=== PATIENT | male | born 1930 | race Caucasian/White ===

== ENCOUNTER 2019-03-27 08:30 | Inpatient (IN) ==
--- OUTSIDE RECORDS SUMMARY | 2019-03-27 08:34 | External Medical Summary | Continuity of Care Document ---
:1930 Author Name You Grover Address Unavailable Unavailable , Care Team Providers Name Role Phone William Torres PA-C Unavailable [email or web address] Unavailable [email or web address] Joycelyn Tinoco M.D. Unavailable [email or web address] Problems Diabetes mellitus (250.00) (E11.9) Chronic obstructive pulmonary disease (496) (J44.9) Obstructive sleep apnea (327.23) (G47.33) Osteoarthritis of knee (715.36) (M17.10) Dyslipidemia (272.4) (E78.5) Disc degeneration, lumbar (722.52) (M51.36) Diabetic peripheral neuropathy (250.60) (E11.42) Allergies and Adverse Reactions Aspirin TABS (Allergy) Medications OneTouch Ultra Blue In Vitro Strip; Test 3 times daily TRELL Callahan Start: 20-Nov-2009 Quantity: 100 Refills: 0 Ventolin HFA 108 (90 Base) MCG/ACT Inhal ation Aerosol Solution; INHALE 2 PUFFS EVERY 4 HOURS NEEDED FOR COUGH AND WHEEZE. Refills: 0 Coreg 3.125 MG Oral Tablet; Take 1 tablet twice daily Refills: 0 Potassium Chloride TBCR; TAKE 10 MEQ Three Times a Week Refills: 0 Clotrimazole-Betamethasone CREA Refills: 0 Furosemide 20 MG Oral Tablet; TAKE 1 TABLET 3 TIMES A WEEK Refills: 0 Advair Diskus 500-50 MCG/DOSE Inhalation Aerosol Powder Breath Activated; INHALE 1 PUFF TWICE DAILY. TRELL Torres Start: 22-Dec-2010 Quantity: 1 Refills: 5 Nasal CPAP; 11 cm of water, cflex of 2. Nasal pillows, 20 min ramp, heated, humidified.Dx: 327.23 MARYANNE: 99 months Sig: Wear q.h.s. Lenore Tinoco Start: 16-Aug-2013 Quantity: 1 Refills: 0 Mupirocin Calcium 2 % External Cream; Apply to nostril twice daily Lenore Tinoco Start: 27-Jun-2013 Quantity: 1 15 GM Tube Refills: 0 Spiriva HandiHaler 18 MCG Inhalation Capsule; INHALE O NE DOSE ONCE DAILY TRELL Torres Start: 02-Dec-2012 Quantity: 30 Refills: 3 Coumadin TABS; TAKE TABLET as directed Refills: 0 Procedures History of Knee Replacement Status: Comp leted History of Colonoscopy (Fiberoptic) Stat us: Completed Immunizations Pneumococcal polysaccharide vaccine, 23 valent On: 11-Jul-19 10 Prevnar 13 Intramuscular Suspension On: 06-Feb-2015 13:48 Lot #: [id number], [place] Social History - Smoking Status Former smoker Plan of Treatment Planned Observations Planned Goals not documented Results No Known Results Results not documented
[2019-03-27 08:57] LABS: Basophils # (auto) 0.03 K/uL (0-0.2); Basophils % (auto) 0.4 %; Eosinophils # (auto) 0.15 K/uL (0-0.5); Eosinophils % (auto) 1.8 %; Hematocrit (blood only) 39.6 % (42-52); Hemoglobin 12.8 g/dL (14.0-18.0); Immature Granulocytes # (auto) 0.01 K/uL (0.00-0.02); Immature Granulocytes % (auto) 0.1 %; Lymphocytes # (auto) 1.79 K/uL (1.2-3.4); Lymphocytes % (auto) 21.5 %; Mean Corpuscular Hemoglobin 29.4 pg (25-34); Mean Corpuscular Hgb Conc 32.3 g/dL (32-36); Mean Corpuscular Volume 90.8 fL (80-100); Mean Platelet Volume 10.7 fL (7.4-10.4); Monocytes # (auto) 0.66 K/uL (0.11-0.59); Monocytes % (auto) 7.9 %; Neutrophils # (auto) 5.67 K/uL (1.4-6.5); Neutrophils % (auto) 68.3 %; Platelet Count 154 K/uL (130-400); RDW Standard Deviation 49.7 fL (36.4-46.3); Red Blood Count 4.36 M/uL (4.7-6.1); White Blood Count 8.31 K/uL (4.8-10.8)
--- NOTE | 2019-03-27 09:09 | XRay Report ---
XR chest 1V portable CLINICAL HISTORY: Atypical chest pain COMPARISON STUDY: 06/08/2013 FINDINGS: The heart is enlarged. There is radiographic evidence of pulmonary edema. There is no lobar consolidation.[ IMPRESSION: Cardiomegaly and pulmonary edema pattern. Clinical and radiographic follow-up recommended Electronically signed by: Warner Parker M.D. 03/27/2019 9:07 AM
[2019-03-27 09:13] LABS: Albumin Level 3.2 gm/dl (3.4-5.0); BUN Creatinine Ratio 16.9 (10-20); Calcium 9.3 mg/dl (8.5-10.1); Creatinine Clr Calc Pharmacy 40.9 ml/min; Est GFR (African American) 41.1; Est GFR (Non-African American) 35.5; Potassium 4.3 mmol/L (3.5-5.1)
[2019-03-27 09:17] LABS: Albumin Globulin Ratio 0.7 (0.9-2); Bilirubin,Total 1.3 mg/dl (0.2-1); Globulin 4.7 gm/dl (2.5-4.0); Total Protein 7.9 gm/dl (6.4-8.2); Troponin I 0.025 ng/ml (0-0.045)
--- NOTE | 2019-03-27 11:28 | Emergency Department Note ---
Entered by Manolo Vitale acting as a scribe for History of Present Illness General Chief complaint: Chest Pain Stated complaint: CHEST PAIN Time Seen by Provider: 03/27/19 08:36 Source: patient History of Present Illness Provider complaint: Chest pain Onset (ago): day(s) 3 Location: chest Radiation: extremity Severity: similar to prior episodes Pain Consistency: + intermittent Relieved By: + other (Sitting up) Associated symptoms: + cough and + shortness of breath; no fever/chills and no nausea/vomiting The patient is an 88 year old male who presents to the Emergency Room with complaints of intermittent left sided chest pain that has been persistently occurring each night for the past 3 nights. The patient states he has a history of indigestion, especially over night, so he takes Tums to relieve the pain, however for the past 3 nights it has not been effective to help the pain. The patient adds that sometimes the pain radiates to his left shoulder. He also mentioned that the pain is usually better with sitting up and throughout the day it tends to subside. Additionally the patient endorses shortness of breath and cough that has been worse as of late. The patient reports his breathing difficulty is worse with exertion. Per the patient's family, his breathing issues initiated 15 years ago after having a severe case of pneumonia. The patient's family also mentioned that a couple of weeks ago the patient had an appointment with cardiology and everything was normal. The patient denies any fevers, nausea, or vomiting. Home Medications Home Medications Medication Instructions Recorded Confirmed Type atorvastatin 10 mg PO QAM 03/27/19 03/27/19 History fluticasone propion-salmeterol 1 inh INHALATION BID 03/27/19 03/27/19 History [Advair Diskus] furosemide 20 mg PO MOWEFR 03/27/19 03/27/19 History lisinopril 10 mg PO QAM 03/27/19 03/27/19 History tiotropium bromide [Spiriva with 1 cap INHALATION QAM 03/27/19 03/27/19 History HandiHaler] warfarin 2.5 mg PO SUSA 03/27/19 03/27/19 History warfarin 5 mg PO MOTUWETHFR 03/27/19 03/27/19 History Allergies Allergy/AdvReac Type Severity Reaction Status Date / Time aspirin Allergy Intermediate HIVES Verified 03/27/19 09:58 oxycodone AdvReac Mild INTOLERATE Verified 03/27/19 09:58 TO PERCOCET OR OXYCONTIN Past Med/Surg History Medical History Diabetes mellitus type II, controlled (Chronic) Coronary artery disease (Chronic) Sleep apnea (Chronic) Lower respiratory tract infection (Acute) Acute respiratory failure (Acute) Altered mental state (Acute) Dyslipidemia (Chronic) Diabetic neuropathy (Chronic) Abdominal aortic aneurysm (Chronic) CHF (congestive heart failure) (Chronic) "systolic and diastolic LVEF 40% May 2013" CKD (chronic kidney disease), stage III (Chronic) Cerebrovascular disease (Chronic) "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 and A total of 10 systems reviewed and were otherwise negative Physical Exam Vital Signs Vital Signs - 24 hr 03/27/19 08:37 03/27/19 08:40 03/27/19 08:41 Temperature 36.8 C Temperature Source Oral Sepsis Recent Fever Within 48 Hours No Sepsis Action Taken by Nursing No Action Required Pulse Rate 70 79 Pulse Rate from SpO2 Sensor 76 Pulse Rhythm Regular Pulse Strength Normal Respiratory Rate 20 22 Respiratory Effort / Characteristics Non-Labored Spontaneous Respiratory Depth Normal Respiratory Pattern Regular Blood Pressure 136/99 136/99 Blood Pressure Mean 111 111 Pulse Oximetry 94 93 93 Oxygen Delivery Method Room Air Room Air 03/27/19 08:42 03/27/19 08:50 03/27/19 09:00 Temperature Temperature Source Sepsis Recent Fever Within 48 Hours Sepsis Action Taken by Nursing Pulse Rate 76 73 71 Pulse Rate from SpO2 Sensor 80 72 74 Pulse Rhythm Pulse Strength Respiratory Rate 20 19 23 Respiratory Effort / Characteristics Respiratory Depth Respiratory Pattern Blood Pressure 130/69 Blood Pressure Mean 89 Pulse Oximetry 94 93 93 Oxygen Delivery Method 03/27/19 09:01 03/27/19 09:10 03/27/19 09:20 Temperature Temperature Source Sepsis Recent Fever Within 48 Hours Sepsis Action Taken by Nursing Pulse Rate 83 80 77 Pulse Rate from SpO2 Sensor 78 78 75 Pulse Rhythm Pulse Strength Respiratory Rate 22 25 H 21 Respiratory Effort / Characteristics Respiratory Depth Respiratory Pattern Blood Pressure Blood Pressure Mean Pulse Oximetry 93 94 93 Oxygen Delivery Method 03/27/19 09:30 03/27/19 09:31 03/27/19 09:40 Temperature Temperature Source Sepsis Recent Fever Within 48 Hours Sepsis Action Taken by Nursing Pulse Rate 62 75 72 Pulse Rate from SpO2 Sensor 69 72 74 Pulse Rhythm Pulse Strength Respiratory Rate 21 19 27 H Respiratory Effort / Characteristics Respiratory Depth Respiratory Pattern Blood Pressure 152/91 H Blood Pressure Mean 111 Pulse Oximetry 92 92 92 Oxygen Delivery Method 03/27/19 09:50 03/27/19 10:00 03/27/19 10:10 Temperature Temperature Source Sepsis Recent Fever Within 48 Hours Sepsis Action Taken by Nursing Pulse Rate 69 69 68 Pulse Rate from SpO2 Sensor 68 70 69 Pulse Rhythm Pulse Strength Respiratory Rate 21 20 19 Respiratory Effort / Characteristics Respiratory Depth Respiratory Pattern Blood Pressure 159/86 H Blood Pressure Mean 110 Pulse Oximetry 93 93 93 Oxygen Delivery Method 03/27/19 10:20 03/27/19 10:30 03/27/19 10:31 Temperature Temperature Source Sepsis Recent Fever Within 48 Hours Sepsis Action Taken by Nursing Pulse Rate 70 64 59 L Pulse Rate from SpO2 Sensor 66 70 65 Pulse Rhythm Pulse Strength Respiratory Rate 20 20 23 Respiratory Effort / Characteristics Respiratory Depth Respiratory Pattern Blood Pressure 160/88 H Blood Pressure Mean 112 Pulse Oximetry 92 91 93 Oxygen Delivery Method 03/27/19 10:40 03/27/19 10:50 Temperature Temperature Source Sepsis Recent Fever Within 48 Hours Sepsis Action Taken by Nursing Pulse Rate 71 72 Pulse Rate from SpO2 Sensor 71 68 Pulse Rhythm Pulse Strength Respiratory Rate 15 21 Respiratory Effort / Characteristics Respiratory Depth Respiratory Pattern Blood Pressure Blood Pressure Mean Pulse Oximetry 93 92 Oxygen Delivery Method CONSTITUTIONAL/VITAL SIGNS: Reviewed / noted above. GENERAL: Non-toxic in appearance. INTEGUMENTARY: Warm, dry, and [place]. HEAD: Normocephalic. EYES: without scleral icterus or trauma. ENT/OROPHARYNX: clear and moist. LYMPHADENOPATHY/NECK: Is supple without lymphadenopathy or meningismus. RESPIRATORY: Lungs clear and equal. CARDIOVASCULAR: Regular rate and rhythm. GI/ABDOMEN: Soft and nontender. No organomegaly or pulsatile mass. No rebound or guarding. Normal bowel sounds. EXTREMITIES: Warm and well perfused. BACK: No CVA tenderness. NEUROLOGICAL: Intact without focal deficits. PSYCHIATRIC: normal affect. MUSCULOSKELETAL: Normally developed with good muscle tone. Impression & Plan Intermittent left-sided chest pain Discharge Plan Visit Data Chief Complaint: Chest Pain Stated Complaint: CHEST PAIN ED Provider: Sunny Churchill Discharge Problem: Intermittent left-sided chest pain Forms Stand Alone Forms: My [facility] Prescriptions Prescriptions: No Action atorvastatin 10 mg tablet 10 mg PO QAM RF: 0 lisinopril 10 mg tablet 10 mg PO QAM RF: 0 warfarin 5 mg tablet 5 mg PO MOTUWETHFR RF: 0 warfarin 5 mg tablet 2.5 mg PO SUSA RF: 0 fluticasone propion-salmeterol [Advair Diskus] 500-50 mcg/dose blister with device 1 inh inhalation BID RF: 0 furosemide 20 mg tablet 20 mg PO MOWEFR RF: 0 Spiriva with HandiHaler 18 mcg capsule, w/inhalation device 1 cap inhalation QAM RF: 0 The scribe's documentation has been prepared under my direction and personally reviewed by me in its entirety. I confirm that the note above accurately reflects all work, treatment, procedures, and medical decision making performed by me.
[2019-03-27 11:35] LABS: INR 2.1 (0.9-1.1); Prothrombin Time 20.4 Seconds (9.0-12.0)
--- NOTE | 2019-03-27 12:15 | History & Physical Report ---
Date of Service March 27, 2019 Assessment & Plan (1) Intermittent left-sided chest pain: This is a 88yo M with a PMH of DM II, CKD III, diastolic HF, paroxysmal A Fib on coumadin, h/o AAA repair in 2012 and other medical problems listed below who presents with intermittent chest pain. -Intermittent chest pain at night for years, worse for the past 3 nights. Non- exertional. Currently chest pain free -Initial troponin negative. EKG with atrial fibrillation at 81 bpm with PVCs. Chest x-ray with cardiomegaly and evidence of pulmonary edema -Likely multi-factorial in the setting of heart failure, A. fib and COPD -Trend troponin, monitor on telemetry -2D echo, CT chest ordered for further evaluation (2) Chronic diastolic heart failure: Most recent TTE from November 2015 with mildly dilated LV chamber with concentric LVH, EF of 57%, grade II diastolic dysfunction, mild aortic valve sclerosis -CXR with evidence of pulmonary edema. No crackles or BLE edema on exam -Ordering a CT chest without contrast for further evaluation -Will give 20 mg IV Lasix and continue to monitor volume status closely -Low-sodium diet, strict I's and O's, daily weights (3) Paroxysmal atrial fibrillation: (4) Tachy-zaid syndrome: Initial EKG with rate controlled A. fib at 81 bpm -Beta-chuckie recently discontinued due to sinus pauses on Holter monitor -Anticoagulated on Coumadin with therapeutic INR of 2.1 (5) Status post abdominal aortic aneurysm repair: H/o AAA repair in 2012. Follows with provider annually at [facility] (6) CKD (chronic kidney disease), stage III: Kidney function at baseline (Cr ~1.7) -Follows with Dr. Fuentes -Continue to monitor with daily BMP (7) Diabetes mellitus type II, controlled: A1c of 6.3 in Jan 2019 -Does not require home diabetic medications -Carb consistent diet, add accuchecks and SSI if indicated (8) Sleep apnea: Bringing CPAP from home, wears HS DVT Ppx: Coumadin Code status: FULL per discussion with patient, family PCP: Liam Dispo: OBSERVATION med tele. Discharge planning, PT and OT ordered (patient lives alone, 88yo M) Patient seen in collaboration with Dr. Erickson. Please see addendum. History of Present Illness Chief Complaint: chest pain Primary Care Provider: Felix Wheeler MD This is a 88yo M with a PMH of DM II, CKD III, diastolic HF, paroxysmal A Fib on coumadin, h/o AAA repair in 2012 and other medical problems listed below who presents with intermittent chest pain. Patient endorses long-standing history of intermittent chest pain for the past 3 years, mainly awakening him when sleeping at night. Describes pain as left-sided with radiation to left arm. Denies any associated diaphoresis, shortness of breath, nausea or vomiting. Episodes usually last about 10 minutes before subsiding and usually resolves after patient takes Tums. Does not experience chest pain with exertion or during the day generally. For the past 3 nights, patient has been waking up with similar dull aching chest pain on the left side but it is not resolved after taking Tums. Family brought patient in for further evaluation. Of note, patient lives alone. Follows with Dr. Sherman for history of paroxysmal A. fib on Coumadin and mixed systolic and diastolic CHF. At clinic on March 09, patient was euvolemic and feeling well. Beta-chuckie was discontinued due to multiple 2-second pauses on Holter monitor but no other changes to medication were made at this time. Most recent TTE from November 2015 with mildly dilated LV chamber with concentric LVH, EF of 57%, grade II diastolic dysfunction, mild aortic valve sclerosis. Currently, patient is chest pain-free. Endorses longstanding non-productive cough. Denies any fever, chills, lightheadedness, visual changes, palpitations, shortness of breath, nausea, vomiting, abdominal pain, dysuria, diarrhea constipation. Patient manages medications by himself. Allergies Allergy/AdvReac Type Severity Reaction Status Date / Time aspirin Allergy Intermediate HIVES Verified 03/27/19 09:58 levofloxacin [From Levaquin] AdvReac Severe Delirium Verified 03/27/19 17:26 oxycodone AdvReac Mild INTOLERATE Verified 03/27/19 09:58 TO PERCOCET OR OXYCONTIN Home Medications Home Medications Medication Instructions Recorded Confirmed Type albuterol sulfate [Ventolin HFA] 1 puff INHALATION Q6H PRN 03/27/19 03/27/19 History atorvastatin 10 mg PO QAM 03/27/19 03/27/19 History cetirizine 5 mg PO HS 03/27/19 03/27/19 History cholecalciferol (vitamin D3) 5,000 unit PO DAILY 03/27/19 03/27/19 History fluticasone propion-salmeterol 1 inh INHALATION BID 03/27/19 03/27/19 History [Advair Diskus] furosemide 20 mg PO MOWEFR 03/27/19 03/27/19 History hydroxyzine HCl 10 mg PO QID PRN 03/27/19 03/27/19 History lisinopril 10 mg PO QAM 03/27/19 03/27/19 History tiotropium bromide [Spiriva with 1 cap INHALATION QAM 03/27/19 03/27/19 History HandiHaler] warfarin 2.5 mg PO MOFR@1600 03/27/19 03/27/19 History warfarin 5 mg PO SUTUWETHSA@1600 03/27/19 03/27/19 History Past Med/Surg History Medical History (Updated 03/27/19 @ 13:59 by Katarina Paula PA-C) Abdominal aortic aneurysm (Chronic) s/p AAA repair in 2012 at [facility]) Cerebrovascular disease (Chronic) "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" Chronic diastolic heart failure (Chronic) CKD (chronic kidney disease), stage III (Chronic) Coronary artery disease (Chronic) Diabetes mellitus type II, controlled (Chronic) Diabetic neuropathy (Chronic) Dyslipidemia (Chronic) Sleep apnea (Chronic) Surgical History Status post abdominal aortic aneurysm repair (Chronic) " 2012 [facility]" Status post total knee replacement (Chronic) Family History (Updated 03/27/19 @ 13:54 by Katarina Paula PA-C) Other Thyroid disorder Social History (Updated 03/27/19 @ 13:55 by Katarina Paula PA-C) Preferred Language: Gambian Communication Ability: Effective Entry Level Installation Technician Required: No Beliefs That Will Affect Care: None marital status: / marital status details: in October 2017 Current Living Situation: Alone Other Information That Helps Us Care for You: No Feels Safe at Home: Yes Safety Concerns: Feels Safe At This Time Smoking Status: Former smoker Years Smoked: 51 ; Hx Alcohol Use: No Hx Substance Use: No Review of Systems Review of Systems: At least ten systems reviewed and negative except as noted in the HPI. Physical Exam Physical Exam: General Appearance: WD/WN, vitals as above, NAD, sitting up in bed, pleasant, conversing easily Head: normocephalic, atraumatic Eyes: normal inspection, PERRL, conjunctivae normal, anicteric sclerae ENT: hard of hearing, external ear and nose normal, oropharynx normal Neck: trachea midline, no thyromegaly normal visual inspection Respiratory: normal respiratory effort, scattered expiratory wheezes, no rales or rhonchi. Normal insp/exp effort, no accessory muscle use Cardiovascular: irregular rate & rhythm, systolic murmur, normal peripheral pulses, no BLE edema. Vessels: no JVD or carotid bruit Chest: normal inspection of chest Abdomen/GI: normal bowel sounds, soft, nontender, no hepatosplenomegaly Extremities/Musculoskelatal: no cyanosis or clubbing, extremities motor strength 5/5 Neurologic: PERRL, EOMI, accommodation nl, no face palsy, no dysarthria CN's II-XI intact bilaterally and moves all extremities Psychiatric: A+Ox3, euthymic affect Skin: no rashes, normal color, warm/dry Results & Data Vital Signs (Past 12 Hours) Vital Signs Temp Pulse Resp BP Pulse Ox 03/27/19 10:50 72 21 92 03/27/19 10:40 71 15 93 03/27/19 10:31 59 L 23 93 03/27/19 10:30 64 20 160/88 H 91 03/27/19 10:20 70 20 92 03/27/19 10:10 68 19 93 03/27/19 10:00 69 20 159/86 H 93 03/27/19 09:50 69 21 93 03/27/19 09:40 72 27 H 92 03/27/19 09:31 75 19 92 03/27/19 09:30 62 21 152/91 H 92 03/27/19 09:20 77 21 93 03/27/19 09:10 80 25 H 94 03/27/19 09:01 83 22 93 03/27/19 09:00 71 23 130/69 93 03/27/19 08:50 73 19 93 03/27/19 08:42 76 20 94 03/27/19 08:41 93 03/27/19 08:40 79 22 136/99 93 03/27/19 08:37 36.8 C 70 20 136/99 94 Laboratory Results Short CBC 03/27/19 Range/Units 08:39 WBC 8.31 (4.8-10.8) K/uL Hgb 12.8 L (14.0-18.0) g/dL Hct 39.6 L (42-52) % Plt Count 154 (130-400) K/uL BMP 03/27/19 08:39 Sodium 139 Potassium 4.3 Chloride 108 H Carbon Dioxide 25 BUN 29 H Creatinine 1.71 H Glucose 118 H Calcium 9.3 Cardiac Enzymes 03/27/19 Range/Units 08:39 Troponin I 0.025 (0-0.045) ng/ml Liver Function 03/27/19 Range/Units 08:39 Total Bilirubin 1.3 H (0.2-1) mg/dl AST 17 (15-37) U/L ALT 18 (12-78) U/L Alkaline Phosphatase 59 (45-117) U/L Albumin 3.2 L (3.4-5.0) gm/dl Diagnostic Findings CXR: IMPRESSION: Cardiomegaly and pulmonary edema pattern. Clinical and radiographic follow-up recommended CT chest without contrast: pending ECG Rhythm: atrial fibrillation Findings: + PVC Code Status & VTE Plan VTE Prophylaxis Plan VTE Prophylaxis will be ordered: Yes Supervising Physician Co-Signing Physician Notes Attending Addendum: delayed entry date of service as noted above care coordinated with JAMES Paula please refer to her notes for full details, I agree with her notes patient seen and examined, records reviewed by myself as well on exam, patient seen resting in bedside chair, in good spirits, pleasant denies active chest pain does have chronic dyspnea on exertion, somewhat progressed the past few days no other symptoms VS noted and reviewed oriented x 3 , not in distress, speaks in sentences with no effort nor accessory muscle use normal rate, regular rhythm, no murmurs diminished breath sounds, intermittent faint wheeze, bilaterally non distended, soft, nontender mild lower leg and bipedal edema, erythema, warmth no neuro deficits WBC 8.3 Hg 12.8 Crea 1.7 ASSESSMENT AND PLAN LEFT SIDED CHEST PAIN r/o ACS initial 2 trop negative, EKG no signs of ischemia echo ordered Medical Laboratory Scientist consulted EXERTIONAL DYSPNEA LIKELY SECONDARY TO DIASTOLIC CHF, MILD EXACERBATION UNDERLYING COPD CT chest: 1. Pulmonary edema with bilateral pleural effusions 2. Mild adenopathy 3. No evidence of lobar consolidation 4. Indeterminate 12 mm retroperitoneal nodule posterior lateral to the superior aspect of the right kidney -- Lasix 20mg IV one dose given usually on lasix 20mg // -- added Nebs + Hypertonic saline + Chest Physiotherapy continue usual Advair, Spiriva 2 step test before discharge RETROPERITONEAL NODULE CT chest: there is a left renal parapelvic cyst versus hydronephrosis. The proximal aspect of an aortic stent graft is visualized. There is a 12 mm retroperitoneal nodule posterior lateral to the upper pole of the right kidney -- further work up and management as outpatient other diagnoses and plan of care as per JAMES Paula's notes case discussed with patient's daughter and granddaughter at the bedside in detail and at length all questions answered they are understanding, agreeable and comfortable with the plan of care Chicho Erickson MD
[2019-03-27] MEDS ORDERED: FUROSEMIDE 20 MG in SYRINGE 0 ML IV STA (13:20)
[2019-03-27] MEDS ORDERED: LISINOPRIL 10 MG TAB PO STA (13:21)
[2019-03-27] MEDS ORDERED: ACETAMINOPHEN 325 MG TAB PO PRN (13:23)
[2019-03-27] MEDS ORDERED: ALBUTEROL HFA 8 GM INHALER INH PRN (13:23)
[2019-03-27] MEDS ORDERED: POLYETHYLENE (MIRALAX) 17 GM PACK PO PRN (13:23)
[2019-03-27] MEDS: LEVALBUTEROL HCL 0.63 MG/3 ML NEB NEB SCH ×2 (13:42→19:01)
--- NOTE | 2019-03-27 14:01 | CT Scan Report ---
CT chest wo con CLINICAL HISTORY: Atypical chest pain. Abnormal chest x-ray COMPARISON STUDY: Chest x-ray dated 03/27/2019 CT DOSE: 984.95 mGy.cm TECHNIQUE: CT of the thorax was performed from the thoracic inlet to the lung bases. Images are revi ewed in the axial, sagittal, and coronal planes. IV contrast was not administered for this examinatio n. A dose lowering technique was utilized adhering to the principles of ALARA. FINDINGS: Thyroid: Imaged portions of the thyroid gland are normal in appearance. Thoracic aorta: There is mild dilatation of the ascending thoracic aorta which measures 43 mm. Heart: The heart is mildly enlarged. There are coronary artery calcifications. There is no significan t pericardial effusion. Lungs and pleural spaces: There are small bilateral pleural effusions. There is pulmonary emphysema. There is subpleural septal edema. There is lower lobe bronchovascular bundle thickening with areas of mucous plugging. Mediastinum: There are multiple mildly enlarged mediastinal lymph nodes. Iliana: Hilar structures are difficult to evaluate without contrast. Mildly enlarged hilar nodes are castaneda spected Axilla: There is no evidence of pathologic axillary lymphadenopathy Upper abdomen: There is a left renal parapelvic cyst versus hydronephrosis. The proximal aspect of a n aortic stent graft is visualized. 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 IMPRESSION: 1. Pulmonary edema with bilateral pleural effusions 2. Mild adenopathy 3. No evidence of lobar consolidation 4. Indeterminate 12 mm retroperitoneal nodule posterior lateral to the superior aspect of the right k dunianey Electronically signed by: Warner Parker M.D. 03/27/2019 2:00 PM
[2019-03-27] MEDS ORDERED: PERFLUTREN LIPID MICROSPHERE (DEFINITY) IV ONE (15:13)
[2019-03-27] MEDS ORDERED: WARFARIN SOD 5 MG TAB PO SCH (16:00)
[2019-03-27] MEDS ORDERED: WARFARIN SOD 2.5 MG TAB PO SCH (16:00)
[2019-03-27] MEDS: CETIRIZINE HCL 10 MG TABLET PO SCH (18:35)
[2019-03-27] MEDS: SODIUM CHLOR 7% 4 ML NEB NEB SCH (19:01)
[2019-03-27] MEDS: FLUTICASONE/SALMETEROL (ADVAIR) 500/50 INH 14 PUFF INH SCH (21:18)
[2019-03-28] MEDS: LEVALBUTEROL HCL 0.63 MG/3 ML NEB NEB SCH ×4 (00:58→18:57)
[2019-03-28 06:11] LABS: Hematocrit (blood only) 38.3 % (42-52); Hemoglobin 12.4 g/dL (14.0-18.0); Mean Corpuscular Hemoglobin 28.8 pg (25-34); Mean Corpuscular Hgb Conc 32.4 g/dL (32-36); Mean Corpuscular Volume 88.9 fL (80-100); Mean Platelet Volume 10.8 fL (7.4-10.4); Platelet Count 160 K/uL (130-400); RDW Coefficient of Variation 14.8 % (11.5-14.5); RDW Standard Deviation 48.1 fL (36.4-46.3); Red Blood Count 4.31 M/uL (4.7-6.1); White Blood Count 4.06 K/uL (4.8-10.8)
[2019-03-28 06:41] LABS: Prothrombin Time 19.9 Seconds (9.0-12.0)
[2019-03-28 06:51] LABS: BUN Creatinine Ratio 19.1 (10-20); Calcium 9.1 mg/dl (8.5-10.1); Creatinine Clr Calc Pharmacy 36.5 ml/min; Est GFR (African American) 36.7; Est GFR (Non-African American) 31.6; Potassium 4.3 mmol/L (3.5-5.1)
[2019-03-28] MEDS: SODIUM CHLOR 7% 4 ML NEB NEB SCH ×2 (07:26→18:57)
[2019-03-28] MEDS: FLUTICASONE/SALMETEROL (ADVAIR) 500/50 INH 14 PUFF INH SCH ×2 (07:56→20:10)
[2019-03-28] MEDS: TIOTROPIUM BROMIDE 5 PUFF/90 MCG INH INH SCH (07:57)
[2019-03-28] MEDS: ATORVASTATIN 10 MG TAB PO SCH (07:57)
[2019-03-28] MEDS: LISINOPRIL 10 MG TAB PO SCH (07:57)
[2019-03-28] MEDS: CHOLECALCIFEROL 1,000 UNITS TAB PO SCH (07:57)
[2019-03-28] MEDS: hydrOXYzine HCl 10 MG TAB PO PRN (09:20)
--- NOTE | 2019-03-28 09:30 | XRay Report ---
XR chest 1V portable CLINICAL HISTORY: Pulmonary edema COMPARISON STUDY: 03/27/2019 FINDINGS: The heart remains enlarged. There is minimal improvement in the previously described pulmon stephon edema pattern.[There is no lobar consolidation. There are no large pleural effusions. IMPRESSION: Pulmonary edema, slightly improved when compared the prior study Electronically signed by: Warner Parker M.D. 03/28/2019 9:29 AM
[2019-03-28] MEDS: PANTOprazole 40 MG TAB PO SCH (12:49)
--- NOTE | 2019-03-28 12:54 | Hospitalist Progress Note ---
Date of Service March 28, 2019 Assessment & Plan (1) Intermittent left-sided chest pain: 88yo M with a PMH of DM II, CKD III, diastolic HF, paroxysmal A Fib on coumadin, h/o AAA repair in 2012 and other medical problems listed below who presents with intermittent chest pain. Symptoms seem to occur mostly at night and relief with Tums Atypical feature on presentation Need to r/o ACS Troponin x4 negative EKG showed afib with no acute finding Chest x-ray with cardiomegaly and evidence of pulmonary edema ECHO showed no wall motion abnormality with EF 50-55 % Son is very concerned and making pt to get anxious Will consult cardiology for possible stress test to do inpatient or to arrange as an outpatient Not a good candidate for cardiac cath due to CKD Will add PPI daily Continue monitor (2) Chronic diastolic heart failure: ECHO showed no wall motion abnormality, grade II diastolic dysfunction and EF 50 to 55% CXR showed cardiomegaly and pulmonary edema pattern. No sign of CHF exacerbation on exam Received Lasix IV 20mg Clinically stable (3) Paroxysmal atrial fibrillation: (4) Tachy-zaid syndrome: Afib with Heat Rate control Metoprolol recently discontinued due to sinus pauses on Holter monitor Continue Coumadin 2. (5) Status post abdominal aortic aneurysm repair: H/o AAA repair in 2012. Follows with provider annually at [place] (6) CKD (chronic kidney disease), stage III: Kidney function at baseline (Cr ~1.7) Creatinine 1.88 today Continue Monitor BMP (7) Diabetes mellitus type II, controlled: A1c of 6.3 in Jan 2019 Monitor BS (8) Sleep apnea: Bringing CPAP from home, wears HS DVT Ppx: Coumadin Code status: FULL Disposition Will discharge once medically stable Subjective Pt was seen and examined Sitting in bed with no distress with son at bedside Pt said that he feels fine now Son said that he has been having intermittent chest pain for over 1 year Pt said that it seems to occurs mostly at night and relives with Tums Nurse called today after I saw the patient that he just had chest pain radiating to left arm Denies any palpitation, fever and SOB Physical Exam Physical Exam: General- No acute distress Head- atraumatic Eyes- PERRL, EOMI, ENT- oropharynx clear Neck- supple, no JVD Lungs- clear to auscultation Heart- irregular rhythm; +systolic murmur Abdomen- normal bowel sounds, soft, nontender Extremities- no calf tenderness Neuro- alert, oriented x 3; PERRL, EOMI; no facial palsy; no dysarthria Skin- warm & dry Results & Data Vital Signs (Past 12 Hours) Vital Signs Temp Pulse Pulse Resp BP BP Pulse Ox 03/28/19 11:16 36.4 C L 68 20 154/61 H 93 03/28/19 10:06 61 03/28/19 07:28 71 14 96 03/28/19 07:07 36.5 C 60 20 146/66 H 92 03/28/19 04:00 36.6 C 68 18 148/67 H 90 03/28/19 01:01 73 16 93
[2019-03-28] MEDS ORDERED: FUROSEMIDE 40 MG in SYRINGE 0 ML IV ONE (16:30)
[2019-03-28] MEDS: WARFARIN SOD 5 MG TAB PO SCH (16:38)
--- NOTE | 2019-03-28 16:51 | Cardiology Consultation ---
Date of Consultation March 28, 2019 Assessment & Plan (1) Intermittent left-sided chest pain: Chest discomfort and shortness of breath appear atypical in nature that they occur predominantly at night and not not in relationship to exertion. No EKG changes suggestive of ischemia and troponins are nondetectable. Symptoms are suspicious for orthopnea with exam reflecting jugular venous distention. Echocardiogram reflects possible partial flail anterior mitral valve leaflet with at least moderate mitral insufficiency Plan: Persistent hypertension remains present we will add topical nitrates for blood pressure control. Additional dose of furosemide 40 mg IV to be given this evening We will follow renal function closely Patient will be kept n.p.o. after midnight for consideration of possible transesophageal echocardiogram Discussed findings in detail with patient and his daughter as well as ongoing management plans. Both patient and daughter stressed that if he should need tertiary evaluation or surgery he would like to be referred to [facility] where previous interventions have been performed (2) Paroxysmal atrial fibrillation: Now persistent with past documented tachybradycardia syndrome by Holter in 2018 multiple pauses greater than 2.5 seconds but no profound pauses. Patient beta-chuckie intolerant, would avoid AV blocking medications (3) Congestive heart failure: As above (4) Mitral insufficiency: Heavily calcified mitral valve annulus with possible partially flail anterior mitral valve leaflet at least moderate mitral insufficiency (5) CKD (chronic kidney disease), stage III: (6) Abdominal aortic aneurysm: History of Present Illness Reason for Consultation: Nocturnal chest discomfort, shortness of breath Requesting Physician: Dr. Oates Attending Physician: Ronda Oates MD History of Present Illness Patient is an 88-year-old male with complex constellation of past medical issues and ongoing concerns. His history is notable for 1. Past paroxysmal now persistent atrial fibrillation 2. Borderline tachybradycardia syndrome with beta-chuckie intolerance, complex and frequent ventricular ectopy 3. Hypertensive heart disease with past diastolic heart failure and class III chronic renal insufficiency 4. Chronic obstructive lung disease with obstructive sleep apnea 5. Type 2 diabetes mellitus with neuropathy 6. History of lacunar stroke 7. Atherosclerotic peripheral vascular disease status post endovascular repair of abdominal aortic aneurysm and right common internal iliac artery aneurysm [facility] 2012 with embolization closure of endovascular leak Patient presents this admission noting symptoms of atypical chest pressure worse when lying flat at night but radiating to left shoulder and arm. There is some component of dyspnea and orthopnea. Symptoms more pronounced just shortly prior to admission lasting nearly 3 days in total duration. Due to persistent sympt oms patient presented to the emergency room troponins were nondetectable and EKGs without acute changes. He remained in atrial fibrillation. Chest x-ray did reflect mild congestive heart failure and he received a single dose of IV furosemide. He is referred now for further evaluation. He is currently comfortable and oxygenating well on room air. Notes no specific exertional relationship to patient's symptoms. Has been active throughout the summer cuts grass and lives independently. No unexplained fevers or infections. No productive cough. No acute weight loss or gain with patient noting substantial but gradual weight loss over the last 3 years Blood pressures have been elevated since admission although improving. He denies any bleeding difficulties melena hematochezia dysuria hematuria Denies syncope or near syncope Notes no productive cough hoarseness wheeze or hemoptysis. Echocardiogram today demonstrates technically difficult study partially prolapsing anterior mitral valve leaflet suggestive of partially flail leaflet and associated at least moderate mitral insufficiency. LV systolic function is preserved Allergies Allergy/AdvReac Type Severity Reaction Status Date / Time aspirin Allergy Intermediate HIVES Verified 03/27/19 09:58 levofloxacin [From Levaquin] AdvReac Severe Delirium Verified 03/27/19 17:26 oxycodone AdvReac Mild INTOLERATE Verified 03/27/19 09:58 TO PERCOCET OR OXYCONTIN Home Medications Home Medications Medication Instructions Recorded Confirmed Type albuterol sulfate [Ventolin HFA] 1 puff INHALATION Q6H PRN 03/27/19 03/27/19 History atorvastatin 10 mg PO QAM 03/27/19 03/27/19 History cetirizine 5 mg PO HS 03/27/19 03/27/19 History cholecalciferol (vitamin D3) 5,000 unit PO DAILY 03/27/19 03/27/19 History fluticasone propion-salmeterol 1 inh INHALATION BID 03/27/19 03/27/19 History [Advair Diskus] furosemide 20 mg PO MOWEFR 03/27/19 03/27/19 History hydroxyzine HCl 10 mg PO QID PRN 03/27/19 03/27/19 History lisinopril 10 mg PO QAM 03/27/19 03/27/19 History tiotropium bromide [Spiriva with 1 cap INHALATION QAM 03/27/19 03/27/19 History HandiHaler] warfarin 2.5 mg PO MOFR@1600 03/27/19 03/27/19 History warfarin 5 mg PO SUTUWETHSA@1600 03/27/19 03/27/19 History Patient History Medical History Abdominal aortic aneurysm (Chronic) s/p AAA repair in 2012 at [facility]) Cerebrovascular disease (Chronic) "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" Chronic diastolic heart failure (Chronic) CKD (chronic kidney disease), stage III (Chronic) Coronary artery disease (Chronic) Diabetes mellitus type II, controlled (Chronic) Diabetic neuropathy (Chronic) Dyslipidemia (Chronic) Sleep apnea (Chronic) Surgical History Status post abdominal aortic aneurysm repair (Chronic) " 2012 [facility]" Status post total knee replacement (Chronic) Family History Other Thyroid disorder Social History Preferred Language: Hungarian Communication Ability: Effective 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 Beliefs That Will Affect Care: None marital status: / marital status details: in October 2017 Current Living Situation: Alone Other Information That Helps Us Care for You: No Feels Safe at Home: Yes Safety Concerns: Feels Safe At This Time Smoking Status: Former smoker Years Smoked: 51 ; Hx Alcohol Use: No Hx Substance Use: No Review of Systems Review of Systems: All systems reviewed & are unremarkable except as noted in HPI & below Physical Exam Constitutional: well developed and + obese; no acute distress ENMT: external ear and nose normal, oropharynx normal Neck: trachea midline, no thyromegaly + thick neck Respiratory: no respiratory distress Auscultation: + wheezes (Mild diffuse) Cardiovascular: Rate/Rhythm: + irregularly irregular Heart Sounds: normal S1, normal S2 and + murmur (Grade 3/6 holosystolic murmur heard best at the apex and mid axillary line) Palpation: normal PMI Vessels: + JVD, normal carotid upstroke and radial pulses present; no carotid bruit Extremities: + edema (Trace) Gastrointestinal (Abdomen): normal bowel sounds, soft, nontender, no hepatosplenomegaly Musculoskeletal: no cyanosis or clubbing, extremities motor strength 5/5 Skin: no rashes, warm and dry Neurologic: moves all extremities; no focal motor deficits Psychiatric: A+Ox3, euthymic affect Results & Data Vital Signs (Past 12 Hours) Vital Signs Temp Pulse Pulse Resp BP BP Pulse Ox 03/28/19 15:15 36.4 C L 76 22 141/61 H 91 03/28/19 13:31 96 H 14 93 03/28/19 11:16 36.4 C L 68 20 154/61 H 93 03/28/19 10:06 61 03/28/19 07:28 71 14 96 03/28/19 07:07 36.5 C 60 20 146/66 H 92 Laboratory Results Laboratory Results - last 24 hr 03/27/19 03/27/19 03/28/19 20:29 20:50 05:40 WBC 4.06 L RBC 4.31 L Hgb 12.4 L Hct 38.3 L MCV 88.9 MCH 28.8 MCHC 32.4 RDW Std Deviation 48.1 H RDW Coeff of Dwayne 14.8 H Plt Count 160 MPV 10.8 H PT INR Sodium Potassium Chloride Carbon Dioxide Anion Gap BUN Creatinine Est Cr Clr Drug Dosing Est GFR ( Amer) Est GFR (Non-Af Amer) BUN/Creatinine Ratio Glucose POC Glucose 125 H Calcium Troponin I 0.021 TSH 03/28/19 03/28/19 03/28/19 05:40 05:40 05:40 WBC RBC Hgb Hct MCV MCH MCHC RDW Std Deviation RDW Coeff of Dwayne Plt Count MPV PT 19.9 H INR 2.0 H Sodium 138 Potassium 4.3 Chloride 106 Carbon Dioxide 24 Anion Gap 8.0 BUN 36 H Creatinine 1.88 H Est Cr Clr Drug Dosing 36.5 Est GFR ( Amer) 36.7 Est GFR (Non-Af Amer) 31.6 BUN/Creatinine Ratio 19.1 Glucose 115 H POC Glucose Calcium 9.1 Troponin I TSH 1.750 03/28/19 03/28/19 03/28/19 07:30 10:54 11:28 WBC RBC Hgb Hct MCV MCH MCHC RDW Std Deviation RDW Coeff of Dwayne Plt Count MPV PT INR Sodium Potassium Chloride Carbon Dioxide Anion Gap BUN Creatinine Est Cr Clr Drug Dosing Est GFR ( Amer) Est GFR (Non-Af Amer) BUN/Creatinine Ratio Glucose POC Glucose 111 H 124 H Calcium Troponin I < 0.015 TSH 03/28/19 16:45 WBC RBC Hgb Hct MCV MCH MCHC RDW Std Deviation RDW Coeff of Dwayne Plt Count MPV PT INR Sodium Potassium Chloride Carbon Dioxide Anion Gap BUN Creatinine Est Cr Clr Drug Dosing Est GFR ( Amer) Est GFR (Non-Af Amer) BUN/Creatinine Ratio Glucose POC Glucose 103 H Calcium Troponin I TSH
[2019-03-28] MEDS: NITROGLYCERIN 2% OINTMENT 30GM TUBE EXT SCH (18:36)
[2019-03-28] MEDS: CETIRIZINE HCL 10 MG TABLET PO SCH (20:10)
[2019-03-29] MEDS: LEVALBUTEROL HCL 0.63 MG/3 ML NEB NEB SCH ×3 (01:02→13:12)
[2019-03-29] MEDS: NITROGLYCERIN 2% OINTMENT 30GM TUBE EXT SCH ×3 (01:19→12:22)
[2019-03-29 06:39] LABS: INR 1.9 (0.9-1.1); Prothrombin Time 18.5 Seconds (9.0-12.0)
--- NOTE | 2019-03-29 07:00 | XRay Report ---
XR chest 1V portable CLINICAL HISTORY: Abnormal chest x-ray. Atypical chest pain. Follow up examination. COMPARISON STUDY: 03/28/2019 FINDINGS: The heart remains enlarged. There is been slight further improvement in the pulmonary edema pattern. There is no focal pulmonary consolidation. There are no large pleural effusions.[ IMPRESSION: Continued interval improvement in the previously identified pulmonary edema Electronically signed by: Warner Parker M.D. 03/29/2019 6:58 AM
[2019-03-29] MEDS: SODIUM CHLOR 7% 4 ML NEB NEB SCH (07:18)
[2019-03-29] MEDS: FLUTICASONE/SALMETEROL (ADVAIR) 500/50 INH 14 PUFF INH SCH ×2 (08:53→20:14)
[2019-03-29] MEDS: TIOTROPIUM BROMIDE 5 PUFF/90 MCG INH INH SCH (08:55)
[2019-03-29] MEDS: LISINOPRIL 10 MG TAB PO SCH (09:00)
[2019-03-29] MEDS: hydrOXYzine HCl 10 MG TAB PO PRN ×2 (10:10→21:50)
[2019-03-29 11:33] LABS: BUN Creatinine Ratio 20.1 (10-20); Calcium 9.1 mg/dl (8.5-10.1); Creatinine Clr Calc Pharmacy 32.7 ml/min; Est GFR (African American) 32.3; Est GFR (Non-African American) 27.8; Potassium 4.2 mmol/L (3.5-5.1)
--- NOTE | 2019-03-29 11:42 | Cardiology Progress Note ---
Date of Service March 29, 2019 Assessment & Plan (1) Intermittent left-sided chest pain: Chest discomfort and shortness of breath appear atypical in nature that they occur predominantly at night and not not in relationship to exertion. No EKG changes suggestive of ischemia and troponins are nondetectable. Symptoms are suspicious for orthopnea with exam reflecting jugular venous distention. Echocardiogram reflects possible partial flail anterior mitral valve leaflet with at least moderate mitral insufficiency Plan: Persistent hypertension remains present we will add topical nitrates for blood pressure control. Additional dose of furosemide 40 mg IV to be given this evening We will follow renal function closely Patient will be kept n.p.o. after midnight for consideration of possible transesophageal echocardiogram Discussed findings in detail with patient and his daughter as well as ongoing management plans. Both patient and daughter stressed that if he should need tertiary evaluation or surgery he would like to be referred to [facility] where previous interventions have been performed Patient this morning improved after single dose of IV diuretics with good diuresis per description (I's and O's not recorded) significant weight loss. Blood pressures are improved. Plan: Transesophageal echocardiogram today to reassess mitral valve. Formal adjustments of diuretics and medications depending on results. Discussed procedure and risks in detail with patient and son (2) Paroxysmal atrial fibrillation: Now persistent with past documented tachybradycardia syndrome by Holter in 2018 multiple pauses greater than 2.5 seconds but no profound pauses. Patient beta-chuckie intolerant, would avoid AV blocking medications (3) Congestive heart failure: As above (4) Mitral insufficiency: Heavily calcified mitral valve annulus with possible partially flail anterior mitral valve leaflet at least moderate mitral insufficiency (5) CKD (chronic kidney disease), stage III: (6) Abdominal aortic aneurysm: Subjective Patient seen and examined, chart, medications, telemetry reviewed. Patient less dyspneic this morning no problems overnight only complaints are in a chair rash. No chest pains or discomfort no tachypalpitations Physical Exam Constitutional: well developed and + obese; no acute distress ENMT: external ear and nose normal, oropharynx normal Neck: trachea midline, no thyromegaly + thick neck Respiratory: no respiratory distress Auscultation: + wheezes (Mild diffuse) Cardiovascular: Rate/Rhythm: + tachycardic and + irregularly irregular Heart Sounds: normal S1, normal S2 and + murmur (Grade 3/6 holosystolic murmur heard best at the apex and mid axillary line) Palpation: normal PMI Vessels: normal carotid upstroke and radial pulses present; no JVD and no carotid bruit Extremities: no edema (Trace) Gastrointestinal (Abdomen): normal bowel sounds, soft, nontender, no hepatosplenomegaly Musculoskeletal: no cyanosis or clubbing, extremities motor strength 5/5 Skin: no rashes, warm and dry Neurologic: moves all extremities; no focal motor deficits Psychiatric: A+Ox3, euthymic affect Results & Data Vital Signs (Past 12 Hours) Vital Signs Temp Pulse Pulse Resp BP BP Pulse Ox 03/29/19 10:39 36.7 C 76 18 137/75 91 03/29/19 07:21 36.5 C 73 18 145/75 H 91 03/29/19 07:15 73 03/29/19 03:28 36.6 C 69 18 92 03/29/19 01:17 121/49 L 03/29/19 01:02 64 18 94
[2019-03-29] MEDS ORDERED: BENZOCAIN/TETRACA/BUTAM SPRAY 200 APPLN/20 GM SPRY EXT ONE (13:17)
[2019-03-29] MEDS ORDERED: MIDAZOLAM HCL 1 MG/ML 2ML VIAL ONE (13:17)
[2019-03-29] MEDS ORDERED: fentaNYL citrate 100 MCG/2 ML VIAL ONE (13:17)
[2019-03-29] MEDS ORDERED: CANNULA ONE (13:17)
[2019-03-29] MEDS ORDERED: ATROPINE SULFATE 0.1 MG/ML 10ML SYR IV ONE (13:22)
--- NOTE | 2019-03-29 13:53 | Pre Anesthesia Assessment ---
Date of Service March 29, 2019 Pre Sedation Assessment Vital Signs Temp Pulse Pulse Resp BP BP Pulse Ox 03/29/19 13:45 66 16 107/62 93 03/29/19 13:40 65 16 123/66 94 03/29/19 13:35 74 16 111/69 93 03/29/19 13:30 70 16 131/69 93 03/29/19 13:25 73 138/70 95 03/29/19 10:39 36.7 C 76 18 137/75 91 03/29/19 07:21 36.5 C 73 18 145/75 H 91 03/29/19 07:15 73 03/29/19 03:28 36.6 C 69 18 92 03/29/19 01:17 121/49 L 03/29/19 01:02 64 18 94 03/28/19 23:14 36.6 C 64 18 123/57 L 94 03/28/19 22:20 63 03/28/19 19:01 73 18 93 03/28/19 18:49 36.5 C 73 20 156/75 H 93 03/28/19 16:55 68 03/28/19 15:15 36.4 C L 76 22 141/61 H 91 Cardiovascular + irregularly irregular + murmur; no gallop Respiratory no respiratory distress + wheezes (Few) Pre-Sedation Airway Assessment Smoking Status: Former smoker Hx Sleep Apnea: No Short, Thick Neck: No Thyromental Distance: > or= 3.5 Finger Breadths Oral Cavity: + Dentures and + WNL Mallampati Class: II ASA: ASA3 NPO Status Date of Last Intake of Fluids: 03/29/19 Time of Last Intake of Fluids: 09:00 Date of Last Intake of Solid Food: 03/28/19 Time of Last Intake of Solid Foods: 18:00 Procedure Planning Contraindications for Sedation: none Current Medications Reviewed: Yes Notes The planned sedation has been discussed with the patient. Informed Consent was obtained. I have identified the patient, determined the appropriateness of sedation and have assessed the patient immediately prior to the procedure. All medicine(s) and interventions are by my order.
--- NOTE | 2019-03-29 14:52 | Cardiology Progress Note ---
Date of Service March 29, 2019 Subjective Patient underwent transesophageal echocardiogram uneventfully. Study demonstrated preserved LV systolic function. There was prolapse of a partially flail small portion of the anterior mitral valve leaflet with associated moderate to moderately severe mitral insufficiency and the eccentric wall impinging jet. Chronic right ventricular and right atrial enlargement was noted with only mild tricuspid insufficiency and normal tricuspid valve regurgitant velocities (no pulmonary hypertension) Plan: Change topical nitrates to oral continue current therapies. No indications for urgent valve replacement or intervention. Copy of study will be made for patient will likely seek second opinion at [facility] Results & Data Vital Signs (Past 12 Hours) Vital Signs Temp Pulse Pulse Resp BP BP Pulse Ox 03/29/19 14:33 36.3 C L 71 16 133/85 91 03/29/19 14:10 68 16 112/54 L 93 03/29/19 14:00 63 16 121/72 94 03/29/19 13:50 72 18 119/72 93 03/29/19 13:45 66 16 107/62 93 03/29/19 13:40 65 16 123/66 94 03/29/19 13:35 74 16 111/69 93 03/29/19 13:30 70 16 131/69 93 03/29/19 13:25 73 138/70 95 03/29/19 10:39 36.7 C 76 18 137/75 91 03/29/19 07:21 36.5 C 73 18 145/75 H 91 03/29/19 07:15 73 03/29/19 03:28 36.6 C 69 18 92
[2019-03-29] MEDS: ATORVASTATIN 10 MG TAB PO SCH (15:40)
[2019-03-29] MEDS: CHOLECALCIFEROL 1,000 UNITS TAB PO SCH (15:40)
[2019-03-29] MEDS: PANTOprazole 40 MG TAB PO SCH (15:40)
[2019-03-29] MEDS: WARFARIN SOD 5 MG TAB PO SCH (15:42)
--- NOTE | 2019-03-29 15:52 | Hospitalist Progress Note ---
Date of Service March 29, 2019 Assessment & Plan (1) Intermittent left-sided chest pain: has not had any episode for last 48 hrs Possible secondary to valvular heart disease, appreciate input from cardiology transthoracic Echo shows mitral valve regurgitation, with flail anterior leaflet of mitral valve, underwent LUIS FELIPE today for better assessment of Mitral valve : LUIS FELIPE shows : prolapse of a partially flail small portion of the anterior mitral valve leaflet with associated moderate to moderately severe mitral insufficiency and the eccentric wall impinging jet. Chronic right ventricular and right atrial enlargement was noted with only mild tricuspid insufficiency and normal tricuspid valve regurgitant velocities (no pulmonary hypertension) No need for emergent mitral valve replacement Added on p.o. nitrate No evidence of acute coronary event/coronary thrombus or plaque rupture ECHO showed no wall motion abnormality with EF 50-55 % Patient will be followed at [facility] cardiology,(had prior vascular procedure/AAA repair at [facility] in 2012) copy of the procedure and images will be given to Pt prior to discharge for continued follow up (2) Chronic diastolic heart failure: ECHO showed no wall motion abnormality, grade II diastolic dysfunction and EF 50 to 55% Stable volume status, Will hold PATRICE inhibitor, secondary to worsening of creatinine (3) Paroxysmal atrial fibrillation: Afib with Heat Rate control Metoprolol recently discontinued due to sinus pauses on Holter monitor Continue Coumadin goal INR 2-3 (4) Status post abdominal aortic aneurysm repair: H/o AAA repair in [address] [facility] Follows with provider annually at [place] Patient and family wants further cardiac work-up/procedure to be done at [facility] Copy of the LUIS FELIPE, and medical record will be given to patient and family members for further follow-up in [place] (5) CKD (chronic kidney disease), stage III: Acute renal failure with CKD stage III Kidney function at baseline (Cr ~1.7) Creatinine worsened 1.88 ->2 Patient was given IV Lasix for pulmonary congestion noted on chest x-ray Volume status stable, no further diuretics indicated Hold PATRICE inhibitor Repeat BMP in a.m. Avoid NSAIDs, contrast studies (6) Sleep apnea: CPAP at night, pt is using his own machine (7) Diabetes mellitus type II, controlled: A1c of 6.3 in Jan 2019 Monitor BS Insulin sliding scale CODE STATUS: Full code DVT prophylaxis: On Coumadin Disposition: Expected to be discharged home tomorrow Subjective pt reports of feeling fine no complain of chest pain ( says last time he had chest discomfort was 2 days back ) no SOB , no cough no fever or chills underwent LUIS FELIPE today no symptom of discomfort post procedure finished lunch Review of Systems Review of Systems: All systems reviewed & are unremarkable except as noted in HPI & below Physical Exam Constitutional: WD/WN, vitals as above no acute distress Eyes: PERRL, conjunctivae normal, anicteric sclerae ENMT: external ear and nose normal, oropharynx normal Neck: trachea midline, no thyromegaly Respiratory: no respiratory distress and no cough Auscultation: no rales and no wheezes Cardiovascular: Rate/Rhythm: + bradycardic Heart Sounds: + murmur (systolic murmur ) Gastrointestinal (Abdomen): normal bowel sounds, soft, nontender, no hepatosplenomegaly Musculoskeletal: no cyanosis or clubbing, extremities motor strength 5/5 Skin: no rashes, warm and dry Neurologic: PERRL, EOMI, accommodation nl, no face palsy, no dysarthria Psychiatric: A+Ox3, euthymic affect Results & Data Vital Signs (Past 12 Hours) Vital Signs Temp Pulse Pulse Resp BP BP Pulse Ox 03/29/19 15:21 36.4 C L 76 20 151/82 H 95 03/29/19 14:51 36.5 C 75 18 127/84 93 03/29/19 14:33 36.3 C L 71 16 133/85 91 03/29/19 14:10 68 16 112/54 L 93 03/29/19 14:00 63 16 121/72 94 03/29/19 13:50 72 18 119/72 93 03/29/19 13:45 66 16 107/62 93 03/29/19 13:40 65 16 123/66 94 03/29/19 13:35 74 16 111/69 93 03/29/19 13:30 70 16 131/69 93 03/29/19 13:25 73 138/70 95 03/29/19 10:39 36.7 C 76 18 137/75 91 03/29/19 07:21 36.5 C 73 18 145/75 H 91 03/29/19 07:15 73
[2019-03-29] MEDS ORDERED: LEVALBUTEROL HCL 0.63 MG/3 ML NEB NEB PRN (16:48)
[2019-03-29] MEDS: ISOSORBIDE DINITRATE 20 MG TAB PO SCH (17:31)
[2019-03-29] MEDS: CETIRIZINE HCL 10 MG TABLET PO SCH (20:14)
[2019-03-30 06:25] LABS: INR 2.4 (0.9-1.1); Prothrombin Time 23.2 Seconds (9.0-12.0)
[2019-03-30 06:49] LABS: BUN Creatinine Ratio 20.2 (10-20); Creatinine Clr Calc Pharmacy 29.1 ml/min; Est GFR (African American) 28.3; Est GFR (Non-African American) 24.4; Potassium 4.3 mmol/L (3.5-5.1)
[2019-03-30] MEDS: ISOSORBIDE DINITRATE 20 MG TAB PO SCH ×2 (07:10→12:28)
[2019-03-30] MEDS: FLUTICASONE/SALMETEROL (ADVAIR) 500/50 INH 14 PUFF INH SCH ×2 (08:06→20:04)
[2019-03-30] MEDS: TIOTROPIUM BROMIDE 5 PUFF/90 MCG INH INH SCH (08:07)
[2019-03-30] MEDS: ATORVASTATIN 10 MG TAB PO SCH (08:40)
[2019-03-30] MEDS: PANTOprazole 40 MG TAB PO SCH (08:40)
[2019-03-30] MEDS: hydrOXYzine HCl 10 MG TAB PO PRN (09:30)
[2019-03-30] MEDS ORDERED: SODIUM CHLORIDE 0.9% 1000ML 1,000 ML IV SCH (10:30)
--- NOTE | 2019-03-30 10:42 | Hospitalist Progress Note ---
Date of Service March 30, 2019 Assessment & Plan (1) Mitral valve regurgitation: (2) Intermittent left-sided chest pain: -Hospital day 4 -Has not had any recurrent episodes of chest pain -Had TTE that demonstrated mitral valve regurgitation with flail anterior leaflet of mitral valve; follow-up [facility] shows prolapse of a partially flail small portion of the anterior mitral valve leaflet with associated moderate to moderately severe mitral insufficiency and the eccentric wall impinging jet. Chronic right ventricular and right atrial enlargement was noted with only mild tricuspid insufficiency and normal tricuspid valve regurgitant velocities (no pulmonary hypertension) -Started on isosorbide dinitrate -Blood cultures obtained -Cardiology following, input appreciated -Patient prefers to follow-up at [facility] (had previous AAA repair performed there 2012); copy of the procedure and images will be given to Pt prior to discharge for continued follow up (3) GI (acute kidney injury): (4) CKD (chronic kidney disease), stage III: -Acute renal failure with CKD stage III -Baseline creatinine ~ 1.7 -Creatinine trend 1.7-> 1.8-> 2.09-> 2.33 -Likely due to IV diuresis -will give gentle IVF today, monitor volume status closely secondary to valvular disease -Lisinopril on hold; per discussion with cardiology, will discontinue indefinitely (5) Acute on chronic diastolic CHF (congestive heart failure): -Echo showed grade II diastolic dysfunction and EF 50 to 55% -On presentation, patient appeared to be volume overloaded with pulmonary edema on CXR -Received Lasix 20 mg IV on 03/27 and 40 mg ED on 03/28 -Patient (-)7 kg since admission -Now euvolemic -Holding on additional Lasix secondary to elevated creatinine (6) Paroxysmal atrial fibrillation: -Rate currently controlled -Metoprolol recently discontinued as an outpatient secondary to bradycardia noted on Holter monitor -Anticoagulated on Coumadin, INR 2.4 (7) Sleep apnea: -CPAP at night, pt is using his own machine (8) Diabetes mellitus type II, controlled: -Diet controlled -Hgb A1c 6.3 01/2019 -Glucose controlled (9) DVT prophylaxis: -On Coumadin, INR 2.4 Supervising Physician Co-Signing Physician Notes ATTENDING ADDENDUM : pt seen and examined , care co-ordinated with Carissa WILCOX pt reports of uneventful night no complain of SOB , no cough , had episode of chest discomfort last night for few minutes ,resolved spotaneouly PHYSICAL EXAM ; -GENERAL: No sign of distress,very pleasant elderly gentleman HEENT: Sclera nonicteric, Normal oral mucosa, neck: No JVD, no thyromegaly, trachea midline Lungs: Clear to auscultate, no wheeze or rales Cardiovascular: Regular S1 and S2, no murmur or gallop, no JVD, no lower extremity edema Abdomen: Soft, nontender, bowel sounds active, no hepatosplenomegaly Extremities: No rash or deformity, normal joint, Neuro: No focal neurological deficit, no dysarthria, no facial droop Psych: Alert awake oriented x3: Euthymic Skin: No rash ASSESSMENT AND PLAN : Acute on chronic diastolic CHF due to severe valvular heart disease , diastolic heart failure with preserved LV EF Initial CXR with cardiomegaly and pulmonary edema pattern. Repeated CXR have shown continued interval improvement in the previous pulmonary edema. pt was treated with IV Lasix -20 mg IV on admission repeat 40 mg iv on 03/28/19 -Home diuretics : Lasix 20 mg 3x week /Lisinopril 10 mg daily vol status stable diuretics and ACEI kept on hold for GI ordered Gentle IV fluid repeat BMP in AM GI ON CKD STAGE 3 : Baseline creatinine ~ 1.7 -Creatinine continues to worsen 1.7-> 1.8-> 2.09-> 2.33 possible due to diuretics Lasix and ACEI kept on hold gentle IV fluid as outlined above avoid NSAID contrast studies please refer to further documentation by Carissa WILCOX for discussion of other chronic issues Subjective Patient seen and examined. Sitting up in the chair, no acute distress. Reports feeling improved, offers no complaints. Continues to have good urine output. Denies chest pain shortness of breath. No lightheadedness or dizziness. Denies abdominal pain and nausea. Physical Exam Constitutional: no acute distress Sitting up in the chair Respiratory: normal respiratory effort, lungs clear to auscultation Cardiovascular: Rate/Rhythm: regular rate and + irregularly irregular Vessels: normal peripheral pulses Extremities: no edema Gastrointestinal (Abdomen): Inspection/Auscultation: normal bowel sounds Percussion/Palpation: abdomen soft; abdomen nontender Psychiatric: Orientation: alert and oriented x 3 Results & Data Vital Signs (Past 12 Hours) Vital Signs Temp Pulse Pulse Resp BP BP Pulse Ox 03/30/19 07:15 66 03/30/19 07:04 36.3 C L 76 16 116/55 L 91 03/30/19 02:50 36.8 C 78 19 117/71 91 03/29/19 23:39 36.2 C L 77 19 109/53 L 90 Laboratory Results [facility] 03/29/19 03/30/19 06:11 05:40 Sodium 138 138 Potassium 4.2 4.3 Chloride 106 105 Carbon Dioxide 23 25 BUN 42 H 47 H Creatinine 2.09 H 2.33 H Glucose 117 H 101 H Calcium 9.1 9.0
[2019-03-30] MEDS: CHOLECALCIFEROL 1,000 UNITS TAB PO SCH (12:27)
--- NOTE | 2019-03-30 14:51 | Cardiology Progress Note ---
Date of Service March 30, 2019 Assessment & Plan (1) Intermittent left-sided chest pain: Chest discomfort and shortness of breath appear atypical in nature that they occur predominantly at night and not not in relationship to exertion. No EKG changes suggestive of ischemia and troponins are nondetectable. Symptoms are suspicious for orthopnea with exam reflecting jugular venous distention. Echocardiogram reflects possible partial flail anterior mitral valve leaflet with at least moderate mitral insufficiency Plan: No signs of myocardial ischemia. Echocardiogram and transesophageal echocardiogram demonstrate partially flail A2 segment of the anterior mitral valve leaflet. There is moderately severe mitral insufficiency but no evidence of acute pulmonary hypertension or left atrial dilatation. Acuity is uncertain however findings suggest possible recent event given left atrial size normal tricuspid valve regurgitant loss Patient currently without heart failure. Blood pressures trending slightly lower will reduce isosorbide. I agree with gentle hydration today and reassess renal function in a.m. Discussed above findings of valvular issues with patient and family. Would recommend tertiary care cardiovascular/cardiovascular surgery evaluation. Family will arrange follow-up with physicians at [facility] Copy of echo and transesophageal echocardiogram provided to the patient (2) Paroxysmal atrial fibrillation: Now persistent with past documented tachybradycardia syndrome by Holter in 2018 multiple pauses greater than 2.5 seconds but no profound pauses. Patient beta-chuckie intolerant, would avoid AV blocking medications (3) Congestive heart failure: As above (4) Mitral insufficiency: Heavily calcified mitral valve annulus with partially flail anterior mitral valve leaflet at least moderate mitral insufficiency. (5) CKD (chronic kidney disease), stage III: (6) Abdominal aortic aneurysm: (7) GI (acute kidney injury): No heart failure currently on examination and agree with hydration. Will reduce isosorbide to 10 mg twice daily continue without lisinopril Subjective Patient seen and examined, chart, medications, telemetry reviewed. Patient no chest pain or discomfort no orthopnea or worsening peripheral edema. No dizziness or lightheadedness. Slept well last night without breathing issue. No orthopnea Physical Exam Constitutional: well developed and + obese; no acute distress ENMT: Mallampati Class: II Neck: trachea midline, no thyromegaly + thick neck Respiratory: no respiratory distress Auscultation: + wheezes (Few) Cardiovascular: Rate/Rhythm: + irregularly irregular Heart Sounds: normal S1, normal S2 and + murmur (Grade 3/6 holosystolic murmur throughout the precordium greatest at the apex); no gallop Palpation: normal PMI Vessels: normal carotid upstroke and radial pulses present; no JVD and no carotid bruit Extremities: no edema (Trace) Gastrointestinal (Abdomen): normal bowel sounds, soft, nontender, no hepatosplenomegaly Musculoskeletal: no cyanosis or clubbing, extremities motor strength 5/5 Skin: no rashes, warm and dry Neurologic: moves all extremities; no focal motor deficits Psychiatric: A+Ox3, euthymic affect Results & Data Vital Signs (Past 12 Hours) Vital Signs Temp Pulse Pulse Resp BP Pulse Ox 03/30/19 11:18 36.4 C L 67 16 95/48 L 91 03/30/19 07:15 66 03/30/19 07:04 36.3 C L 76 16 116/55 L 91 Laboratory Results Laboratory Results - last 24 hr 03/29/19 03/29/19 03/30/19 16:14 20:02 05:40 PT 23.2 H INR 2.4 H Sodium Potassium Chloride Carbon Dioxide Anion Gap BUN Creatinine Est Cr Clr Drug Dosing Est GFR ( Amer) Est GFR (Non-Af Amer) BUN/Creatinine Ratio Glucose POC Glucose 130 H 118 H Calcium 03/30/19 03/30/19 03/30/19 05:40 07:27 11:48 PT INR Sodium 138 Potassium 4.3 Chloride 105 Carbon Dioxide 25 Anion Gap 8.0 BUN 47 H Creatinine 2.33 H Est Cr Clr Drug Dosing 29.1 Est GFR ( Amer) 28.3 Est GFR (Non-Af Amer) 24.4 BUN/Creatinine Ratio 20.2 H Glucose 101 H POC Glucose 113 H 114 H Calcium 9.0
[2019-03-30] MEDS: WARFARIN SOD 5 MG TAB PO SCH (16:15)
[2019-03-30] MEDS ORDERED: ISOSORBIDE DINITRATE 10 MG TAB PO SCH (19:00)
[2019-03-30] MEDS: CETIRIZINE HCL 10 MG TABLET PO SCH (20:04)
[2019-03-31 07:29] LABS: INR 3.1 (0.9-1.1); Prothrombin Time 29.2 Seconds (9.0-12.0)
[2019-03-31 08:00] LABS: BUN Creatinine Ratio 21.5 (10-20); Calcium 9.1 mg/dl (8.5-10.1); Creatinine Clr Calc Pharmacy 28.9 ml/min; Est GFR (Non-African American) 24.1; Potassium 4.6 mmol/L (3.5-5.1)
[2019-03-31] MEDS: ISOSORBIDE DINITRATE 10 MG TAB PO SCH ×2 (08:52→11:41)
[2019-03-31] MEDS: TIOTROPIUM BROMIDE 5 PUFF/90 MCG INH INH SCH (08:53)
[2019-03-31] MEDS: PANTOprazole 40 MG TAB PO SCH (08:53)
[2019-03-31] MEDS: FLUTICASONE/SALMETEROL (ADVAIR) 500/50 INH 14 PUFF INH SCH (08:53)
[2019-03-31] MEDS: ATORVASTATIN 10 MG TAB PO SCH (08:53)
[2019-03-31] MEDS: hydrOXYzine HCl 10 MG TAB PO PRN (08:54)
[2019-03-31] MEDS: CHOLECALCIFEROL 1,000 UNITS TAB PO SCH (08:54)
--- NOTE | 2019-03-31 09:09 | Hospitalist Progress Note ---
Date of Service March 31, 2019 Assessment & Plan (1) Mitral valve regurgitation: (2) Intermittent left-sided chest pain: -Hospital day 5 -Has not had any recurrent episodes of chest pain -Had TTE that demonstrated mitral valve regurgitation with flail anterior leaflet of mitral valve; follow-up [facility] shows prolapse of a partially flail small portion of the anterior mitral valve leaflet with associated moderate to moderately severe mitral insufficiency and the eccentric wall impinging jet. Chronic right ventricular and right atrial enlargement was noted with only mild tricuspid insufficiency and normal tricuspid valve regurgitant velocities (no pulmonary hypertension) -Started on isosorbide dinitrate -Blood cultures obtained 03/30 -Cardiology following, input appreciated -Patient prefers to follow-up at [facility] (had previous AAA repair performed there 2012); copy of the procedure and images will be given to patient for continued follow-up -Likely discharge today, does have some crackles and wheezing on exam however patient asymptomatic and reports is at baseline. Saturating well on room air. Will check CXR and give nebulizer treatment. -Renal function discussed below (3) GI (acute kidney injury): (4) CKD (chronic kidney disease), stage III: -Acute renal failure with CKD stage III -Baseline creatinine ~ 1.7 -Creatinine trend 1.7-> 1.8-> 2.09-> 2.33-> 2.35 -Likely due to IV diuresis -Received 1 L gentle IVF yesterday however no improvement in renal function; patient appears to be euvolemic on exam, does have some mild wheezing and crackles however has underlying lung disease -Lisinopril on hold; per discussion with cardiology, will discontinue indefinitely -Lasix will be used on a as needed basis -Discussed with nephrology, Dr. Fuentes - will have patient get labs early next week and have close follow-up in the nephro clinic (5) Acute on chronic diastolic CHF (congestive heart failure): -Echo showed grade II diastolic dysfunction and EF 50 to 55% -On presentation, patient appeared to be volume overloaded with pulmonary edema on CXR -Received Lasix 20 mg IV on 03/27 and 40 mg ED on 03/28 -Patient ~ (-)7 kg since admission -Now euvolemic -Holding on scheduled Lasix secondary to elevated creatinine; patient instructed on as needed Lasix use (6) Paroxysmal atrial fibrillation: -Rate currently controlled -Metoprolol recently discontinued as an outpatient secondary to bradycardia noted on Holter monitor -Anticoagulated on Coumadin, INR 3.1 (7) Sleep apnea: -CPAP at night, pt is using his own machine (8) Diabetes mellitus type II, controlled: -Diet controlled -Hgb A1c 6.3 01/2019 -Glucose controlled (9) DVT prophylaxis: -On Coumadin, INR 3.1 Supervising Physician Co-Signing Physician Notes ATTENDING ADDENDUM : pt seen and examined , care co-ordinated with Carissa WILCOX pt reports of uneventful night no complain of SOB , no cough , stable to be discharged home today PHYSICAL EXAM ; -GENERAL: No sign of distress,very pleasant elderly gentleman HEENT: Sclera nonicteric, Normal oral mucosa, neck: No JVD, no thyromegaly, trachea midline Lungs: Clear to auscultate, no wheeze or rales Cardiovascular: Regular S1 and S2, no murmur or gallop, no JVD, no lower extremity edema Abdomen: Soft, nontender, bowel sounds active, no hepatosplenomegaly Extremities: No rash or deformity, normal joint, Neuro: No focal neurological deficit, no dysarthria, no facial droop Psych: Alert awake oriented x3: Euthymic Skin: No rash ASSESSMENT AND PLAN : Acute on chronic diastolic CHF due to severe valvular heart disease , diastolic heart failure with preserved LV EF Initial CXR with cardiomegaly and pulmonary edema pattern. Repeated CXR have shown continued interval improvement in the previous pulmonary edema. pt was treated with IV Lasix -20 mg IV on admission repeat 40 mg iv on 03/28/19 -Home diuretics : Lasix 20 mg 3x week /Lisinopril 10 mg daily vol status stable diuretics and ACEI kept on hold for GI - given gentle IVF repeat BMP shows unchanged renal function pt remains stable from CHF stand point d/w Cardiology Lisinopril on hold; per discussion with cardiology, will discontinue indefinitely pt will discharged on as needed Lasix GI ON CKD STAGE 3 : Baseline creatinine ~ 1.7 -Creatinine remains elevated 1.7-> 1.8-> 2.09-> 2.33-> 2.35 Lasix and ACEI has been kept on hold gentle IV fluid as outlined above avoid NSAID contrast studies -Discussed with nephrology, Dr. Fuentes - will have patient get labs early next week and have close follow-up in the nephro clinic stable to be discharged home today please refer to further documentation by Carissa WILCOX for discussion of other chronic issues Vilma Araujo MD Subjective Patient seen and examined. Resting in bed, no acute distress. Offers no complaints, reports feeling well this morning Denies chest pain. Reports exertional shortness of breath is at baseline. No abdominal pain or nausea. Denies lightheadedness and dizziness. Physical Exam Constitutional: no acute distress Resting in bed Respiratory: normal respiratory effort; no respiratory distress Auscultation: + crackles (Bilateral bases) and + wheezes (Scattered, expiratory) Cardiovascular: Rate/Rhythm: regular rate and + irregularly irregular Vessels: normal peripheral pulses Extremities: no edema Gastrointestinal (Abdomen): Percussion/Palpation: abdomen soft; abdomen nontender Psychiatric: Orientation: alert and oriented x 3 Results & Data Vital Signs (Past 12 Hours) Vital Signs Temp Pulse Pulse Resp BP Pulse Ox 03/31/19 08:00 62 03/31/19 07:15 36.6 C 82 20 123/56 L 93 03/31/19 03:14 36.5 C 75 18 120/64 91 03/30/19 23:47 63 03/30/19 23:09 36.2 C L 71 19 121/63 93 Laboratory Results [facility] 03/31/19 06:38 Sodium 139 Potassium 4.6 Chloride 107 Carbon Dioxide 23 BUN 51 H Creatinine 2.35 H Glucose 94 Calcium 9.1
--- NOTE | 2019-03-31 09:17 | XRay Report ---
XR chest 1V portable CLINICAL HISTORY: wheezing COMPARISON STUDY: Chest CT March 27, 2019. Chest radiograph March 29, 2019. FINDINGS: Cardiomegaly is noted. There is no pneumothorax. No pleural effusion is identified. Mild pu lmonary edema is unchanged. This remains improved since exam of March 27, 2019. Mild left basilar opacity. IMPRESSION: 1. Mild pulmonary edema, improved since exam of March 27, 2019. 2. Mild left basilar opacity. Electronically signed by: Frank Seals M.D. 03/31/2019 9:14 AM
--- NOTE | 2019-03-31 09:45 | Cardiology Progress Note ---
Date of Service March 31, 2019 Assessment & Plan (1) Intermittent left-sided chest pain: Chest discomfort and shortness of breath appear atypical in nature that they occur predominantly at night and not not in relationship to exertion. No EKG changes suggestive of ischemia and troponins are nondetectable. Symptoms are suspicious for orthopnea with exam reflecting jugular venous distention. Echocardiogram reflects possible partial flail anterior mitral valve leaflet with at least moderate mitral insufficiency Plan: No signs of myocardial ischemia. Echocardiogram and transesophageal echocardiogram demonstrate partially flail A2 segment of the anterior mitral valve leaflet. There is moderately severe mitral insufficiency but no evidence of acute pulmonary hypertension or left atrial dilatation. Acuity is uncertain however findings suggest possible recent event given left atrial size normal tricuspid valve regurgitant loss Discussed above findings of valvular issues with patient and family. Would recommend tertiary care cardiovascular/cardiovascular surgery evaluation. Family will arrange follow-up with physicians at [facility] Copy of echo and transesophageal echocardiogram provided to the patient Exam does not suggest worsening heart failure currently though with diffuse wheezing x-ray demonstrates clinical improvement from pulmonary edema status Agree with current plans (2) Paroxysmal atrial fibrillation: Now persistent with past documented tachybradycardia syndrome by Holter in 2018 multiple pauses greater than 2.5 seconds but no profound pauses. Patient beta-chuckie intolerant, would avoid AV blocking medications (3) Congestive heart failure: As above (4) Mitral insufficiency: Heavily calcified mitral valve annulus with partially flail anterior mitral valve leaflet at least moderate mitral insufficiency. (5) CKD (chronic kidney disease), stage III: (6) Abdominal aortic aneurysm: (7) GI (acute kidney injury): No heart failure currently on examination and agree with hydration. Will reduce isosorbide to 10 mg twice daily continue without lisinopril Subjective Patient seen and examined, chart, medications, telemetry reviewed. No chest pains or discomfort no noted worsening dyspnea. No dizziness or lightheadedness He is somewhat more wheezy this morning. Physical Exam Constitutional: well developed and + obese; no acute distress ENMT: Mallampati Class: II Neck: trachea midline, no thyromegaly + thick neck Respiratory: no respiratory distress Auscultation: + wheezes (More pronounced left greater than right) Cardiovascular: Rate/Rhythm: + irregularly irregular Heart Sounds: normal S1, normal S2 and + murmur (Grade 3/6 holosystolic murmur throughout the precordium greatest at the apex); no gallop Palpation: normal PMI Vessels: normal carotid upstroke and radial pulses present; no JVD and no carotid bruit Extremities: no edema (Trace) Gastrointestinal (Abdomen): normal bowel sounds, soft, nontender, no hepatosp lenomegaly Musculoskeletal: no cyanosis or clubbing, extremities motor strength 5/5 Skin: no rashes, warm and dry Neurologic: moves all extremities; no focal motor deficits Psychiatric: A+Ox3, euthymic affect Results & Data Vital Signs (Past 12 Hours) Vital Signs Temp Pulse Pulse Resp BP Pulse Ox 03/31/19 09:25 81 18 93 03/31/19 08:00 62 03/31/19 07:15 36.6 C 82 20 123/56 L 93 03/31/19 03:14 36.5 C 75 18 120/64 91 03/30/19 23:47 63 03/30/19 23:09 36.2 C L 71 19 121/63 93 Laboratory Results Laboratory Results - last 24 hr 03/30/19 03/30/19 03/30/19 07:27 11:48 16:29 PT INR Sodium Potassium Chloride Carbon Dioxide Anion Gap BUN Creatinine Est Cr Clr Drug Dosing Est GFR ( Amer) Est GFR (Non-Af Amer) BUN/Creatinine Ratio Glucose POC Glucose 113 H 114 H 107 H Calcium 03/30/19 03/31/19 03/31/19 20:33 06:38 06:38 PT 29.2 H INR 3.1 H Sodium 139 Potassium 4.6 Chloride 107 Carbon Dioxide 23 Anion Gap 9.0 BUN 51 H Creatinine 2.35 H Est Cr Clr Drug Dosing 28.9 Est GFR ( Amer) 28.0 Est GFR (Non-Af Amer) 24.1 BUN/Creatinine Ratio 21.5 H Glucose 94 POC Glucose 110 H Calcium 9.1 03/31/19 07:25 PT INR Sodium Potassium Chloride Carbon Dioxide Anion Gap BUN Creatinine Est Cr Clr Drug Dosing Est GFR ( Amer) Est GFR (Non-Af Amer) BUN/Creatinine Ratio Glucose POC Glucose 98 Calcium Diagnostic Findings XR chest 1V portable 03/30/2019 CLINICAL HISTORY: wheezing COMPARISON STUDY: Chest CT March 27, 2019. Chest radiograph March 29, 2019. FINDINGS: Cardiomegaly is noted. There is no pneumothorax. No pleural effusion is identified. Mild pulmonary edema is unchanged. This remains improved since exam of March 27, 2019. Mild left basilar opacity. IMPRESSION: 1. Mild pulmonary edema, improved since exam of March 27, 2019. 2. Mild left basilar opacity.
--- NOTE | 2019-03-31 10:54 | Discharge Summary ---
Date of Service March 31, 2019 Admission HPI Per Admitting Provider This is a 88yo M with a PMH of DM II, CKD III, diastolic HF, paroxysmal A Fib on coumadin, h/o AAA repair in 2012 and other medical problems listed below who presents with intermittent chest pain. Patient endorses long-standing history of intermittent chest pain for the past 3 years, mainly awakening him when sleeping at night. Describes pain as left-sided with radiation to left arm. Denies any associated diaphoresis, shortness of breath, nausea or vomiting. Episodes usually last about 10 minutes before subsiding and usually resolves after patient takes Tums. Does not experience chest pain with exertion or during the day generally. For the past 3 nights, patient has been waking up with similar dull aching chest pain on the left side but it is not resolved after taking Tums. Family brought patient in for further evaluation. Of note, patient lives alone. Follows with Dr. Sherman for history of paroxysmal A. fib on Coumadin and mixed systolic and diastolic CHF. At clinic on March 09, patient was euvolemic and feeling well. Beta-chuckie was discontinued due to multiple 2-second pauses on Holter monitor but no other changes to medication were made at this time. Most recent TTE from November 2015 with mildly dilated LV chamber with concentric LVH, EF of 57%, grade II diastolic dysfunction, mild aortic valve sclerosis. Currently, patient is chest pain-free. Endorses longstanding non-productive cough. Denies any fever, chills, lightheadedness, visual changes, palpitations, shortness of breath, nausea, vomiting, abdominal pain, dysuria, diarrhea constipation. Patient manages medications by himself. Admission Exam Per Admitting Provider General Appearance: WD/WN, vitals as above, NAD, sitting up in bed, pleasant, conversing easily Head: normocephalic, atraumatic Eyes: normal inspection, PERRL, conjunctivae normal, anicteric sclerae ENT: hard of hearing, external ear and nose normal, oropharynx normal Neck: trachea midline, no thyromegaly normal visual inspection Respiratory: normal respiratory effort, scattered expiratory wheezes, no rales or rhonchi. Normal insp/exp effort, no accessory muscle use Cardiovascular: irregular rate & rhythm, systolic murmur, normal peripheral pulses, no BLE edema. Vessels: no JVD or carotid bruit Chest: normal inspection of chest Abdomen/GI: normal bowel sounds, soft, nontender, no hepatosplenomegaly Extremities/Musculoskelatal: no cyanosis or clubbing, extremities motor strength 5/5 Neurologic: PERRL, EOMI, accommodation nl, no face palsy, no dysarthria CN's II-XI intact bilaterally and moves all extremities Psychiatric: A+Ox3, euthymic affect Skin: no rashes, normal color, warm/dry Principal Diagnosis Acute on Chronic Diastolic CHF Mitral Valve Regurgitation; Partially Flail Mitral Valve Leaflet Acute on Chronic CKD Discharge Exam Physical Exam Constitutional: no acute distress Resting in bed Respiratory: normal respiratory effort; no respiratory distress Auscultation: + crackles (Bilateral bases) and + wheezes (Scattered, expiratory) Cardiovascular: Rate/Rhythm: regular rate and + irregularly irregular Vessels: normal peripheral pulses Extremities: no edema Gastrointestinal (Abdomen): Percussion/Palpation: abdomen soft; abdomen nontender Psychiatric: Orientation: alert and oriented x 3 Discharge Data Allergies Allergy/AdvReac Type Severity Reaction Status Date / Time aspirin Allergy Intermediate HIVES Verified 03/27/19 09:58 levofloxacin [From Levaquin] AdvReac Severe Delirium Verified 03/27/19 17:26 oxycodone AdvReac Mild INTOLERATE Verified 03/27/19 09:58 TO PERCOCET OR OXYCONTIN Consultations Dr. Preston, cardiology Procedures Performed LUIS FELIPE 03/29 Ordered Studies Echocardiogram CXR Hospital Course (1) Mitral valve regurgitation: (2) Intermittent left-sided chest pain: -Presented with intermittent chest pain -Had TTE that demonstrated mitral valve regurgitation with flail anterior leaflet of mitral valve; follow-up LUIS FELIPE shows prolapse of a partially flail small portion of the anterior mitral valve leaflet with associated moderate to moderately severe mitral insufficiency and the eccentric wall impinging jet. Chronic right ventricular and right atrial enlargement was noted with only mild tricuspid insufficiency and normal tricuspid valve regurgitant velocities (no pulmonary hypertension) -Started on isosorbide dinitrate -Blood cultures obtained 03/30 -Patient prefers to follow-up at [facility] (had previous AAA repair performed there 2012); copy of the procedure and images will be given to patient for continued follow-up (3) GI (acute kidney injury): (4) CKD (chronic kidney disease), stage III: -Acute renal failure with CKD stage III -Baseline creatinine ~ 1.7 -Creatinine trend 1.7-> 1.8-> 2.09-> 2.33-> 2.35 -Likely due to IV diuresis -Received 1 L gentle IVF yesterday however no improvement in renal function; patient appears to be euvolemic on exam, does have some mild wheezing and crackles however has underlying lung disease -Lisinopril on hold; per discussion with cardiology, will discontinue inde finitely -Lasix will be used on a as needed basis -Discussed with nephrology, Dr. Fuentes - will have patient get labs early next week and have close follow-up in the nephro clinic (5) Acute on chronic diastolic CHF (congestive heart failure): -Echo showed grade II diastolic dysfunction and EF 50 to 55% -On presentation, patient appeared to be volume overloaded with pulmonary edema on CXR -Received Lasix 20 mg IV on 03/27 and 40 mg ED on 03/28 -Patient ~ (-)7 kg since admission -Now euvolemic -Holding on scheduled Lasix secondary to elevated creatinine; patient instructed on as needed Lasix use (6) Paroxysmal atrial fibrillation: -Rate currently controlled -Metoprolol recently discontinued as an outpatient secondary to bradycardia noted on Holter monitor -Anticoagulated on Coumadin, INR 3.1 (7) Diabetes mellitus type II, controlled: -Diet controlled -Hgb A1c 6.3 01/2019 -Glucose controlled Total Time Total Time Spent Total Time Spent (In Minutes): 45 Discharge Plan Discharge Items Patient Disposition: Home - Self-Care Reason For Visit: CHEST PAIN Discharge Diagnosis: MITRAL VALVE DISEASE HEART FAILURE CHRONIC KIDNEY DISEASE STAGE 3 Activity: Resume your previous activity Non-emergency contact: Primary Care Provider Call non-emergency contact if: you have any medication questions Follow-up/Referrals: Steve Gold [Physician Dope Mixer] - 04/05/19 10:45 am (covering for Dr. Preston) Sandra Hodge MD [Physician] - 04/03/19 12:45 pm (covering for Dr. Wheeler) Osmel Bahena MD [Physician] - 04/11/19 1:45 am (covering for Dr. Fuentes) Diet: Carb Consistent or DM2, Heart Healthy and Low Potassium (2gm) Ambulatory Orders: Basic Metabolic Panel (Routine) Timeframe: [id number] Location: Determined by Patient Ordered By: Carissa Fountain Attending Provider Instructions: FOLLOW UP WITH [facility] FOR EVALUATION OF YOUR MITRAL VALVE - DISCS WERE GIVEN TO YOU FOR FOLLOW UP, TAKE THESE TO YOUR APPOINTMENT MAKE SURE TO WEIGH YOURSELF EVERYDAY - IF YOU GAIN MORE THAN 3 POUNDS, TAKE LASIX 40MG ONCE AND CALL YOUR DOCTOR FOLLOW LOW SALT DIET LAB WORK : BASIC METABOLIC PANEL ON TUESDAY 04/03 COUMADIN CLINIC WILL BE IN CONTACT WITH YOU REGARDING BLOODWORK AND COUMADIN DOSING DO NOT TAKE ALEVE, ADVIL, IBUPROFEN , MOTRIN , MOBIC , NAPROXEN, HIGH DOSE ASPIRIN -AVOID OVER THE COUNTER PAIN MEDICATIONS BELONGING TO GROUP OF DRUGS CALLED NSAID ( NON STEROIDAL ANTI INFLAMMATORY DRUGS ) - WILL CAUSE WORSENING OF YOU KIDNEY FUNCTION MEDICATION CHANGES: STOP LISINOPRIL START TAKING ISOSORBIDE DINITRATE 10MG TWICE DAILY LASIX IS TO BE USED NEEDED FOR A 3 POUND WEIGHT GAIN ONLY Call your Primary Care doctor if any of the following symptoms or problems start or get worse: * Shortness of breath or difficulty breathing * Wake up at night short of breath * Chest pain * Cough * Swelling of your hands, feet, or legs * More fatigued or tired with your normal activity * Palpitations - sudden fast heart beats WEIGHT * Weigh yourself every morning after using the bathroom. * Use the same scale. * Wear the same amount of clothing. * Write your weight down on a chart. * Call your Primary Care doctor if you gain more than 2-3 pounds in 1-2 days. MEDICATIONS * Use this discharge instruction sheet for medication instructions. * Take your medications at the time your doctor ordered. * Do not skip a dose of your medicines. * If you miss a dose of medicine, take it as soon as possible, but DO NOT DOUBLE A DOSE. * Read your medicine information when you get home. * Know all of the side effects of your medicine. If in doubt, ask your pharmacist * Call your Primary Care doctor's office if you have any side effects. * Be sure all of your doctors know what medicine and herbs you take (including cold, flu, and herbal medicine). Take the following with you to your follow-up doctor appointments: * Weight Chart * Medication List * List of questions Do not drink excessive alcohol, beer or wine. Pending Studies at Discharge: Yes Studies:: BASIC METABOLIC PANEL ON 04/03 Blood culture results Stand-Alone Forms: My [facility], Smoking Cessation Medications and DC Order Prescriptions: New isosorbide dinitrate 10 mg Tablet 10 mg PO BID@0700,1200 Qty: 30 RF: 0 furosemide [Lasix] 40 mg tablet 40 mg PO DAILY PRN (Reason: weight gain) Qty: 10 RF: 0 Continued atorvastatin 10 mg tablet 10 mg PO QAM RF: 0 warfarin 5 mg tablet 5 mg PO SUTUWETHSA@1600 RF: 0 warfarin 5 mg tablet 2.5 mg PO MOFR@1600 RF: 0 fluticasone propion-salmeterol [Advair Diskus] 500-50 mcg/dose blister with device 1 inh inhalation BID RF: 0 Spiriva with HandiHaler 18 mcg capsule, w/inhalation device 1 cap inhalation QAM RF: 0 cetirizine 5 mg Tablet 5 mg PO HS RF: 0 albuterol sulfate [Ventolin HFA] 90 mcg/actuation Hfa Aerosol Inhaler 1 puff INHALATION Q6H PRN (Reason: Shortness Of Breath) RF: 0 hydroxyzine HCl 10 mg Tablet 10 mg PO QID PRN (Reason: Itching) RF: 0 cholecalciferol (vitamin D3) 5,000 unit Tablet 5,000 unit PO DAILY RF: 0 Discontinued lisinopril 10 mg tablet 10 mg PO QAM RF: 0 furosemide 20 mg tablet 20 mg PO MOWEFR RF: 0 Discharge Orders: Discharge Order (Routine); Ordered 03/31/19 Ordered By: Vilma Ivy/Other Patient Handouts: Diet Low Salt Dc Admission Data Admit Date/Time: 03/29/19 15:53 Attending Provider: Vilma Araujo Admit Provider: Chicho Erickson Primary Care Provider: Felix Wheeler Other Providers: Chicho Erickson ; Kingsley Preston Other Interventions: Discharge Summary Assessment (RN) Last Done: 03/31/19 11:09 DC Date/Time DO NOT enter until pt leaves facility: 03/31/19 12:10
== END 2019-03-31 12:10 | disposition home or self-care (01) | DRG 306 ==
LOC: 2W 08:30 → ED 08:30 → SUATTDRO 12:13 → 2W 12:58

== ENCOUNTER 2019-11-29 00:04 | Observation (INO) ==
[2019-11-29] MEDS ORDERED: FUROSEMIDE 40 MG/4 ML VIAL IV STA (00:59)
[2019-11-29 01:24] LABS: Basophils # (auto) 0.02 K/uL (0-0.2); Basophils % (auto) 0.3 %; Eosinophils # (auto) 0.12 K/uL (0-0.5); Eosinophils % (auto) 1.6 %; Hematocrit (blood only) 39.4 % (42-52); Hemoglobin 12.8 g/dL (14.0-18.0); Immature Granulocytes # (auto) 0.02 K/uL (0.00-0.02); Immature Granulocytes % (auto) 0.3 %; Lymphocytes # (auto) 1.06 K/uL (1.2-3.4); Lymphocytes % (auto) 14.3 %; Mean Corpuscular Hgb Conc 32.5 g/dL (32-36); Mean Corpuscular Volume 89.1 fL (80-100); Mean Platelet Volume 11.6 fL (7.4-10.4); Monocytes # (auto) 0.52 K/uL (0.11-0.59); Neutrophils # (auto) 5.68 K/uL (1.4-6.5); Neutrophils % (auto) 76.5 %; Platelet Count 145 K/uL (130-400); RDW Coefficient of Variation 18.2 % (11.5-14.5); RDW Standard Deviation 59.4 fL (36.4-46.3); Red Blood Count 4.42 M/uL (4.7-6.1); White Blood Count 7.42 K/uL (4.8-10.8)
[2019-11-29 01:30] LABS: INR 2.1 (0.9-1.1); Partial Thromboplastin Ratio 1.4; Partial Thromboplastin Time 37.7 Seconds (21.0-31.0); Prothrombin Time 21.4 Seconds (9.0-12.0)
[2019-11-29 01:33] LABS: Appearance Urine Cloudy (Clear); Bacteria Urine Automated Negative (Negative); Blood Urine 1+ (Negative); Color Urine Dark Yellow; Glucose Urine UA Negative (Negative); Ketones Urine Trace (Negative); Leukocyte Esterase Urine Negative (Negative); Nitrite Urine Negative (Negative); Protein Urine 2+ (Negative); RBC Urine Automated 0-4 /hpf (0-4); Specific Gravity Urine 1.025 (1.000-1.030); Urobilinogen Urine Negative (Negative)
[2019-11-29 01:34] LABS: Albumin Level 2.7 gm/dl (3.4-5.0); BUN Creatinine Ratio 19.1 (10-20); Calcium 8.7 mg/dl (8.5-10.1); Creatinine Clr Calc Pharmacy 37.4 ml/min; Est GFR (African American) 38.6; Est GFR (Non-African American) 33.3; Potassium 4.2 mmol/L (3.5-5.1)
[2019-11-29 01:36] LABS: Bilirubin Urine 1+ (Negative)
[2019-11-29 01:38] LABS: Ictotest Urine Positive (Negative)
[2019-11-29 01:39] LABS: Albumin Globulin Ratio 0.5 (0.9-2); Bilirubin,Total 1.7 mg/dl (0.2-1); Globulin 5.2 gm/dl (2.5-4.0); Total Protein 7.9 gm/dl (6.4-8.2); Troponin I 0.038 ng/ml (0-0.045)
[2019-11-29] MEDS ORDERED: LEVALBUTEROL HCL 0.63 MG/3 ML NEB NEB STA (03:14)
[2019-11-29] MEDS ORDERED: XOPENEX/ATROVENT 0.63mg/0.5MG NEB COMBO NEB PRN (04:15)
[2019-11-29] MEDS ORDERED: ACETAMINOPHEN 325 MG TAB PO PRN (04:15)
[2019-11-29] MEDS ORDERED: ALBUTEROL HFA 8 GM INHALER INH PRN (04:15)
[2019-11-29] MEDS ORDERED: POLYETHYLENE (MIRALAX) 17 GM PACK PO PRN (04:15)
[2019-11-29] MEDS ORDERED: ONDANSETRON INJ 2 MG/ML 2 ML VIAL IV PRN (04:15)
[2019-11-29] MEDS ORDERED: NITROGLYCERIN SL 0.4 MG/TAB TAB SL PRN (04:15)
[2019-11-29] MEDS ORDERED: LEVALBUTEROL HCL 0.63 MG/3 ML NEB NEB PRN (04:15)
[2019-11-29] MEDS ORDERED: hydrOXYzine HCl 10 MG TAB PO PRN (04:15)
[2019-11-29] MEDS ORDERED: IPRATROPIUM BROMIDE NEB SOLN 0.02% 2.5 ML VIAL INH PRN (04:15)
--- NOTE | 2019-11-29 04:19 | Emergency Department Note ---
History of Present Illness General Chief complaint: Respiratory Problems Stated complaint: HAVING TROUBLE BREATHING Time Seen by Provider: 11/29/19 00:22 Source: patient and RN notes reviewed Mode of arrival: ambulatory Limitations: no limitations History of Present Illness Provider complaint: Shortness of breath This patient is an 89-year-old male who presents to the emergency department with complaints of shortness of breath. Patient states he developed some chest pressure and difficulty breathing when attempting to lie down to sleep tonight. He states he has a history of a "mitral valve clip" and does have a history of atrial fibrillation. The patient is anticoagulated with Coumadin. His son states in July he fell off of a lawn chair and has had significant difficulty since that time. Patient was seen by his primary care physician who instructed him to begin Lasix. He states he has been urinating more often however he does not think it has been sufficient. He denies any fevers, cough, abdominal pain, vomiting or diarrhea. Home Medications Home Medications Medication Instructions Recorded Confirmed Type Spiriva with HandiHaler 1 cap INHALATION QAM 03/27/19 11/29/19 History albuterol sulfate [Ventolin HFA] 1 puff INHALATION Q6H PRN 03/27/19 11/29/19 History atorvastatin 10 mg PO QAM 03/27/19 11/29/19 History cetirizine 5 mg PO HS 03/27/19 11/29/19 History cholecalciferol (vitamin D3) 5,000 unit PO DAILY 03/27/19 11/29/19 History fluticasone propion-salmeterol 1 inh INHALATION BID 03/27/19 11/29/19 History [Advair Diskus] hydroxyzine HCl 10 mg PO QID PRN 03/27/19 11/29/19 History warfarin 2.5 mg PO 4XWK 03/27/19 11/29/19 History warfarin 5 mg PO 3XWK 03/27/19 11/29/19 History furosemide [Lasix] 40 mg PO DAILY PRN #10 tab 03/31/19 11/29/19 Rx isosorbide dinitrate 10 mg PO BID@0700,1200 #30 tab 03/31/19 11/29/19 Rx ferrous sulfate [iron] 325 mg PO DAILY 11/29/19 11/29/19 History Allergies Allergy/AdvReac Type Severity Reaction Status Date / Time aspirin Allergy Intermediate HIVES Verified 11/29/19 01:43 levofloxacin [From Levaquin] AdvReac Severe Delirium Verified 11/29/19 01:43 oxycodone AdvReac Mild INTOLERATE Verified 11/29/19 01:43 TO PERCOCET OR OXYCONTIN Past Med/Surg History Medical History Abdominal aortic aneurysm (Chronic) s/p AAA repair in 2012 at [facility]) Cerebrovascular disease (Chronic) "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" Chronic diastolic heart failure (Chronic) CKD (chronic kidney disease), stage III (Chronic) Coronary artery disease (Chronic) Diabetes mellitus type II, controlled (Chronic) Diabetic neuropathy (Chronic) Dyslipidemia (Chronic) Sleep apnea (Chronic) Surgical History Status post abdominal aortic aneurysm repair (Chronic) " 2012 [facility]" Status post total knee replacement (Chronic) Family History Other Thyroid disorder Social History Preferred Language: Egyptian Communication Ability: Effective Cop Breaker Required: No Beliefs That Will Affect Care: None marital status: / marital status details: in October 2017 Current Living Situation: Alone Other Information That Helps Us Care for You: No Feels Safe at Home: Yes Safety Concerns: Feels Safe At This Time Smoking Status: Former smoker Hx Alcohol Use: No Hx Substance Use: No Review of Systems See HPI for pertinent positives & negatives. and A total of 10 systems reviewed and were otherwise negative Physical Exam Vital Signs Vital Signs - 24 hr 11/29/19 00:17 11/29/19 00:30 11/29/19 00:57 Temperature 36.4 C L Temperature Source Oral Pulse Rate 78 70 Pulse Rate from SpO2 Sensor Respiratory Rate 24 26 H Respiratory Effort / Characteristics Non-Labored Spontaneous Respiratory Depth Normal Normal Blood Pressure 146/81 H Blood Pressure Mean 102 Pulse Oximetry 94 98 Oxygen Delivery Method Room Air Room Air Sepsis Recent Fever Within 48 Hours No Sepsis New/Unexplained Change in Mental Status No Sepsis Action Taken by Nursing No Action Required 11/29/19 01:00 11/29/19 01:06 11/29/19 01:30 Temperature Temperature Source Pulse Rate 81 80 70 Pulse Rate from SpO2 Sensor 86 80 Respiratory Rate 28 H 27 H 22 Respiratory Effort / Characteristics Respiratory Depth Blood Pressure 149/81 H 148/81 H Blood Pressure Mean 105 96 Pulse Oximetry 93 95 Oxygen Delivery Method Sepsis Recent Fever Within 48 Hours Sepsis New/Unexplained Change in Mental Status Sepsis Action Taken by Nursing 11/29/19 02:15 11/29/19 02:17 11/29/19 02:30 Temperature Temperature Source Pulse Rate 86 85 83 Pulse Rate from SpO2 Sensor 85 85 81 Respiratory Rate 15 20 14 Respiratory Effort / Characteristics Respiratory Depth Blood Pressure 153/90 H 137/63 Blood Pressure Mean 117 66 Pulse Oximetry 88 L 92 90 Oxygen Delivery Method Sepsis Recent Fever Within 48 Hours Sepsis New/Unexplained Change in Mental Status Sepsis Action Taken by Nursing 11/29/19 02:31 Temperature Temperature Source Pulse Rate 86 Pulse Rate from SpO2 Sensor 85 Respiratory Rate 16 Respiratory Effort / Characteristics Respiratory Depth Blood Pressure Blood Pressure Mean Pulse Oximetry 91 Oxygen Delivery Method Sepsis Recent Fever Within 48 Hours Sepsis New/Unexplained Change in Mental Status Sepsis Action Taken by Nursing Vital signs reviewed. General: Elderly, chronically ill appearing 89 yo male, in no significant distress. HEENT: No scleral icterus, PERRLA, neck supple. Poor dentition. Cardiovascular: Irregular and rate controlled Pulmonary: Clear to auscultation bilaterally, normal work of breathing. Abdomen: Soft, nontender, nondistended, positive bowel sounds. Musculoskeletal: Atraumatic, no peripheral edema. Neurologic: Patient awake alert and oriented x 3 Skin: Warm, dry, no rash Course Administered Medications Discontinued Medications Furosemide (Lasix) 60 mg IV NOW STA Stop: 11/29/19 01:00 Last Admin: 11/29/19 01:05 Dose: 60 mg Documented by: [id number] Levalbuterol HCl (Xopenex 0.63 Mg/3 Ml Neb) 0.63 mg NEB NOW STA Stop: 11/29/19 03:15 Last Admin: 11/29/19 03:33 Dose: 0.63 mg Documented by: [id number] Medical Decision Making Differential Diagnosis Differential diagnosis: Etiologies such as infections, reactive airway disease, COPD, pneumonia, pleural effusion, pulmonary edema, ARDS, pneumothorax, CHF, cardiac ischemia, cardiac tamponade, dysrhythmia, anemia, pulmonary embolism, musculoskeletal, gastrointestinal process, as well as others were entertained. Medical Records Attestation: I reviewed the patient's medical records. Home Medications Current Medication List: was personally reviewed by me Laboratory Data Attestation: I reviewed the patient's lab results. Result diagrams: 11/29/19 06:33 11/29/19 01:05 Lab Results 11/29/19 11/29/19 11/29/19 Range/Units 00:45 01:05 01:05 WBC 7.42 (4.8-10.8) K/uL RBC 4.42 L (4.7-6.1) M/uL Hgb 12.8 L (14.0-18.0) g/dL Hct 39.4 L (42-52) % MCV 89.1 (80-100) fL MCH 29.0 (25-34) pg MCHC 32.5 (32-36) g/dL RDW Std Deviation 59.4 H (36.4-46.3) fL RDW Coeff of Dwayne 18.2 H (11.5-14.5) % Plt Count 145 (130-400) K/uL MPV 11.6 H (7.4-10.4) fL Immature Gran % (Auto) 0.3 % Neut % (Auto) 76.5 % Lymph % (Auto) 14.3 % Wake % (Auto) 7.0 % Eos % (Auto) 1.6 % Baso % (Auto) 0.3 % Neut # (Auto) 5.68 (1.4-6.5) K/uL Lymph # (Auto) 1.06 L (1.2-3.4) K/uL Wake # (Auto) 0.52 (0.11-0.59) K/uL Eos # (Auto) 0.12 (0-0.5) K/uL Baso # (Auto) 0.02 (0-0.2) K/uL Immature Gran # (Auto) 0.02 (0.00-0.02) K/uL PT 21.4 H (9.0-12.0) Seconds INR 2.1 H (0.9-1.1) APTT 37.7 H (21.0-31.0) Seconds PTT Ratio 1.4 Sodium 142 (136-145) mmol/L Potassium 4.2 (3.5-5.1) mmol/L Chloride 111 H (98-107) mmol/L Carbon Dioxide 22 (21-32) mmol/L Anion Gap 9.0 (3-11) BUN 34 H (7-18) mg/dl Creatinine 1.79 H (0.6-1.4) mg/dl Est Cr Clr Drug Dosing 37.4 ml/min Est GFR ( Amer) 38.6 Est GFR (Non-Af Amer) 33.3 BUN/Creatinine Ratio 19.1 (10-20) Glucose 132 H (70-99) mg/dl Calcium 8.7 (8.5-10.1) mg/dl Magnesium 2.0 (1.8-2.4) mg/dl Total Bilirubin 1.7 H (0.2-1) mg/dl AST 27 (15-37) U/L ALT 24 (12-78) U/L Alkaline Phosphatase 97 (45-117) U/L Troponin I 0.038 (0-0.045) ng/ml NT-Pro-B Natriuret Pep 85685 H (0-1800) pg/ml Total Protein 7.9 (6.4-8.2) gm/dl Albumin 2.7 L (3.4-5.0) gm/dl Globulin 5.2 H (2.5-4.0) gm/dl Albumin/Globulin Ratio 0.5 L (0.9-2) Urine Color Urine Appearance (Clear) Urine pH (4.5-7.5) Ur Specific Calhoun (1.000-1.030) Urine Protein (Negative) Urine Glucose (UA) (Negative) Urine Ketones (Negative) Urine Blood (Negative) Urine Nitrite (Negative) Urine Bilirubin (Negative) Urine Urobilinogen (Negative) Ur Leukocyte Esterase (Negative) Urine WBC (Auto) (0-5) /hpf Urine RBC (Auto) (0-4) /hpf U Hyaline Cast (Auto) (0-5) /lpf U Epithel Cells (Auto) (0-5) /lpf Urine Bacteria (Auto) (Negative) 11/29/19 Range/Units 01:15 WBC (4.8-10.8) K/uL RBC (4.7-6.1) M/uL Hgb (14.0-18.0) g/dL Hct (42-52) % MCV (80-100) fL MCH (25-34) pg MCHC (32-36) g/dL RDW Std Deviation (36.4-46.3) fL RDW Coeff of Dwayne (11.5-14.5) % Plt Count (130-400) K/uL MPV (7.4-10.4) fL Immature Gran % (Auto) % Neut % (Auto) % Lymph % (Auto) % Wake % (Auto) % Eos % (Auto) % Baso % (Auto) % Neut # (Auto) (1.4-6.5) K/uL Lymph # (Auto) (1.2-3.4) K/uL Wake # (Auto) (0.11-0.59) K/uL Eos # (Auto) (0-0.5) K/uL Baso # (Auto) (0-0.2) K/uL Immature Gran # (Auto) (0.00-0.02) K/uL PT (9.0-12.0) Seconds INR (0.9-1.1) APTT (21.0-31.0) Seconds PTT Ratio Sodium (136-145) mmol/L Potassium (3.5-5.1) mmol/L Chloride (98-107) mmol/L Carbon Dioxide (21-32) mmol/L Anion Gap (3-11) BUN (7-18) mg/dl Creatinine (0.6-1.4) mg/dl Est Cr Clr Drug Dosing ml/min Est GFR ( Amer) Est GFR (Non-Af Amer) BUN/Creatinine Ratio (10-20) Glucose (70-99) mg/dl Calcium (8.5-10.1) mg/dl Magnesium (1.8-2.4) mg/dl Total Bilirubin (0.2-1) mg/dl AST (15-37) U/L ALT (12-78) U/L Alkaline Phosphatase (45-117) U/L Troponin I (0-0.045) ng/ml NT-Pro-B Natriuret Pep (0-1800) pg/ml Total Protein (6.4-8.2) gm/dl Albumin (3.4-5.0) gm/dl Globulin (2.5-4.0) gm/dl Albumin/Globulin Ratio (0.9-2) Urine Color Dark Yellow Urine Appearance Cloudy A (Clear) Urine pH 5.0 (4.5-7.5) Ur Specific Calhoun 1.025 (1.000-1.030) Urine Protein 2+ H (Negative) Urine Glucose (UA) Negative (Negative) Urine Ketones Trace H (Negative) Urine Blood 1+ H (Negative) Urine Nitrite Negative (Negative) Urine Bilirubin 1+ H (Negative) Urine Urobilinogen Negative (Negative) Ur Leukocyte Esterase Negative (Negative) Urine WBC (Auto) 1-5 (0-5) /hpf Urine RBC (Auto) 0-4 (0-4) /hpf U Hyaline Cast (Auto) 1-5 (0-5) /lpf U Epithel Cells (Auto) 5-10 H (0-5) /lpf Urine Bacteria (Auto) Negative (Negative) Imaging Data Attestation: I personally reviewed and interpreted this imaging study as follows: My Impression: Chest x-ray to my interpretation reveals cardiomegaly and congestive heart failure. ECG Data Attestation: I personally reviewed and interpreted this ECG as follows: Indication: + SOB/dyspnea Rate (beats per minute): 77 Rhythm: + atrial fibrillation ECG Keavy: + Left axis deviation ECG Findings: + Q waves (Inferior, anterior) and + PVCs Blood Pressure Blood Pressure Findings: Elevated blood pressure Blood Pressure Disposition: further management by hospitalist YOVANY Narrative This pt was evaluated and appeared to be in no distress. IV access was obtained and laboratory work was drawn. An order for cardiac monitoring was placed and the patient is found to be in a rate controlled atrial fibrillation at 77 bpm. Chest x-ray was performed and reveals evidence of congestive heart failure. Patient was given 60 mg of IV Lasix. Patient's EKG reveals the rate controlled atrial fibrillation with PVCs and Q waves anteriorly and inferiorly. Patient's laboratory work reveals a normal WBC, INR of 2.1 and normal electrolytes. Troponin is 0.038 with a BNP of 10,849. Case was discussed with the hospitalist service who will evaluate the patient for further management. Patient is aware of the plan and agrees. Impression & Plan Congestive heart failure Discharge Plan Visit Data *Final* Discharge Date/Time: 11/29/19 03:48 Chief Complaint: Respiratory Problems Stated Complaint: HAVING TROUBLE BREATHING ED Provider: Linda Patel Discharge Problem: Congestive heart failure Patient Disposition: Admitted As Inpatient Discharge Instructions Interventions: ED Discharge Assessment Last Done: 11/29/19 03:48 Discharge Problem: Congestive heart failure Qualifiers: Heart failure type: unspecified Heart failure chronicity: acute on chronic Qualified Code(s): I50.9 - Heart failure, unspecified
[2019-11-29] MEDS ORDERED: CARBOHYDRATES FOR HYPOGLYCEMIA PO PRN (05:00)
[2019-11-29] MEDS ORDERED: DEXTROSE 50% 50 ML SYRINGE IV PRN (05:00)
[2019-11-29] MEDS ORDERED: GLUCOSE 40% GEL 15 GM TUBE PO PRN (05:00)
[2019-11-29] MEDS ORDERED: GLUCAGON FOR INJ 1 MG VIAL IM PRN (05:00)
[2019-11-29] MEDS ORDERED: GLUCOSE 10 TABS/TUBE PO PRN (05:00)
--- NOTE | 2019-11-29 05:51 | History and Physical Report ---
DATE OF ADMISSION: 11/29/2019 CHIEF COMPLAINT: Shortness of breath. HISTORY OF PRESENT ILLNESS: This is an 89-year-old male with past medical history significant for type 2 diabetes, not on any medication currently, hyperlipidemia, COPD, sleep apnea, on CPAP, abdominal aortic aneurysm status post repair, chronic diastolic CHF, history of paroxysmal atrial fibrillation, history of tachybrady syndrome, chronic kidney disease stage III, history of chronic urticaria, history of CVA, history of severe mitral regurgitation, status post mitral valve clip procedure done at [facility] on 07/13/2019, who presents with shortness of breath. As per daughter who works in healthcare, the patient lives alone, son lives next door and daughter lives close by. The patient is usually active. He takes care of himself. In August, he fell from a chair and he had some bruises, no broken bones, but since then he is developing shortness of breath and he saw his family doctor. A chest x-ray was done on 11/09/19which showed some pulmonary congestions and currently he is taking Lasix every day 40 mg. The patient today mowed grass, but when he went to sleep, he was feeling short of breath, not feeling well, so he was brought in here. His chest x-ray showed pulmonary congestion and lower extremity edema. He was given a dose of IV, 60 mg of Lasix, He is still feeling short of breath, but he is able to talk in full sentences. Very hard of hearing. Daughter helped with most of the history. He has a chronic cough. Once in a while he gets phlegm. Denies any fever, chills. No chest pain, no abdominal pain, no nausea, no headache. No blurred visions. No earache. He has runny nose from his allergies. No sore throat, no difficulty swallowing. He is on regular diet. Appetite is okay. Normal bowel and bladder movements. No rash anywhere. Afebrile. ALLERGIES: ASPIRIN, LEVAQUIN, OXYCODONE. PAST MEDICAL HISTORY: As mentioned above. PAST SURGICAL HISTORY: Abdominal aortic aneurysm repair, knee arthroplasty, end aortoiliac combined at [facility] in 2012, transapical mitral valve repair in June 2019, mitral valve clipped at [facility]. MEDICATIONS: The patient is on cetirizine 5 mg p.o. at bedtime, iron tablets 1 tablet p.o. daily, Lasix currently 40 mg daily, albuterol 2 puffs every 4 hours p.r.n., isosorbide dinitrate 10 mg p.o. daily, Advair Diskus 500/50 one inhalation b.i.d., Spiriva inhaler 18 mcg inhalation daily, Coumadin 5 mg on Sundays, Tuesdays, and 2.5 mg all other days, hydroxyzine 10 mg p.o. q. 6 hours p.r.n., atorvastatin 10 mg p.o. daily, vitamin D 5000 units p.o. daily. FAMILY HISTORY: Significant for father had colon cancer; mother had thyroid disorder. SOCIAL HISTORY: Currently is living alone. Former smoker, quit in 2003, prior to that smoked 1.5 packs a day for 51 years. No alcohol use, no drug use. REVIEW OF SYSTEMS: As per HPI. Rest of the review of systems negative. PHYSICAL EXAMINATION: GENERAL: The patient is old, but not in acute distress. VITAL SIGNS: Temperature 36.4, pulse 86, respiratory rate 16, blood pressure 137/63, oxygen 95% on room air. HEENT: No pallor, no icterus. Pupils equal, round, and reactive to light. NECK: No JVD, no neck masses, no carotid bruits. CARDIOVASCULAR: S1, S2 heard, regular rate and rhythm, no murmur, no gallop. RESPIRATORY SYSTEM: Normal AP diameter. No accessory muscle use. No wheezing. Diminished breath sounds. Mild bibasilar crackles. ABDOMEN: Soft, bowel sounds present, nontender. No distention. CENTRAL NERVOUS SYSTEM: Cranial nerves II-XII grossly intact. Nonfocal. EXTREMITIES: Bilateral lower extremity, +2 edema present, no erythema seen. LABORATORY DATA: WBC 7.4, hemoglobin 12.8, hematocrit 39.4, platelets 145. PT 21.4, INR 2.1, APTT 37.7. Sodium 142, potassium 4.2, chloride 111, CO2 of 22, BUN 34, creatinine 1.79, serum glucose 132, calcium 8.7, magnesium 2, total bilirubin 1.7, AST 27, ALT 34, alkaline phosphatase 97. Troponin I of 0.038. BNP 10,849. Urinalysis, +2 protein. Negative for bacteria. IMAGING DATA: Chest x-ray, bilateral pulmonary congestion. EKG: Atrial fibrillation with PVCs at the rate of 77, left axis deviation, T-wave inversions in lateral leads. ASSESSMENT AND PLAN: This is an 89-year-old male who presents with shortness of breath. 1. Shortness of breath, most likely [id number] diastolic congestive heart failure from his valvular heart disease. He received IV Lasix 60 mg in the ER. We will place on IV Lasix 40 b.i.d. Daily weights, I's and O's, echocardiogram, and consult cardiology for further recommendations. 2. History of sleep apnea, on CPAP at bedtime. 3. History of chronic obstructive pulmonary disease. Continue home inhalers and placed on nebs p.r.n. 4. Chronic kidney disease stage III, baseline creatinine around 1.7, currently creatinine of 1.7. We will follow the labs while on IV Lasix. 5. Diabetes, not on any medications. We will follow HbA1c level. We will place on insulin sliding scale while in the hospital. 6. History of hypertension. Continue his home medication of isosorbide dinitrate. We will follow the blood pressure. 7. History of atrial fibrillation, not on any rate control medications, Coumadin is therapeutic. Follow the PT/INR. 8. History of mitral regurgitation status post mitral valve clip procedure at [facility] in June 2019. Follow the echocardiogram. 9. History of abdominal aortic aneurysm repair. 10. History of nonobstructive coronary artery disease, stable 11. Deep venous thrombosis prophylaxis, on Coumadin. INR therapeutic. 12. Disposition: Closely monitor in tele floor. Level 1 full code. Daughter wants to notify Cardiology at [facility], Dr. Tamar Crews, phone number [phone]. PT and OT prior to discharge. Social service to help with discharge planning. LAURAD
[2019-11-29 06:48] LABS: Basophils # (auto) 0.02 K/uL (0-0.2); Basophils % (auto) 0.3 %; Eosinophils % (auto) 1.3 %; Hematocrit (blood only) 39.9 % (42-52); Hemoglobin 12.9 g/dL (14.0-18.0); Immature Granulocytes # (auto) 0.01 K/uL (0.00-0.02); Immature Granulocytes % (auto) 0.1 %; Lymphocytes # (auto) 1.37 K/uL (1.2-3.4); Lymphocytes % (auto) 18.5 %; Mean Corpuscular Hemoglobin 28.6 pg (25-34); Mean Corpuscular Hgb Conc 32.3 g/dL (32-36); Mean Corpuscular Volume 88.5 fL (80-100); Mean Platelet Volume 10.6 fL (7.4-10.4); Monocytes # (auto) 0.64 K/uL (0.11-0.59); Monocytes % (auto) 8.6 %; Neutrophils # (auto) 5.28 K/uL (1.4-6.5); Neutrophils % (auto) 71.2 %; Platelet Count 129 K/uL (130-400); Red Blood Count 4.51 M/uL (4.7-6.1); White Blood Count 7.42 K/uL (4.8-10.8)
[2019-11-29 06:59] LABS: Prothrombin Time 20.5 Seconds (9.0-12.0)
--- NOTE | 2019-11-29 07:04 | XRay Report ---
XR chest 1V portable CLINICAL HISTORY: Dyspnea COMPARISON STUDY: 03/31/2019 FINDINGS: The heart is enlarged. There is diffuse elevation of interstitium likely secondary to pulmo nary edema. There is blunting of the lateral costophrenic angles suggesting small effusions.[ IMPRESSION: Pulmonary edema pattern. Clinical and radiographic follow-up is recommended. ACT 112: Negative or not required by law. Electronically signed by: Warner Parker M.D. 11/29/2019 7:03 AM
[2019-11-29 07:14] LABS: BUN Creatinine Ratio 21.1 (10-20); Creatinine Clr Calc Pharmacy 37.1 ml/min; Est GFR (African American) 38.6; Est GFR (Non-African American) 33.3; Potassium 3.9 mmol/L (3.5-5.1)
[2019-11-29 07:23] LABS: Troponin I 0.048 ng/ml (0-0.045)
[2019-11-29] MEDS: UMECLIDINIUM BROMIDE 62.5MCG/BLISTER 7 PUFFS/INHALER INH SCH (07:55)
[2019-11-29] MEDS: FLUTICASONE/VILANTEROL 200/25MCG 14 PUFFS/INHALER INH SCH (07:55)
[2019-11-29] MEDS: ATORVASTATIN 10 MG TAB PO SCH (07:56)
[2019-11-29] MEDS: FERROUS SULFATE 325 MG TAB PO SCH (07:56)
[2019-11-29] MEDS: ISOSORBIDE DINITRATE 10 MG TAB PO SCH ×2 (07:56→13:12)
[2019-11-29] MEDS: CHOLECALCIFEROL 1,000 UNITS 25 MCG TAB PO SCH (07:57)
[2019-11-29] MEDS: INSULIN ASPART 100 UNITS/ML 3 ML PEN SC SCH ×4 (07:58→22:14)
[2019-11-29] MEDS: FUROSEMIDE 40 MG in SYRINGE 0 ML IV SCH ×2 (08:08→16:50)
[2019-11-29 08:12] LABS: Estimated Average Glucose 126 mg/dl
[2019-11-29] MEDS ORDERED: FUROSEMIDE 40 MG/4 ML VIAL IV SCH (09:00)
--- NOTE | 2019-11-29 16:24 | Hospitalist Progress Note ---
Date of Service November 29, 2019 Assessment & Plan (1) Acute on chronic diastolic CHF (congestive heart failure): Present on admission with worsening SOB CXR showed pulmonary edema pattern. Received Lasix IV 60mg in the ER Currently on Lasix 40mg IV BID Cardiology on board Monitor I/O Will repeat CXR in am Monitor BMP while on IV lasix ECHO pending . History of sleep apnea Continue CPAP at bedtime History of chronic obstructive pulmonary disease. Continue home inhaler and duonep prn Chronic kidney disease stage III Creatinine at baseline 1.7 Monitor BMP closely Diabetes Recent Hba1c 6 on 11/29/19 On Insulin sliding scale Continue monitor BS History of hypertension. BP stable Continue his home medication with isosorbide dinitrate. History of atrial fibrillation, Rate control Continue coumadin, INR 2 today Continue monitor PT/INR History of mitral regurgitation S/P mitral valve clip procedure at [facility] in June 2019. Echocardiogram pending 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 with INR 2 Disposition Continue monitor in tele Admission and Anticipated Discharge Date Admission Date: November 29, 2019 Subjective Pt was seen and examined Lying in bed with no distress Pt said that his breathing is a little better He said that he has a chronic cough and has been bringing some phlegm up Denies any chest pain, palpitation and fever Physical Exam Physical Exam: General- No acute distress Head- atraumatic Eyes- PERRL, EOMI, ENT- oropharynx clear Neck- supple, no JVD Lungs- clear to auscultation Heart- regular rhythm; no murmur Abdomen- normal bowel sounds, soft, nontender Extremities- no calf tenderness, +edema Neuro- alert, oriented x 3; PERRL, EOMI; no facial palsy; no dysarthria Skin- warm & dry Results & Data Results & Data ([facility]) Vital Signs (Past 12 Hours) Vital Signs Temp Pulse Pulse Resp BP BP Pulse Ox 11/29/19 15:57 36.7 C 73 19 118/48 L 94 11/29/19 14:00 54 L 15 11/29/19 12:02 67 22 11/29/19 12:00 71 23 11/29/19 10:00 55 L 17 11/29/19 07:48 76 18 137/77 95 11/29/19 07:00 72 16 114/53 L 94 11/29/19 06:00 68 79 22 118/65 118/65 91 11/29/19 05:00 65 19 142/74 H 94 11/29/19 04:38 73 16 92
[2019-11-29] MEDS: WARFARIN SOD 2.5 MG TAB PO SCH (16:49)
[2019-11-29] MEDS ORDERED: POTASSIUM CHLORIDE 20 MEQ TABCR PO STA (16:52)
--- NOTE | 2019-11-29 17:24 | Cardiology Consultation ---
Date of Consultation November 29, 2019 Assessment & Plan (1) Combined systolic and diastolic congestive heart failure: (2) Persistent atrial fibrillation: (3) CKD (chronic kidney disease), stage III: Patient presented with acute on chronic decompensated systolic and diastolic heart failure now improving with IV diuretics. Underlying rhythm is atrial fibrillation with intrinsic conduction system disease ( no AV node blocking drugs) Plan continue diuresis watching heart rates and rhythm as well as renal function. Patient already responding to therapies (4) Elevated troponin: No significant obstructive disease by cardiac catheterization June 2019, EKGs unchanged suspect secondary to acute heart failure and strain Patient presented with acute on chronic decompensated systolic and diastolic congestive heart failure signs and symptoms. He has responded and is improving with IV diuretics. Continue IV Lasix, 40 mg twice per day. Strict I's/O's. Daily weights on the same standing scale. Daily basic metabolic panels. Suspect patient require daily diuretic dosing post discharge. Atrial fibrillation. Appears persistent. Rate controlled, without need for AV anaid blockers. Intrinsic conduction system disease. Prior ambulatory EKGs notable for borderline Tachy-Woody Syndrome. Maintain telemetry. No overt indication for permanent pacemaker implantation at this point. No signs or symptoms to suggest active/acute bleeding. Continue anticoagulation. 14 beat run of wide complex tachycardia consistent with ventricular tachycardia. Asymptomatic. Follow electrolytes closely, supplementing potassium and magnesium as necessary. Minimally elevated troponin. Asymptomatic. No evidence to suggest an acute coronary syndrome. Nonobstructive coronary artery disease observed via June 2019 cardiac catheterization. Continue medical management. Severe mitral regurgitation. Status post mitral valve clip in June 2019. See echo results. Hypertension. Blood pressure is acceptable. Follow. Dyslipidemia. History of statin intolerance. Tolerating atorvastatin. Continue low-dose atorvastatin. COPD. Suspect mild exacerbation. As per hospitalist service. History of Present Illness Reason for Consultation: Congestive heart failure Requesting Physician: Elena Attending Physician: Иван History of Present Illness Patient notably evaluated in the ICU, Room 111, at approximately 8:30 AM on 11/29/2019. Complex 89-year-old male who presented to the hospital on November 29, 2019 with complaints of acute on chronic dyspnea, orthopnea, and increased lower extremity peripheral edema after failing outpatient attempts at titration of oral diuretcs. Chest x-ray on presentation revealed pulmonary congestion. Patient was given 60 mg of IV Lasix then prescribed 40 mg IV BID. He feels substantially better. 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 Left Main: Large caliber vessel that gives rise to the left anterior descending (LAD) and left circumflex (LCX) branches and is free of stenosis. LAD: Large caliber vessel that gives rise to two large diagonal branches (LADD1 and LADD2) before continuing to wrap the cardiac apex distally. The LAD contains mild diffuse luminal disease (20 to 30% stenosis). There is 40 to 50% ostial stenosis of the LADD2 branch. LCX: Large caliber codominant vessel that gives rise to a large arborizing obtuse marginal branch before continuing in the AV groove to supply several left posterior lateral branches (LPLB) and a small left posterior descending artery (LPDA) distally. The LCX and its branches contain mild diffuse luminal disease (20 to 30% stenosis). RCA: Large caliber codominant vessel that gives rise to the right posterior descending (RPDA) distally. The RCA and its branches contain mild diffuse luminal disease (20 to 30% stenosis). Stage 3 chronic kidney disease Hypertension Dyslipidemia COPD History of CVA Sleep apnea, CPAP therapy Abdominal aortic aneurysm status post repair Type 2 diabetes mellitus Allergies Allergy/AdvReac Type Severity Reaction Status Date / Time aspirin Allergy Intermediate HIVES Verified 11/29/19 01:43 levofloxacin [From Levaquin] AdvReac Severe Delirium Verified 11/29/19 01:43 oxycodone AdvReac Mild INTOLERATE Verified 11/29/19 01:43 TO PERCOCET OR OXYCONTIN Home Medications Home Medications Medication Instructions Recorded Confirmed Type Spiriva with HandiHaler 1 cap INHALATION QAM 03/27/19 11/29/19 History albuterol sulfate [Ventolin HFA] 1 puff INHALATION Q6H PRN 03/27/19 11/29/19 History atorvastatin 10 mg PO QAM 03/27/19 11/29/19 History cetirizine 5 mg PO HS 03/27/19 11/29/19 History cholecalciferol (vitamin D3) 5,000 unit PO DAILY 03/27/19 11/29/19 History fluticasone propion-salmeterol 1 inh INHALATION BID 03/27/19 11/29/19 History [Advair Diskus] hydroxyzine HCl 10 mg PO QID PRN 03/27/19 11/29/19 History warfarin 2.5 mg PO 4XWK 03/27/19 11/29/19 History warfarin 5 mg PO 3XWK 03/27/19 11/29/19 History furosemide [Lasix] 40 mg PO DAILY PRN #10 tab 03/31/19 11/29/19 Rx isosorbide dinitrate 10 mg PO BID@0700,1200 #30 tab 03/31/19 11/29/19 Rx ferrous sulfate [iron] 325 mg PO DAILY 11/29/19 11/29/19 History Patient History Medical History Abdominal aortic aneurysm (Chronic) s/p AAA repair in 2012 at [facility]) Cerebrovascular disease (Chronic) "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" Chronic diastolic heart failure (Chronic) CKD (chronic kidney disease), stage III (Chronic) Coronary artery disease (Chronic) Diabetes mellitus type II, controlled (Chronic) Diabetic neuropathy (Chronic) Dyslipidemia (Chronic) Sleep apnea (Chronic) Surgical History Status post abdominal aortic aneurysm repair (Chronic) " 2012 [facility]" Status post total knee replacement (Chronic) Family History Other Thyroid disorder Social History Preferred Language: Kiswahili Communication Ability: Effective Open Die Inspector Required: No Beliefs That Will Affect Care: None marital status: / marital status details: in October 2017 Current Living Situation: Alone Other Information That Helps Us Care for You: No Feels Safe at Home: Yes Safety Concerns: Feels Safe At This Time Smoking Status: Former smoker Hx Alcohol Use: No Hx Substance Use: No Review of Systems Review of Systems: All systems reviewed & are unremarkable except as noted in HPI & below Constitutional: no fever and no chills Ear, Nose, Mouth, Throat: + hearing loss Respiratory: + cough, + chest congestion, + dyspnea and + dyspnea on exertion; no hemoptysis and no pain on inspiration Cardiovascular: + chest pain at rest, + dyspnea, + dyspnea on exertion, + orthopnea, + paroxysmal nocturnal dyspnea and + edema; no chest pain with activity, no palpitations, no syncope and no claudication Gastrointestinal: + bloating; no nausea and no vomiting Musculoskeletal: + swelling; no neck pain Integumentary: no rash Physical Exam Physical Exam: General: A&Ox3. Considerably hard of hearing. NAD. Elevated BMI. HEENT: Normocephalic. Atraumatic. Conjunctiva pink, no scleral icterus. Mouth: Poor dentition. Neck: + carotid bruits. No JVD. Heart: Irregularly irregular in the 70's. Somewhat distant heart sounds, normal S-1 and S-2 no S-3 or S-4 gallop. I would not appreciate a systolic or diastolic murmur. No rubs appreciated. No RV heave. Lungs: Diffuse expiratory wheeze. Bibasilar rales, worse on the right. Abdomen: Normal bowel sounds. Soft. Nontender. No masses or organomegaly. No abdominal bruits. Extremities: Mild bilateral pretibial edema. No clubbing, or cyanosis. Pulses: radial=2/4, posterior tibial=2/4. Neuro: No focal deficits. Results & Data ([facility]) Vital Signs (Past 12 Hours) Vital Signs Temp Pulse Pulse Resp BP BP Pulse Ox 11/29/19 15:57 36.7 C 73 19 118/48 L 94 11/29/19 14:00 54 L 15 11/29/19 12:02 67 22 11/29/19 12:00 71 23 11/29/19 10:00 55 L 17 11/29/19 07:48 76 18 137/77 95 11/29/19 07:00 72 16 114/53 L 94 11/29/19 06:00 68 79 22 118/65 118/65 91 Laboratory Results Laboratory Results - last 24 hr 11/29/19 11/29/19 11/29/19 00:45 01:05 01:05 WBC 7.42 RBC 4.42 L Hgb 12.8 L Hct 39.4 L MCV 89.1 MCH 29.0 MCHC 32.5 RDW Std Deviation 59.4 H RDW Coeff of Dwayne 18.2 H Plt Count 145 MPV 11.6 H Immature Gran % (Auto) 0.3 Neut % (Auto) 76.5 Lymph % (Auto) 14.3 [place] % (Auto) 7.0 Eos % (Auto) 1.6 Baso % (Auto) 0.3 Neut # (Auto) 5.68 Lymph # (Auto) 1.06 L [place] # (Auto) 0.52 Eos # (Auto) 0.12 Baso # (Auto) 0.02 Immature Gran # (Auto) 0.02 PT 21.4 H INR 2.1 H APTT 37.7 H PTT Ratio 1.4 Sodium 142 Potassium 4.2 Chloride 111 H Carbon Dioxide 22 Anion Gap 9.0 BUN 34 H Creatinine 1.79 H Est Cr Clr Drug Dosing 37.4 Est GFR ( Amer) 38.6 Est GFR (Non-Af Amer) 33.3 BUN/Creatinine Ratio 19.1 Glucose 132 H POC Glucose Estimat Average Glucose Hemoglobin A1c Calcium 8.7 Magnesium 2.0 Total Bilirubin 1.7 H AST 27 ALT 24 Alkaline Phosphatase 97 Troponin I 0.038 NT-Pro-B Natriuret Pep 05366 H Total Protein 7.9 Albumin 2.7 L Globulin 5.2 H Albumin/Globulin Ratio 0.5 L Urine Color Urine Appearance Urine pH Ur Specific [place] Urine Protein Urine Glucose (UA) Urine Ketones Urine Blood Urine Nitrite Urine Bilirubin Urine Urobilinogen Ur Leukocyte Esterase Urine WBC (Auto) Urine RBC (Auto) U Hyaline Cast (Auto) U Epithel Cells (Auto) Urine Bacteria (Auto) Nasal Screen MRSA (PCR) 11/29/19 11/29/19 11/29/19 01:15 04:10 06:33 WBC 7.42 RBC 4.51 L Hgb 12.9 L Hct 39.9 L MCV 88.5 MCH 28.6 MCHC 32.3 RDW Std Deviation 58.0 H RDW Coeff of Dwayne 18.0 H Plt Count 129 L MPV 10.6 H Immature Gran % (Auto) 0.1 Neut % (Auto) 71.2 Lymph % (Auto) 18.5 [place] % (Auto) 8.6 Eos % (Auto) 1.3 Baso % (Auto) 0.3 Neut # (Auto) 5.28 Lymph # (Auto) 1.37 [place] # (Auto) 0.64 H Eos # (Auto) 0.10 Baso # (Auto) 0.02 Immature Gran # (Auto) 0.01 PT INR APTT PTT Ratio Sodium Potassium Chloride Carbon Dioxide Anion Gap BUN Creatinine Est Cr Clr Drug Dosing Est GFR ( Amer) Est GFR (Non-Af Amer) BUN/Creatinine Ratio Glucose POC Glucose Estimat Average Glucose Hemoglobin A1c Calcium Magnesium Total Bilirubin AST ALT Alkaline Phosphatase Troponin I NT-Pro-B Natriuret Pep Total Protein Albumin Globulin Albumin/Globulin Ratio Urine Color Dark Yellow Urine Appearance Cloudy A Urine pH 5.0 Ur Specific [place] 1.025 Urine Protein 2+ H Urine Glucose (UA) Negative Urine Ketones Trace H Urine Blood 1+ H Urine Nitrite Negative Urine Bilirubin 1+ H Urine Urobilinogen Negative Ur Leukocyte Esterase Negative Urine WBC (Auto) 1-5 Urine RBC (Auto) 0-4 U Hyaline Cast (Auto) 1-5 U Epithel Cells (Auto) 5-10 H Urine Bacteria (Auto) Negative Nasal Screen MRSA (PCR) Negative 11/29/19 11/29/19 11/29/19 06:33 06:33 06:33 WBC RBC Hgb Hct MCV MCH MCHC RDW Std Deviation RDW Coeff of Dwayne Plt Count MPV Immature Gran % (Auto) Neut % (Auto) Lymph % (Auto) [place] % (Auto) Eos % (Auto) Baso % (Auto) Neut # (Auto) Lymph # (Auto) [place] # (Auto) Eos # (Auto) Baso # (Auto) Immature Gran # (Auto) PT 20.5 H INR 2.0 H APTT PTT Ratio Sodium 139 Potassium 3.9 Chloride 108 H Carbon Dioxide 27 Anion Gap 4.0 BUN 38 H Creatinine 1.79 H Est Cr Clr Drug Dosing 37.1 Est GFR ( Amer) 38.6 Est GFR (Non-Af Amer) 33.3 BUN/Creatinine Ratio 21.1 H Glucose 112 H POC Glucose Estimat Average Glucose 126 Hemoglobin A1c 6.0 H Calcium 9.0 Magnesium 2.0 Total Bilirubin AST ALT Alkaline Phosphatase Troponin I 0.048 H* NT-Pro-B Natriuret Pep Total Protein Albumin Globulin Albumin/Globulin Ratio Urine Color Urine Appearance Urine pH Ur Specific [place] Urine Protein Urine Glucose (UA) Urine Ketones Urine Blood Urine Nitrite Urine Bilirubin Urine Urobilinogen Ur Leukocyte Esterase Urine WBC (Auto) Urine RBC (Auto) U Hyaline Cast (Auto) U Epithel Cells (Auto) Urine Bacteria (Auto) Nasal Screen MRSA (PCR) 11/29/19 11/29/19 11/29/19 12:54 13:15 16:11 WBC RBC Hgb Hct MCV MCH MCHC RDW Std Deviation RDW Coeff of Dwayne Plt Count MPV Immature Gran % (Auto) Neut % (Auto) Lymph % (Auto) [place] % (Auto) Eos % (Auto) Baso % (Auto) Neut # (Auto) Lymph # (Auto) [place] # (Auto) Eos # (Auto) Baso # (Auto) Immature Gran # (Auto) PT INR APTT PTT Ratio Sodium Potassium Chloride Carbon Dioxide Anion Gap BUN Creatinine Est Cr Clr Drug Dosing Est GFR ( Amer) Est GFR (Non-Af Amer) BUN/Creatinine Ratio Glucose POC Glucose 114 H 100 H Estimat Average Glucose Hemoglobin A1c Calcium Magnesium Total Bilirubin AST ALT Alkaline Phosphatase Troponin I 0.045 NT-Pro-B Natriuret Pep Total Protein Albumin Globulin Albumin/Globulin Ratio Urine Color Urine Appearance Urine pH Ur Specific [place] Urine Protein Urine Glucose (UA) Urine Ketones Urine Blood Urine Nitrite Urine Bilirubin Urine Urobilinogen Ur Leukocyte Esterase Urine WBC (Auto) Urine RBC (Auto) U Hyaline Cast (Auto) U Epithel Cells (Auto) Urine Bacteria (Auto) Nasal Screen MRSA (PCR) Diagnostic Findings Continuous telemetry monitoring reveals atrial fibrillation with a ventricular rate primarily in the 70s and 80s. There was one 14 beat run of wide complex tachycardia, asymptomatic, earlier this morning. No significant pauses. EKG revealed atrial fibrillation with a ventricular rate of 77 bpm. There are p remature ventricular or aberrantly conducted complexes. Left axis deviation. Possible old anterior infarct. QTc 466 ms. Resting echocardiography was not available at the time of my evaluation however the report was available at the time of my documentation. November 29, 2019 TTE Interpretation Summary ([facility], Dr. Preston): Normal size left ventricle. Moderate concentric LVH. Mild diffuse hypokinesis of the LV with focal hypokinesis of the inferior posterior wall at the base and mid level. Ejection fraction 45 to 50%. Moderate aortic valve sclerosis, without significant aortic valve stenosis. Status post mitral valve clip implantation. Leaflets are notably thickened with restricted leaflet mobility, moderate intrinsic mitral valve stenosis. Mild mitral regurgitation. Mild tricuspid r egurgitation. Elevated RV systolic pressure, 30 to 40 mmHg.
--- NOTE | 2019-11-29 17:27 | Cardiology Progress Note ---
Date of Service November 29, 2019 Assessment & Plan (1) Combined systolic and diastolic congestive heart failure: (2) Persistent atrial fibrillation: (3) CKD (chronic kidney disease), stage III: Patient presented with acute on chronic decompensated systolic and diastolic heart failure now improving with IV diuretics. Underlying rhythm is atrial fibrillation with intrinsic conduction system disease ( no AV node blocking drugs) Plan continue diuresis watching heart rates and rhythm as well as renal function. Patient already responding to therapies (4) Elevated troponin: No significant obstructive disease by cardiac catheterization July 06, EKGs unchanged suspect secondary to acute heart failure and strain Subjective Patient seen and examined chart, telemetry, medications reviewed please refer to full consultation from earlier. Patient improving with IV diuretics. Less dyspneic less edema. Denies any chest pains tachypalpitations dizziness or lightheadedness. Physical Exam Constitutional: Elderly white male in no acute distress ENMT: external ear and nose normal, oropharynx normal Neck: trachea midline, no thyromegaly Respiratory: Bibasilar rales Cardiovascular: Rate/Rhythm: + irregularly irregular Heart Sounds: normal S1, normal S2 and + murmur (Grade 1/6 to 2/6 systolic, low-grade diastolic rumble) Vessels: + JVD Extremities: + edema Gastrointestinal (Abdomen): normal bowel sounds, soft, nontender, no hepatosplenomegaly Results & Data Vital Signs (Past 12 Hours) Vital Signs Temp Pulse Pulse Resp BP BP Pulse Ox 11/29/19 15:57 36.7 C 73 19 118/48 L 94 11/29/19 14:00 54 L 15 11/29/19 12:02 67 22 11/29/19 12:00 71 23 11/29/19 10:00 55 L 17 11/29/19 07:48 76 18 137/77 95 11/29/19 07:00 72 16 114/53 L 94 11/29/19 06:00 68 79 22 118/65 118/65 91 Laboratory Results Laboratory Results - last 24 hr 11/29/19 11/29/19 11/29/19 00:45 01:05 01:05 WBC 7.42 RBC 4.42 L Hgb 12.8 L Hct 39.4 L MCV 89.1 MCH 29.0 MCHC 32.5 RDW Std Deviation 59.4 H RDW Coeff of Dwayne 18.2 H Plt Count 145 MPV 11.6 H Immature Gran % (Auto) 0.3 Neut % (Auto) 76.5 Lymph % (Auto) 14.3 Callahan % (Auto) 7.0 Eos % (Auto) 1.6 Baso % (Auto) 0.3 Neut # (Auto) 5.68 Lymph # (Auto) 1.06 L Callahan # (Auto) 0.52 Eos # (Auto) 0.12 Baso # (Auto) 0.02 Immature Gran # (Auto) 0.02 PT 21.4 H INR 2.1 H APTT 37.7 H PTT Ratio 1.4 Sodium 142 Potassium 4.2 Chloride 111 H Carbon Dioxide 22 Anion Gap 9.0 BUN 34 H Creatinine 1.79 H Est Cr Clr Drug Dosing 37.4 Est GFR ( Amer) 38.6 Est GFR (Non-Af Amer) 33.3 BUN/Creatinine Ratio 19.1 Glucose 132 H POC Glucose Estimat Average Glucose Hemoglobin A1c Calcium 8.7 Magnesium 2.0 Total Bilirubin 1.7 H AST 27 ALT 24 Alkaline Phosphatase 97 Troponin I 0.038 NT-Pro-B Natriuret Pep 28857 H Total Protein 7.9 Albumin 2.7 L Globulin 5.2 H Albumin/Globulin Ratio 0.5 L Urine Color Urine Appearance Urine pH Ur Specific Zoar Urine Protein Urine Glucose (UA) Urine Ketones Urine Blood Urine Nitrite Urine Bilirubin Urine Urobilinogen Ur Leukocyte Esterase Urine WBC (Auto) Urine RBC (Auto) U Hyaline Cast (Auto) U Epithel Cells (Auto) Urine Bacteria (Auto) Nasal Screen MRSA (PCR) 11/29/19 11/29/19 11/29/19 01:15 04:10 06:33 WBC 7.42 RBC 4.51 L Hgb 12.9 L Hct 39.9 L MCV 88.5 MCH 28.6 MCHC 32.3 RDW Std Deviation 58.0 H RDW Coeff of Dwayne 18.0 H Plt Count 129 L MPV 10.6 H Immature Gran % (Auto) 0.1 Neut % (Auto) 71.2 Lymph % (Auto) 18.5 Callahan % (Auto) 8.6 Eos % (Auto) 1.3 Baso % (Auto) 0.3 Neut # (Auto) 5.28 Lymph # (Auto) 1.37 Callahan # (Auto) 0.64 H Eos # (Auto) 0.10 Baso # (Auto) 0.02 Immature Gran # (Auto) 0.01 PT INR APTT PTT Ratio Sodium Potassium Chloride Carbon Dioxide Anion Gap BUN Creatinine Est Cr Clr Drug Dosing Est GFR ( Amer) Est GFR (Non-Af Amer) BUN/Creatinine Ratio Glucose POC Glucose Estimat Average Glucose Hemoglobin A1c Calcium Magnesium Total Bilirubin AST ALT Alkaline Phosphatase Troponin I NT-Pro-B Natriuret Pep Total Protein Albumin Globulin Albumin/Globulin Ratio Urine Color Dark Yellow Urine Appearance Cloudy A Urine pH 5.0 Ur Specific Zoar 1.025 Urine Protein 2+ H Urine Glucose (UA) Negative Urine Ketones Trace H Urine Blood 1+ H Urine Nitrite Negative Urine Bilirubin 1+ H Urine Urobilinogen Negative Ur Leukocyte Esterase Negative Urine WBC (Auto) 1-5 Urine RBC (Auto) 0-4 U Hyaline Cast (Auto) 1-5 U Epithel Cells (Auto) 5-10 H Urine Bacteria (Auto) Negative Nasal Screen MRSA (PCR) Negative 11/29/19 11/29/19 11/29/19 06:33 06:33 06:33 WBC RBC Hgb Hct MCV MCH MCHC RDW Std Deviation RDW Coeff of Dwayne Plt Count MPV Immature Gran % (Auto) Neut % (Auto) Lymph % (Auto) Callahan % (Auto) Eos % (Auto) Baso % (Auto) Neut # (Auto) Lymph # (Auto) Callahan # (Auto) Eos # (Auto) Baso # (Auto) Immature Gran # (Auto) PT 20.5 H INR 2.0 H APTT PTT Ratio Sodium 139 Potassium 3.9 Chloride 108 H Carbon Dioxide 27 Anion Gap 4.0 BUN 38 H Creatinine 1.79 H Est Cr Clr Drug Dosing 37.1 Est GFR ( Amer) 38.6 Est GFR (Non-Af Amer) 33.3 BUN/Creatinine Ratio 21.1 H Glucose 112 H POC Glucose Estimat Average Glucose 126 Hemoglobin A1c 6.0 H Calcium 9.0 Magnesium 2.0 Total Bilirubin AST ALT Alkaline Phosphatase Troponin I 0.048 H* NT-Pro-B Natriuret Pep Total Protein Albumin Globulin Albumin/Globulin Ratio Urine Color Urine Appearance Urine pH Ur Specific Zoar Urine Protein Urine Glucose (UA) Urine Ketones Urine Blood Urine Nitrite Urine Bilirubin Urine Urobilinogen Ur Leukocyte Esterase Urine WBC (Auto) Urine RBC (Auto) U Hyaline Cast (Auto) U Epithel Cells (Auto) Urine Bacteria (Auto) Nasal Screen MRSA (PCR) 11/29/19 11/29/19 11/29/19 12:54 13:15 16:11 WBC RBC Hgb Hct MCV MCH MCHC RDW Std Deviation RDW Coeff of Dwayne Plt Count MPV Immature Gran % (Auto) Neut % (Auto) Lymph % (Auto) Callahan % (Auto) Eos % (Auto) Baso % (Auto) Neut # (Auto) Lymph # (Auto) Callahan # (Auto) Eos # (Auto) Baso # (Auto) Immature Gran # (Auto) PT INR APTT PTT Ratio Sodium Potassium Chloride Carbon Dioxide Anion Gap BUN Creatinine Est Cr Clr Drug Dosing Est GFR ( Amer) Est GFR (Non-Af Amer) BUN/Creatinine Ratio Glucose POC Glucose 114 H 100 H Estimat Average Glucose Hemoglobin A1c Calcium Magnesium Total Bilirubin AST ALT Alkaline Phosphatase Troponin I 0.045 NT-Pro-B Natriuret Pep Total Protein Albumin Globulin Albumin/Globulin Ratio Urine Color Urine Appearance Urine pH Ur Specific Zoar Urine Protein Urine Glucose (UA) Urine Ketones Urine Blood Urine Nitrite Urine Bilirubin Urine Urobilinogen Ur Leukocyte Esterase Urine WBC (Auto) Urine RBC (Auto) U Hyaline Cast (Auto) U Epithel Cells (Auto) Urine Bacteria (Auto) Nasal Screen MRSA (PCR) Diagnostic Findings Preliminary echocardiogram demonstrates mild diffuse LV dysfunction EF 45%, aortic sclerosis without stenosis. Mitral valve status post mitral valve clip with moderate intrinsic mitral stenosis mild mitral insufficiency
--- NOTE | 2019-11-29 19:16 | Electrocardiogram Report ---
Test Reason : Blood Pressure : / mmHG Vent. 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
[2019-11-29] MEDS: guaiFENesin 200 MG TAB PO SCH (21:20)
[2019-11-29] MEDS: CETIRIZINE HCL 10 MG TABLET PO SCH (21:20)
[2019-11-30] MEDS: guaiFENesin 200 MG TAB PO SCH ×5 (01:15→23:23)
[2019-11-30 06:03] LABS: INR 1.8 (0.9-1.1); Prothrombin Time 18.8 Seconds (9.0-12.0)
[2019-11-30] MEDS: ISOSORBIDE DINITRATE 10 MG TAB PO SCH ×2 (06:23→12:00)
--- NOTE | 2019-11-30 07:52 | XRay Report ---
XR chest 1V portable HISTORY: Shortness of breath. COMPARISON: Chest 11/29/2019. FINDINGS: No pneumothorax. The heart remains enlarged. There is diffuse interstitial thickening which is similar to the prior study. Suspect trace bilateral pleural effusions. IMPRESSION: No significant change in the cardiomegaly and diffuse interstitial thickening suggestive of pulmonary edema. ACT 112: Negative or not required by law. Electronically signed by: Eusebio Salcedo M.D. 11/30/2019 7:50 AM
[2019-11-30] MEDS: FERROUS SULFATE 325 MG TAB PO SCH (08:17)
[2019-11-30] MEDS: ATORVASTATIN 10 MG TAB PO SCH (08:17)
[2019-11-30] MEDS: INSULIN ASPART 100 UNITS/ML 3 ML PEN SC SCH ×4 (08:17→21:03)
[2019-11-30] MEDS: CHOLECALCIFEROL 1,000 UNITS 25 MCG TAB PO SCH (08:18)
[2019-11-30] MEDS: UMECLIDINIUM BROMIDE 62.5MCG/BLISTER 7 PUFFS/INHALER INH SCH (08:19)
[2019-11-30] MEDS: FUROSEMIDE 40 MG in SYRINGE 0 ML IV SCH ×2 (08:19→16:52)
[2019-11-30] MEDS: FLUTICASONE/VILANTEROL 200/25MCG 14 PUFFS/INHALER INH SCH (08:19)
[2019-11-30 09:28] LABS: BUN Creatinine Ratio 19.9 (10-20); Calcium 9.1 mg/dl (8.5-10.1); Creatinine Clr Calc Pharmacy 32.7 ml/min; Est GFR (African American) 33.6; Potassium 3.6 mmol/L (3.5-5.1)
--- NOTE | 2019-11-30 10:45 | Cardiology Progress Note ---
Date of Service November 30, 2019 Assessment & Plan (1) Combined systolic and diastolic congestive heart failure: (2) Persistent atrial fibrillation: (3) CKD (chronic kidney disease), stage III: (4) Elevated troponin: Improved but ongoing evidence of acute decompensated systolic and diastolic congestive heart failure. Continue IV diuretics another day. Supplemental potassium orally. Continue to monitor I's/O's, daily weights on the same standing scale. Daily basic metabolic panels. Atrial fibrillation. Appears persistent on chart review. Rate controlled, without need for AV anaid blockers. Intrinsic conduction system disease. Maintain telemetry. No overt indication for permanent pacemaker implantation at this point. No signs or symptoms to suggest active/acute bleeding. Continue anticoagulation (subtherapeutic INR noted this AM) 14 beat run of wide complex tachycardia in the AM of 11/29/2019. Asymptomatic. Without reocurrance. Asymptomatic. Follow electrolytes closely, supplement potassium Minimally elevated troponin. Asymptomatic. No evidence to suggest an acute coronary syndrome. Nonobstructive coronary artery disease observed via June 2019 cardiac catheterization. Continue medical management. Severe mitral regurgitation. Status post mitral valve clip in June 2019. See echo results. Mild reduction in LV systolic function. Consider addition of Hydralazine down the road. Hypertension. Blood pressure is acceptable. Follow. Dyslipidemia. History of statin intolerance. Tolerating atorvastatin. Continue low-dose atorvastatin. COPD. Suspect exacerbation is a contributing factor. Add nebulizers. As per hospitalist service. Supervising Physician Co-Signing Physician Notes Patient was seen and examined. Wheezy and somewhat short of breath today O2 sats slightly lower. Has manifested good diuresis overnight however chest x-ray continues to demonstrate interstitial edema Plan as above. In addition we will give additional dose of IV furosemide now 40 mg Supplement oxygen until clinical course improved Subjective Patient seen and examined. Chart, medications, and telemetry reviewed. Patient notes still feeling more short of breath than his norm. + Expiratory wheezing noted. + Orthopnea without PND. Peripheral edema has improved since admission but not resolved. No chest pain. No palpitations. No PND. No penile/ scrotal edema. No dizziness or near syncope. No fevers or chills. I/O's are negative 2,775 mL's overall Weight is reportedly down 4.4 kg (110.9 -> 106.5 kg) Telemetry: Atrial fibrillation in senthil 60's to 1'teens. Rare to occasional PVC. November 29, 2019 TTE Interpretation Summary ([facility], Dr. Preston): Normal size LV. Moderate concentric LVH. Mild diffuse hypokinesis of the LV with focal hypokinesis of the inferior posterior wall at the base and mid levels. EF 45- 50%. Moderate aortic valve sclerosis, without significant aortic valve stenosis. Status post mitral valve clip implantation. Leaflets are thickened with restricted leaflet mobility. Moderate intrinsic mitral valve stenosis. Mild MR. Mild TR. RVSP elevated at 30-40 mmHg. Review of Systems Review of Systems: All systems reviewed & are unremarkable except as noted in HPI & below Physical Exam Physical Exam: General: A&Ox3. Hard of hearing. NAD. Elevated BMI. HEENT: Normocephalic. Atraumatic. Conjunctiva pink, no scleral icterus. Mouth: Poor dentition. Neck: + carotid bruits. + JVD. Heart: Irregularly irregular in the 60's. Somewhat distant heart sounds, normal S-1 and S-2 no S-3 or S-4 gallop. I would not appreciate a systolic or diastolic murmur. No rubs appreciated. No RV heave. Lungs: Diffuse expiratory wheezing. Right basilar rales Abdomen: Normal bowel sounds. Soft. Nontender. No masses or organomegaly. No abdominal bruits. Extremities: Trace to 1+ pretibial edema. No clubbing, or cyanosis. Pulses: radial=2/4, posterior tibial=2/4. Neuro: No focal deficits. Results & Data Vital Signs (Past 12 Hours) Vital Signs Temp Pulse Pulse Resp BP BP Pulse Ox 11/30/19 08:00 85 11/30/19 07:51 36.5 C 71 18 125/72 93 11/30/19 04:00 36.7 C 76 19 111/59 L 11/30/19 03:14 78 14 93 11/30/19 00:00 36.7 C 69 20 128/61 Laboratory Results Laboratory Results - last 24 hr 11/29/19 11/29/19 11/29/19 04:10 12:54 13:15 PT INR Sodium Potassium Chloride Carbon Dioxide Anion Gap BUN Creatinine Est Cr Clr Drug Dosing Est GFR ( Amer) Est GFR (Non-Af Amer) BUN/Creatinine Ratio Glucose POC Glucose 114 H Calcium Troponin I 0.045 Nasal Screen MRSA (PCR) Negative 11/29/19 11/29/19 11/30/19 16:11 20:44 04:51 PT 18.8 H INR 1.8 H Sodium Potassium Chloride Carbon Dioxide Anion Gap BUN Creatinine Est Cr Clr Drug Dosing Est GFR ( Amer) Est GFR (Non-Af Amer) BUN/Creatinine Ratio Glucose POC Glucose 100 H 97 Calcium Troponin I Nasal Screen MRSA (PCR) 11/30/19 11/30/19 07:38 08:37 PT INR Sodium 139 Potassium 3.6 Chloride 105 Carbon Dioxide 27 Anion Gap 7.0 BUN 40 H Creatinine 2.01 H Est Cr Clr Drug Dosing 32.7 Est GFR ( Amer) 33.6 Est GFR (Non-Af Amer) 29.0 BUN/Creatinine Ratio 19.9 Glucose 136 H POC Glucose 93 Calcium 9.1 Troponin I Nasal Screen MRSA (PCR)
[2019-11-30] MEDS ORDERED: POTASSIUM CHLORIDE 10 MEQ TABCR PO ONE (10:57)
[2019-11-30] MEDS: IPRATROPIUM BROMIDE NEB SOLN 0.02% 2.5 ML VIAL INH SCH ×4 (11:14→23:31)
[2019-11-30] MEDS: LEVALBUTEROL HCL 0.63 MG/3 ML NEB NEB SCH ×4 (11:14→23:31)
[2019-11-30] MEDS ORDERED: FUROSEMIDE 40 MG in SYRINGE 0 ML IV ONE (14:00)
[2019-11-30] MEDS: WARFARIN SOD 2.5 MG TAB PO SCH (16:51)
[2019-11-30] MEDS ORDERED: HEPARIN 25000 UNIT/500 ML D5W IV ONE (19:29)
--- NOTE | 2019-11-30 19:50 | Hospitalist Progress Note ---
Date of Service November 30, 2019 Assessment & Plan (1) Acute on chronic diastolic CHF (congestive heart failure): Present on admission with worsening SOB CXR showed pulmonary edema pattern. Received Lasix IV 60mg in the ER Currently on Lasix 40mg IV BID, will hold tonight dose since creatinine bumped Cardiology on board Monitor I/O Repeat CXR showed no significant change in the cardiomegaly and diffuse interstitial thickening suggestive of pulmonary edema. Echo showed moderate concentric left ventricular hypertrophy. Mild diffuse hypokinesis of the left ventricle with focal hypokinesis of the inferior posterior wall at the base and mid. Ejection fraction 45 to 50% . History of sleep apnea Continue CPAP at bedtime History of chronic obstructive pulmonary disease. Continue home inhaler and duonep prn Chronic kidney disease stage III Creatinine at baseline 1.7 Creatinine increased to 2 today Will hold IV lasix for now Monitor BMP closely Diabetes Recent Hba1c 6 on 11/29/19 On Insulin sliding scale Continue monitor BS History of hypertension. BP stable Continue his home medication with isosorbide dinitrate. History of atrial fibrillation, Rate control Continue coumadin, INR 1.8 today Continue monitor PT/INR History of mitral regurgitation S/P mitral valve clip procedure at [facility] in June 2019. Echocardiogram showed moderate concentric left ventricular hypertrophy. Mild diffuse hypokinesis of the left ventricle with focal hypokinesis of the inferior posterior wall at the base and mid. Ejection fraction 45 to 50% . 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 with INR 1.8 Disposition Continue monitor in tele Admission and Anticipated Discharge Date Admission Date: November 29, 2019 Subjective Pt was seen and examined Sitting in chair with no distress Pt said that his breathing was much better yesterday Pt said that last Wednesday when he was trimming his nails, he had a small laceration on his big toe He said that this morning his big toe was bleeding Denies any chest pain, palpitation and fever Physical Exam Physical Exam: General- No acute distress Head- atraumatic Eyes- PERRL, EOMI, ENT- oropharynx clear Neck- supple, no JVD Lungs- clear to auscultation Heart- regular rhythm; no murmur Abdomen- normal bowel sounds, soft, nontender Extremities- no calf tenderness, +edema, +laceration at the tip of the big toe bellow his nail Neuro- alert, oriented x 3; PERRL, EOMI; no facial palsy; no dysarthria Skin- warm & dry Results & Data Results & Data ([facility]) Vital Signs (Past 12 Hours) Vital Signs Temp Pulse Pulse Pulse Resp BP BP 11/30/19 19:46 71 18 11/30/19 19:24 36.4 C L 84 19 133/57 L 11/30/19 15:58 87 11/30/19 15:11 74 18 11/30/19 15:04 36.5 C 72 18 135/67 11/30/19 13:09 36.4 C L 79 20 129/64 11/30/19 11:15 75 18 11/30/19 08:00 85 11/30/19 07:51 36.5 C 71 18 125/72 Pulse Ox 11/30/19 19:46 95 11/30/19 19:24 97 11/30/19 15:58 11/30/19 15:11 97 11/30/19 15:04 93 11/30/19 13:09 90 11/30/19 11:15 96 11/30/19 08:00 11/30/19 07:51 93
[2019-11-30] MEDS: CETIRIZINE HCL 10 MG TABLET PO SCH (21:02)
[2019-12-01] MEDS: IPRATROPIUM BROMIDE NEB SOLN 0.02% 2.5 ML VIAL INH SCH ×6 (02:51→22:46)
[2019-12-01] MEDS: LEVALBUTEROL HCL 0.63 MG/3 ML NEB NEB SCH ×6 (02:51→22:46)
[2019-12-01] MEDS: guaiFENesin 200 MG TAB PO SCH ×4 (06:05→23:27)
[2019-12-01] MEDS: ISOSORBIDE DINITRATE 10 MG TAB PO SCH ×2 (06:05→12:01)
[2019-12-01 06:47] LABS: Hematocrit (blood only) 39.7 % (42-52); Hemoglobin 12.9 g/dL (14.0-18.0); Mean Corpuscular Hemoglobin 28.7 pg (25-34); Mean Corpuscular Hgb Conc 32.5 g/dL (32-36); Mean Corpuscular Volume 88.2 fL (80-100); Mean Platelet Volume 10.6 fL (7.4-10.4); Platelet Count 153 K/uL (130-400); RDW Standard Deviation 57.7 fL (36.4-46.3); White Blood Count 7.03 K/uL (4.8-10.8)
[2019-12-01 06:56] LABS: INR 1.9 (0.9-1.1)
[2019-12-01 07:20] LABS: BUN Creatinine Ratio 18.8 (10-20); Calcium 8.8 mg/dl (8.5-10.1); Creatinine Clr Calc Pharmacy 28.4 ml/min; Est GFR (African American) 29.3; Est GFR (Non-African American) 25.3; Potassium 3.8 mmol/L (3.5-5.1)
[2019-12-01] MEDS: INSULIN ASPART 100 UNITS/ML 3 ML PEN SC SCH ×4 (08:38→21:02)
[2019-12-01] MEDS: CHOLECALCIFEROL 1,000 UNITS 25 MCG TAB PO SCH (08:40)
[2019-12-01] MEDS: ATORVASTATIN 10 MG TAB PO SCH (08:40)
[2019-12-01] MEDS: FERROUS SULFATE 325 MG TAB PO SCH (08:40)
[2019-12-01] MEDS: UMECLIDINIUM BROMIDE 62.5MCG/BLISTER 7 PUFFS/INHALER INH SCH (08:40)
[2019-12-01] MEDS: FLUTICASONE/VILANTEROL 200/25MCG 14 PUFFS/INHALER INH SCH (08:41)
--- NOTE | 2019-12-01 10:39 | Cardiology Progress Note ---
Date of Service December 01, 2019 Assessment & Plan (1) Combined systolic and diastolic congestive heart failure: (2) Persistent atrial fibrillation: (3) CKD (chronic kidney disease), stage III: (4) Elevated troponin: Improved signs and symptoms of decompensated systolic and diastolic congestive heart failure, nearing if not euvolemic. Discontinue IV diuretics. Resume oral furosemide at 40 mg/day. Atrial fibrillation. Appears persistent on chart review. Rate controlled, without need for AV anaid blockers. Intrinsic conduction system disease. Maintain telemetry. No overt indication for permanent pacemaker implantation at this point. No signs or symptoms to suggest active/acute bleeding. Continue anticoagulation (mildly subtherapeutic INR noted this AM) 14 beat run of wide complex tachycardia in the AM of 11/29/2019. Asymptomatic. Without reoccurrence. Minimally elevated troponin. Asymptomatic. No evidence to suggest an acute coronary syndrome. Nonobstructive coronary artery disease observed via June 2019 cardiac catheterization. Continue medical management. Severe mitral regurgitation. Status post mitral valve clip in June 2019. See echo results. Mild reduction in LV systolic function. Consider addition of Hydralazine as an outpatient.. Hypertension. Blood pressure is acceptable. Follow. Dyslipidemia. History of statin intolerance. Tolerating atorvastatin. Continue low-dose atorvastatin. COPD. Suspect exacerbation is a contributing factor. Continue nebs. As per hospitalist service. Supervising Physician Co-Signing Physician Notes Patient is a complex 89-year-old male with underlying valvular heart disease minimal coronary atherosclerosis and prior mitral valve clip presents with acute on chronic decompensated mixed systolic and diastolic heart failure. Symptoms subacute onset now responded nicely to IV diuretics. Appears much more comfortable today renal function relatively stable Plan as above resume oral diuretics Continue chronic anticoagulation Close follow-up of renal function post hospital discharge with outpatient cardiology follow-up 1 to 2 weeks time Subjective Patient seen and examined. Chart, medications, and telemetry reviewed. Patient notes feeling substantially better today as compared to yesterday significantly improved dyspnea. Cough has improved as well. No chest pain. No palpitations. No dizziness or near syncope. Continuous telemetry monitoring reveals atrial fibrillation ranging from 70 to 90 bpm. There are occasional PVCs in singles, couplets, and 1 3 beat run. I's/O's are -2 L overall. Weight is down 10.4 kg since admission, 110.9 kg to 100.5 kg. Review of Systems Review of Systems: All systems reviewed & are unremarkable except as noted in HPI & below Physical Exam Physical Exam: General: A&Ox3. Hard of hearing. NAD. Elevated BMI. HEENT: Normocephalic. Atraumatic. Conjunctiva pink, no scleral icterus. Mouth: Poor dentition. Neck: + carotid bruits. No JVD. Heart: Irregularly irregular in the 70's. Somewhat distant heart sounds, normal S-1 and S-2 no S-3 or S-4 gallop. I would not appreciate a systolic or diastolic murmur. No rubs appreciated. No RV heave. Lungs: Diminished. Decreased. No expiratory wheezing or rales appreciated this morning. Abdomen: Normal bowel sounds. Soft. Nontender. No masses or organomegaly. No abdominal bruits. Extremities: Trace to 1+ pretibial edema much more towards the lower end of the estimate. No clubbing, or cyanosis. Pulses: radial=2/4, posterior tibial=2/4. Neuro: No focal deficits. Results & Data Vital Signs (Past 12 Hours) Vital Signs Temp Pulse Pulse Pulse Resp BP BP 12/01/19 08:44 36.6 C 85 18 111/62 12/01/19 07:33 86 12/01/19 04:00 12/01/19 03:31 36.4 C L 83 18 124/52 L 12/01/19 02:52 49 L 16 12/01/19 02:51 49 L 16 11/30/19 23:31 77 16 Pulse Ox Pulse Ox 12/01/19 08:44 92 12/01/19 07:33 12/01/19 04:00 93 12/01/19 03:31 95 12/01/19 02:52 97 12/01/19 02:51 97 11/30/19 23:31 94 Laboratory Results Laboratory Results - last 24 hr 11/30/19 11/30/19 11/30/19 11:24 16:14 20:35 WBC RBC Hgb Hct MCV MCH MCHC RDW Std Deviation RDW Coeff of Dwayne Plt Count MPV PT INR Sodium Potassium Chloride Carbon Dioxide Anion Gap BUN Creatinine Est Cr Clr Drug Dosing Est GFR ( Amer) Est GFR (Non-Af Amer) BUN/Creatinine Ratio Glucose POC Glucose 102 H 109 H 115 H Calcium 12/01/19 12/01/1920 06:18 06:18 06:18 WBC 7.03 RBC 4.50 L Hgb 12.9 L Hct 39.7 L MCV 88.2 MCH 28.7 MCHC 32.5 RDW Std Deviation 57.7 H RDW Coeff of Dwayne 18.0 H Plt Count 153 MPV 10.6 H PT 19.0 H INR 1.9 H Sodium 141 Potassium 3.8 Chloride 105 Carbon Dioxide 26 Anion Gap 10.0 BUN 42 H Creatinine 2.25 H Est Cr Clr Drug Dosing 28.4 Est GFR ( Amer) 29.3 Est GFR (Non-Af Amer) 25.3 BUN/Creatinine Ratio 18.8 Glucose 86 POC Glucose Calcium 8.8 12/01/19 07:20 WBC RBC Hgb Hct MCV MCH MCHC RDW Std Deviation RDW Coeff of Dwayne Plt Count MPV PT INR Sodium Potassium Chloride Carbon Dioxide Anion Gap BUN Creatinine Est Cr Clr Drug Dosing Est GFR ( Amer) Est GFR (Non-Af Amer) BUN/Creatinine Ratio Glucose POC Glucose 100 H Calcium
[2019-12-01] MEDS: FUROSEMIDE 40 MG TAB PO SCH (12:00)
[2019-12-01] MEDS ORDERED: WARFARIN SOD 5 MG TAB PO SCH (16:00)
--- NOTE | 2019-12-01 17:59 | Hospitalist Progress Note ---
Date of Service December 01, 2019 Assessment & Plan (1) Acute on chronic diastolic CHF (congestive heart failure): Present on admission with worsening SOB CXR showed pulmonary edema pattern. Received Lasix IV 60mg in the ER Currently on Lasix 40mg IV BID, will hold tonight dose since creatinine bumped Cardiology on board Transition to oral lasix 40mg daily Monitor I/O Repeat CXR showed no significant change in the cardiomegaly and diffuse interstitial thickening suggestive of pulmonary edema. Echo showed moderate concentric left ventricular hypertrophy. Mild diffuse hypokinesis of the left ventricle with focal hypokinesis of the inferior posterior wall at the base and mid. Ejection fraction 45 to 50% Clinically improves Monitor BMP . History of sleep apnea Continue CPAP at bedtime History of chronic obstructive pulmonary disease. Continue home inhaler and duonep prn Chronic kidney disease stage III Creatinine at baseline around 2 Creatinine increased to 2.2 today Will hold IV lasix for now Monitor BMP closely Diabetes Recent Hba1c 6 on 11/29/19 On Insulin sliding scale Continue monitor BS History of hypertension. BP stable Continue his home medication with isosorbide dinitrate. History of atrial fibrillation, Rate control Continue coumadin, INR 1.9 today Continue monitor PT/INR History of mitral regurgitation S/P mitral valve clip procedure at [facility] in June 2019. Echocardiogram showed moderate concentric left ventricular hypertrophy. Mild diffuse hypokinesis of the left ventricle with focal hypokinesis of the inferior posterior wall at the base and mid. Ejection fraction 45 to 50% Status post mitral valve click implantation seen on echo. Leaflets are thickened with restriction in leaflet mobility. There is moderate intrinsic mitral valve stenosis. Mild mitral valve regurgitation Case discussed with his supervisor dental laboratory at [facility] Dr. Tamar Crews about the echo. Recommended to continue medical management for the CHF base on the echo finding 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 with INR 1.9 Disposition Continue monitor in tele Admission and Anticipated Discharge Date Admission Date: November 29, 2019 Subjective Pt was seen and examined Sitting in chair with no distress Pt said that he feels much better today Daughter at bedside and provided updates on the patient Denies any chest pain, palpitation, dizziness and SOB Physical Exam Physical Exam: General- No acute distress Head- atraumatic Eyes- PERRL, EOMI, ENT- oropharynx clear Neck- supple, no JVD Lungs- clear to auscultation Heart- regular rhythm; no murmur Abdomen- normal bowel sounds, soft, nontender Extremities- no calf tenderness, +edema, +laceration at the tip of the big toe bellow his nail Neuro- alert, oriented x 3; PERRL, EOMI; no facial palsy; no dysarthria Skin- warm & dry Results & Data Results & Data ([facility]) Vital Signs (Past 12 Hours) Vital Signs Temp Pulse Pulse Pulse Resp BP BP 12/01/19 15:50 36.4 C L 85 18 130/72 12/01/19 15:44 73 18 12/01/19 11:58 36.4 C L 80 18 126/72 12/01/19 08:44 36.6 C 85 18 111/62 12/01/19 07:33 86 Pulse Ox 12/01/19 15:50 97 12/01/19 15:44 92 12/01/19 11:58 96 12/01/19 08:44 92 12/01/19 07:33
[2019-12-01] MEDS: CETIRIZINE HCL 10 MG TABLET PO SCH (20:29)
[2019-12-02] MEDS: LEVALBUTEROL HCL 0.63 MG/3 ML NEB NEB SCH ×3 (03:38→11:15)
[2019-12-02] MEDS: IPRATROPIUM BROMIDE NEB SOLN 0.02% 2.5 ML VIAL INH SCH ×3 (03:38→11:15)
[2019-12-02] MEDS: guaiFENesin 200 MG TAB PO SCH ×2 (05:40→11:56)
[2019-12-02 07:51] LABS: INR 1.9 (0.9-1.1); Prothrombin Time 19.4 Seconds (9.0-12.0)
[2019-12-02] MEDS: FUROSEMIDE 40 MG TAB PO SCH (08:14)
[2019-12-02] MEDS: FERROUS SULFATE 325 MG TAB PO SCH (08:15)
[2019-12-02] MEDS: ISOSORBIDE DINITRATE 10 MG TAB PO SCH ×2 (08:15→11:56)
[2019-12-02] MEDS: CHOLECALCIFEROL 1,000 UNITS 25 MCG TAB PO SCH (08:15)
[2019-12-02] MEDS: ATORVASTATIN 10 MG TAB PO SCH (08:16)
[2019-12-02] MEDS: FLUTICASONE/VILANTEROL 200/25MCG 14 PUFFS/INHALER INH SCH (08:16)
[2019-12-02] MEDS: UMECLIDINIUM BROMIDE 62.5MCG/BLISTER 7 PUFFS/INHALER INH SCH (08:16)
[2019-12-02] MEDS: INSULIN ASPART 100 UNITS/ML 3 ML PEN SC SCH ×2 (08:17→11:49)
[2019-12-02 09:26] LABS: BUN Creatinine Ratio 21.8 (10-20); Creatinine Clr Calc Pharmacy 28.8 ml/min; Est GFR (African American) 29.8; Est GFR (Non-African American) 25.7; Potassium 3.9 mmol/L (3.5-5.1)
--- NOTE | 2019-12-02 12:23 | Hospitalist Progress Note ---
Date of Service December 02, 2019 Assessment & Plan (1) Combined systolic and diastolic congestive heart failure: Present on admission with worsening SOB CXR showed pulmonary edema pattern. Received Lasix IV 60mg in the ER Currently on Lasix 40mg IV BID, will hold tonight dose since creatinine bumped Cardiology on board Transition to oral lasix 40mg daily Monitor I/O Repeat CXR showed no significant change in the cardiomegaly and diffuse interstitial thickening suggestive of pulmonary edema. Echo showed moderate concentric left ventricular hypertrophy. Mild diffuse hypokinesis of the left ventricle with focal hypokinesis of the inferior posterior wall at the base and mid. Ejection fraction 45 to 50% Case discussed with cardiology and ok from cardiology standpoint to discharge Clinically improves significantly Follow up with cardiology in 1-2 weeks Check BMP within 1 week . History of sleep apnea Continue CPAP at bedtime History of chronic obstructive pulmonary disease. Continue home inhaler and duonep prn Chronic kidney disease stage III Creatinine at baseline around 1.7 to 2 Creatinine increased to 2.2 today Will monitor renal function while on lasix Check BMP within 1 week Diabetes Recent Hba1c 6 on 11/29/19 On Insulin sliding scale Continue monitor BS History of hypertension. BP stable Continue his home medication with isosorbide dinitrate. History of atrial fibrillation, Rate control Continue coumadin, INR 1.9 today Continue monitor PT/INR Follow up with the coumadin clinic History of mitral regurgitation S/P mitral valve clip procedure at [facility] in June 2019. Echocardiogram showed moderate concentric left ventricular hypertrophy. Mild diffuse hypokinesis of the left ventricle with focal hypokinesis of the inferior posterior wall at the base and mid. Ejection fraction 45 to 50% Status post mitral valve click implantation seen on echo. Leaflets are thickened with restriction in leaflet mobility. There is moderate intrinsic mitral valve stenosis. Mild mitral valve regurgitation Case discussed with his cd storage and materials make up helper at [facility] Dr. Tamar Crews about the echo. Recommended to continue medical management for the CHF base on the echo finding 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 with INR 1.9 Disposition Discharge home today Admission and Anticipated Discharge Date Admission Date: November 29, 2019 Subjective Pt was seen and examined. Sitting in bed with no distress Pt said that he feels much better compare to when he came to the ER He said that he would like to go home today since he is doing better Spoke to daughter today and provided with update Denies any chest pain, palpitation, dizziness and SOB Physical Exam Physical Exam: General- No acute distress Head- atraumatic Eyes- PERRL, EOMI, ENT- oropharynx clear Neck- supple, no JVD Lungs- clear to auscultation Heart- regular rhythm; no murmur Abdomen- normal bowel sounds, soft, nontender Extremities- no calf tenderness, +edema, +laceration at the tip of the big toe bellow his nail Neuro- alert, oriented x 3; PERRL, EOMI; no facial palsy; no dysarthria Skin- warm & dry Results & Data Results & Data ([facility]) Vital Signs (Past 12 Hours) Vital Signs Temp Pulse Pulse Pulse Resp BP BP 12/02/19 11:40 36.4 C L 71 18 116/71 12/02/19 11:17 71 16 12/02/19 08:00 78 12/02/19 07:55 36.6 C 82 18 145/75 H 12/02/19 07:36 68 20 12/02/19 03:40 71 23 12/02/19 03:22 36.6 C 78 16 136/73 Pulse Ox 12/02/19 11:40 95 12/02/19 11:17 96 12/02/19 08:00 12/02/19 07:55 93 12/02/19 07:36 95 12/02/19 03:40 93 12/02/19 03:22 93
--- NOTE | 2019-12-04 08:40 | Discharge Summary ---
Date of Service December 02, 2019 Admission HPI Per Admitting Provider CHIEF COMPLAINT: Shortness of breath. HISTORY OF PRESENT ILLNESS: This is an 89-year-old male with past medical history significant for type 2 diabetes, not on any medication currently, hyperlipidemia, COPD, sleep apnea, on CPAP, abdominal aortic aneurysm status post repair, chronic diastolic CHF, history of paroxysmal atrial fibrillation, history of tachybrady syndrome, chronic kidney disease stage III, history of chronic urticaria, history of CVA, history of severe mitral regurgitation, status post mitral valve clip procedure done at [facility] on 07/13/2019, who presents with shortness of breath. As per daughter who works in healthcare, the patient lives alone, son lives next door and daughter lives close by. The patient is usually active. He takes care of himself. In August, he fell from a chair and he had some bruises, no broken bones, but since then he is developing shortness of breath and he saw his family doctor. A chest x-ray was done on 11/09/19which showed some pulmonary congestions and currently he is taking Lasix every day 40 mg. The patient today mowed grass, but when he went to sleep, he was feeling short of breath, not feeling well, so he was brought in here. His chest x-ray showed pulmonary congestion and lower extremity edema. He was given a dose of IV, 60 mg of Lasix, He is still feeling short of breath, but he is able to talk in full sentences. Very hard of hearing. Daughter helped with most of the history. He has a chronic cough. Once in a while he gets phlegm. Denies any fever, chills. No chest pain, no abdominal pain, no nausea, no headache. No blurred visions. No earache. He has runny nose from his allergies. No sore throat, no difficulty swallowing. He is on regular diet. Appetite is okay. Normal bowel and bladder movements. No rash anywhere. Afebrile. Admission Exam Per Admitting Provider GENERAL: The patient is old, but not in acute distress. VITAL SIGNS: Temperature 36.4, pulse 86, respiratory rate 16, blood pressure 137/63, oxygen 95% on room air. HEENT: No pallor, no icterus. Pupils equal, round, and reactive to light. NECK: No JVD, no neck masses, no carotid bruits. CARDIOVASCULAR: S1, S2 heard, regular rate and rhythm, no murmur, no gallop. RESPIRATORY SYSTEM: Normal AP diameter. No accessory muscle use. No wheezing. Diminished breath sounds. Mild bibasilar crackles. ABDOMEN: Soft, bowel sounds present, nontender. No distention. CENTRAL NERVOUS SYSTEM: Cranial nerves II-XII grossly intact. Nonfocal. EXTREMITIES: Bilateral lower extremity, +2 edema present, no erythema seen. Principal Diagnosis Combined systolic and diastolic congestive heart failure: History of sleep apnea History of chronic obstructive pulmonary disease. Chronic kidney disease stage III Diabetes History of hypertension. History of atrial fibrillation, History of mitral regurgitation CAD Discharge Exam General- No acute distress Head- atraumatic Eyes- PERRL, EOMI, ENT- oropharynx clear Neck- supple, no JVD Lungs- clear to auscultation Heart- regular rhythm; no murmur Abdomen- normal bowel sounds, soft, nontender Extremities- no calf tenderness, +edema, +laceration at the tip of the big toe bellow his nail Neuro- alert, oriented x 3; PERRL, EOMI; no facial palsy; no dysarthria Skin- warm & dry Discharge Data Allergies Allergy/AdvReac Type Severity Reaction Status Date / Time aspirin Allergy Intermediate HIVES Verified 11/29/19 01:43 levofloxacin [From Levaquin] AdvReac Severe Delirium Verified 11/29/19 01:43 oxycodone AdvReac Mild INTOLERATE Verified 11/29/19 01:43 TO PERCOCET OR OXYCONTIN Consultations 11/29/19 01:50 ED Decision to Admit Stat 11/29/19 04:15 Consult Case Management - Discharge Planning Routine 11/29/19 08:00 Consult Cardiology Routine Ordered Studies XR chest 1V portable CLINICAL HISTORY: Dyspnea COMPARISON STUDY: 03/31/2019 FINDINGS: The heart is enlarged. There is diffuse elevation of interstitium likely secondary to pulmonary edema. There is blunting of the lateral cost ophrenic angles suggesting small effusions.[ IMPRESSION: Pulmonary edema pattern. Clinical and radiographic follow-up is recommended. ACT 112: Negative or not required by law. Electronically signed by: Warner Parker M.D. 11/29/2019 7:03 AM Dictated: 11/29/19701 Transcribed: 11/29/19701 XR chest 1V portable HISTORY: Shortness of breath. COMPARISON: Chest 11/29/2019. FINDINGS: No pneumothorax. The heart remains enlarged. There is diffuse interstitial thickening which is similar to the prior study. Suspect trace bilateral pleural effusions. IMPRESSION: No significant change in the cardiomegaly and diffuse interstitial thickening suggestive of pulmonary edema. ACT 112: Negative or not required by law. Electronically signed by: Eusebio Salcedo M.D. 11/30/2019 7:50 AM Dictated: 11/30/19 0750 Transcribed: 11/30/19 0750 Hospital Course (1) Combined systolic and diastolic congestive heart failure: Present on admission with worsening SOB CXR showed pulmonary edema pattern. Received Lasix IV 60mg in the ER Currently on Lasix 40mg IV BID, will hold tonight dose since creatinine bumped Cardiology on board Transition to oral lasix 40mg daily Monitor I/O Repeat CXR showed no significant change in the cardiomegaly and diffuse interstitial thickening suggestive of pulmonary edema. Echo showed moderate concentric left ventricular hypertrophy. Mild diffuse hypokinesis of the left ventricle with focal hypokinesis of the inferior posterior wall at the base and mid. Ejection fraction 45 to 50% Case discussed with cardiology and ok from cardiology standpoint to discharge Clinically improves significantly Follow up with cardiology in 1-2 weeks Check BMP within 1 week . History of sleep apnea Continue CPAP at bedtime History of chronic obstructive pulmonary disease. Continue home inhaler and duonep prn Chronic kidney disease stage III Creatinine at baseline around 1.7 to 2 Creatinine increased to 2.2 today Will monitor renal function while on lasix Check BMP within 1 week Diabetes Recent Hba1c 6 on 11/29/19 On Insulin sliding scale Continue monitor BS History of hypertension. BP stable Continue his home medication with isosorbide dinitrate. History of atrial fibrillation, Rate control Continue coumadin, INR 1.9 today Continue monitor PT/INR Follow up with the coumadin clinic History of mitral regurgitation S/P mitral valve clip procedure at [facility] in June 2019. Echocardiogram showed moderate concentric left ventricular hypertrophy. Mild diffuse hypokinesis of the left ventricle with focal hypokinesis of the inferior posterior wall at the base and mid. Ejection fraction 45 to 50% Status post mitral valve click implantation seen on echo. Leaflets are thickened with restriction in leaflet mobility. There is moderate intrinsic mitral valve stenosis. Mild mitral valve regurgitation Case discussed with his hand inspector at [facility] [facility] about the echo. Recommended to continue medical management for the CHF base on the echo finding 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 with INR 1.9 Disposition Discharge home today Total Time Total Time Spent Total Time Spent (In Minutes): 35 minutes Total Time Includes: Examination of the Patient, Discharge Planning, Medication Reconciliation, Communication With Other Providers and Other Discharge Plan Discharge Items Patient Disposition: Home - Self-Care Reason For Visit: SOB Discharge Diagnosis: Combined systolic and diastolic congestive heart failure History of atrial fibrillation History of Mitral valve regurgitation Chronic kidney disease Activity: Resume your previous activity Non-emergency contact: Primary Care Provider and Quality Control Tester Call non-emergency contact if: you have any medication questions Follow-up/Referrals: Felix Wheeler MD [Primary Care Provider] - Diet: Heart Healthy Addtl Attending Provider Instructions: Follow up with primary care provider Dr. Villarreal (Dr. Banegas colleague) on 12/05 @ 10 AM Follow up with cardiology in 1 to 2 weeks (Office will call you with the appointment) Follow up with the coumadin clinic to monitor PT/INR Check BMP within 1 week to monitor kidney function and electrolytes You will need to follow up with podiatry to get your nail trim Continue wound care and keep area clean Follow up with the wound care clinic if the wound get worst Fall precaution Pending Studies at Discharge: No Stand-Alone Forms: My [employer], Smoking Cessation Medications and DC Order Prescriptions: New guaifenesin 200 mg Tablet 200 mg PO Q8H PRN (Reason: cough) Qty: 15 RF: 0 Continued atorvastatin 10 mg tablet 10 mg PO QAM RF: 0 warfarin 5 mg tablet 5 mg PO 3XWK RF: 0 warfarin 5 mg tablet 2.5 mg PO 4XWK RF: 0 fluticasone propion-salmeterol [Advair Diskus] 500-50 mcg/dose blister with device 1 inh inhalation BID RF: 0 Spiriva with HandiHaler 18 mcg capsule, w/inhalation device 1 cap inhalation QAM RF: 0 cetirizine 5 mg Tablet 5 mg PO HS RF: 0 albuterol sulfate [Ventolin HFA] 90 mcg/actuation Hfa Aerosol Inhaler 1 puff INHALATION Q6H PRN (Reason: Shortness Of Breath) RF: 0 hydroxyzine HCl 10 mg Tablet 10 mg PO QID PRN (Reason: Itching) RF: 0 cholecalciferol (vitamin D3) 5,000 unit Tablet 5,000 unit PO DAILY RF: 0 isosorbide dinitrate 10 mg Tablet 10 mg PO BID@0700,1200 Qty: 30 RF: 0 ferrous sulfate [iron] 325 mg (65 mg iron) Tablet 325 mg PO DAILY RF: 0 Changed furosemide [Lasix] 40 mg tablet 40 mg PO DAILY Qty: 10 RF: 0 Discharge Orders: Discharge Order (Routine); Ordered 12/02/19 Ordered By: Ronda Ivy/Other Patient Handouts: Diabetes and Heart Disease, Coping with Heart Failure, Eating Heart-Healthy Foods, Heart Failure Admission Data Admit Date/Time: 11/29/19 03:20 Attending Provider: Ronda Oates Admit Provider: Kenny Parker Primary Care Provider: Felix Wheeler Other Providers: Kenny Parker ; Shemar Nesbitt ; Dustin Baig ; Kingsley Preston ; Diego Sherman ; Fabrice Breen ; Steve Gold ; Corina Erazo ; Hanna See ; Fidel Jean Other Interventions: Discharge Summary Assessment (RN) Last Done: 12/02/19 13:08 DC Date/Time DO NOT enter until pt leaves facility: 12/02/19 13:53
== END 2019-12-02 13:53 | disposition home or self-care (01) ==
LOC: ED 00:04 → 1E 03:20 → INTOOBSV 03:20 → 1E 03:48 → 2S 11-30 06:43

== ENCOUNTER 2020-04-13 15:45 | Inpatient (IN) ==
[2020-04-13] MEDS ORDERED: DEXAMETHASONE SOD INJ 10 MG/ML VIAL IV ONE (16:06)
[2020-04-13] MEDS ORDERED: ALBUT/IPRATROP 3MG/0.5MG NEB 3 ML VIAL NEB STA (16:06)
--- NOTE | 2020-04-13 16:10 | Emergency Department Note ---
Impression & Plan Acute congestive heart failure, Pulmonary edema, Acute hypokalemia ED Provider Note Name: RIVER GUTIERREZ Age: 89 Sex: M Arrives Via: Ambulance Informant: Patient, Son, Chart ED Provider: Reid Null MD Chief Complaint: Shortness of breath Impression: Acute congestive heart failure Pulmonary Edema Acute Hypokalemia Medical Decision Makin yr old male with long history COPD, CAD, CHF, Afib, DMII, amongst others arrives with acutely worsening shortness of breath. Vitals OK though he is dyspneic with bilateral lower wheezing and crackles.2+ edema in legs. Given wheezing neb ordered along with steroids and work-up including CXR, labs, EKG. EKG with mild prolongation of intraventricular block and more irregular than previous Afib EKG. No chest pain and currently trop similar to baseline thus seems unlikely ACS and already on coumadin thus no need to start anticoagulation at present. CXR with pulmonary edema and BNP severely elevated from his baseline. Seems he is getting to uncompensated heart failure though not yet hypoxic. Renal failure chronic and thus will go ahead with IV lasix and add in K for hypokalemia. Covid testing negative and patient comfortable. I reviewed case with [facility] Hospitalist who agrees with bringing in for further management. Patient and son comfortable with plan. Of note, after consulting hospitalist patient's son noted strong urine when pt cathed thus UA added on to orders and hospitalist made aware. Prior Medical Record and Triage/Nursing Notes reviewed by Me Additional history obtained from son and chart Differentials:Reactive airway disease, pneumonia, pneumothorax, COPD, CHF, infections, cardiac ischemia, pulmonary embolism, musculoskeletal, gastrointestinal, as well as other pathologies. Vital Signs: reviewed and remarkable for no significant abnormalities Interventions: Duoneb, Decadron IV, Lasix 40mg IV, K rider 10meq IV Labs:Reviewed and remarkable for elevated BNP, baseline Cr elevation, trop elevation baseline Imaging:X ray results are stated below per my interpretation: Chest: 1 view: Pulmonary Edema EKG:Per My Interpretation: Indication SHOB: Afib 88 bpm with frequent PVCs, RBBB and no clear evidence ischemia. Compared to EKG 11/29/19 RBBB is new. Cardiac/Tele Monitoring: Cardiac Monitoring: An Order was placed for continuous cardiac monitoring. The monitor shows a rate of 80 with an afib rhythm. Consults:Dr Monik French Hospitalist Plan: Disposition:Hospitalization. Condition: Fair Prescriptions:none PDMP: n/a History of Present Illness:89 yr old male arrives for evaluation of shortness of breath. He notes many years of shortness of breath due to lung and heart issues. Admits the last few days increasing shortness of breath along with cough. Mildly productive cough. No fevers, chest pain, syncope, leg swelling, calf pain, abdominal pain, back pain, nausea, vomiting, urinary/bowel symptoms nor other symptoms. Takes his daily medications but no new meds. Denies recent steroid nor abx use. Denies trauma/falls. Exertion makes worse, rest makes better. Chronically on NC O2 at home. Denies any sick contacts and states he doesn't know what COVID is. ROS: See above HPI for pertinent positives & negatives. A total of 10 systems reviewed and were otherwise negative. Past Medical History:COPD, DLP, Allergies, Anemia, Heart failure, Afib, CAD, CVA, DMII, CKD Past Surgical History:AAA repair, knee surgery Family History:Thyroid disorder Social History:Former, , lives alone, no etoh Home Medications:See Below Allergies:asa, levoquin, oxy ir Vitals:Blood Pressure: 124/75, Pulse 90, RR 16, T 36.6C, O2 97% on 2L NC Physical Exam: GENERAL: Patient is elderly and chronically unwell appearing and in no acute distress. EYES: No scleral icterus, unremarkable pupils. ENT: Mucous membranes moist, no nasal congestion. NECK: No masses appreciated, nomeningismus, trachea is midline. RESPIRATORY: Mild Dyspnea with bilateral lower lobe wheezing, equal bilaterally and crackles CARDIOVASCULAR: Irregular.No murmurs, rubs, gallops appreciated. GASTROINTESTINAL: Abdomen soft, non-tender, no peritonitis.Bowel sounds positive.No masses appreciated. BACK: No midline tenderness, no CVA tenderness EXTREMITIES: Normal motion all extremities, no cyanosis, 2+ bilateral lower leg edema without TTP calves NEUROLOGIC: Alert and oriented, no acute motor or sensory deficits, no focal weakness, cranial nerves grossly intact. SKIN: No rash, no jaundice, no diaphoresis. 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 Coronary artery disease nonobstructive per cath [facility] Jun 2019 Diabetes mellitus type 2 with complications Diabetic neuropathy Do not resuscitate status POLST 2016 Dyslipidemia Mitral valve regurgitation Nonsustained ventricular tachycardia Sleep apnea Tachy-zaid syndrome Surgical History (Updated 04/13/20 @ 20:56 by oRlando Ruggiero MD) Status post abdominal aortic aneurysm repair " 2012 [facility]" Status post cardiac catheterization [facility] Jun 2019- nonobstructive disease [30% LAD, 50% 2nd diag, 30% circ, 30% RCA] Status post mitral valve repair Status post total knee replacement Family History (Updated 04/13/20 @ 20:57 by Rolando Ruggiero MD) Mother Thyroid disorder Father Colorectal cancer Social History Smoking Status: Former smoker Years Smoked: 51; Hx Alcohol Use: No Hx Substance Use: No Preferred Language: Turkmen Communication Ability: Effective Medical Clinic Manager Required: No Beliefs That Will Affect Care: None marital status: / marital status details: in October 2017 Current Living Situation: Alone Other Information That Helps Us Care for You: No Feels Safe at Home: Yes Safety Concerns: Feels Safe At This Time Assistive Devices: Glasses and Oxygen - Continuous Allergies Allergies Allergy/AdvReac Type Severity Reaction Status Date / Time aspirin Allergy Intermediate HIVES Verified 04/13/20 18:09 levofloxacin [From Levaquin] AdvReac Severe Delirium Verified 04/13/20 18:09 oxycodone AdvReac Mild INTOLERATE Verified 04/13/20 18:09 TO PERCOCET OR OXYCONTIN Home Meds Home Medications Medication Instructions Recorded Confirmed Spiriva with HandiHaler 1 cap INHALATION QAM 03/27/19 04/13/20 albuterol sulfate [Ventolin HFA] 1 puff INHALATION Q6H PRN 03/27/19 04/13/20 atorvastatin 10 mg PO QAM 03/27/19 04/13/20 cetirizine 5 mg PO HS 03/27/19 04/13/20 fluticasone propion-salmeterol 1 inh INHALATION BID 03/27/19 04/13/20 [Advair Diskus] hydroxyzine HCl 10 mg PO QID PRN 03/27/19 04/13/20 warfarin See Rx Instructions .ROUTE .COMPLEX 03/27/19 04/13/20 ferrous sulfate [iron] 325 mg PO DAILY 11/29/19 04/13/20 furosemide [Lasix] See Rx Instructions .ROUTE .COMPLEX 04/13/20 04/13/20 Previous Rx's Medication Instructions Recorded isosorbide dinitrate 10 mg PO BID@0700,1200 #30 tab 03/31/19 Results & Data (ED) Vital Signs Vital Signs - 24 hr 04/13/20 15:22 04/13/20 15:28 04/13/20 16:01 Temperature 36.6 C Temperature Source Oral Pulse Rate 90 79 Pulse Rate [Apical] Pulse Rate from SpO2 Sensor 83 Pulse Rhythm Irregular Pulse Strength Normal Respiratory Rate 16 21 Respiratory Effort / Characteristics Labored Blood Pressure 124/75 139/87 Blood Pressure Mean 91 115 Blood Pressure Position Lying Pulse Oximetry 97 97 95 Oxygen Delivery Method Nasal Cannula Nasal Cannula Oxygen Flow Rate 2 2 Sepsis Recent Fever Within 48 Hours No Sepsis New/Unexplained Change in Mental Status N/A Sepsis Action Taken by Nursing No Action Required 04/13/20 16:05 04/13/20 16:30 04/13/20 16:31 Temperature Temperature Source Pulse Rate 79 81 74 Pulse Rate [Apical] Pulse Rate from SpO2 Sensor 88 84 86 Pulse Rhythm Pulse Strength Respiratory Rate 22 17 Respiratory Effort / Characteristics Blood Pressure 131/73 Blood Pressure Mean 80 Blood Pressure Position Pulse Oximetry 98 97 98 Oxygen Delivery Method Oxygen Flow Rate Sepsis Recent Fever Within 48 Hours Sepsis New/Unexplained Change in Mental Status Sepsis Action Taken by Nursing 04/13/20 17:00 04/13/20 17:01 04/13/20 17:05 Temperature Temperature Source Pulse Rate 75 87 Pulse Rate [Apical] 83 Pulse Rate from SpO2 Sensor 81 88 Pulse Rhythm Pulse Strength Respiratory Rate 18 12 16 Respiratory Effort / Characteristics Non-Labored Spontaneous Blood Pressure 136/84 Blood Pressure Mean 102 Blood Pressure Position Pulse Oximetry 98 98 97 Oxygen Delivery Method Nasal Cannula Oxygen Flow Rate 2 Sepsis Recent Fever Within 48 Hours Sepsis New/Unexplained Change in Mental Status Sepsis Action Taken by Nursing 04/13/20 17:30 04/13/20 17:31 04/13/20 18:00 Temperature Temperature Source Pulse Rate 88 75 102 H Pulse Rate [Apical] Pulse Rate from SpO2 Sensor 99 H 88 116 H Pulse Rhythm Pulse Strength Respiratory Rate 17 22 23 Respiratory Effort / Characteristics Blood Pressure 129/77 Blood Pressure Mean 86 Blood Pressure Position Pulse Oximetry 95 97 85 L Oxygen Delivery Method Oxygen Flow Rate Sepsis Recent Fever Within 48 Hours Sepsis New/Unexplained Change in Mental Status Sepsis Action Taken by Nursing Laboratory Data Result diagrams: 04/13/20 16:33 04/13/20 16:33 Lab Results 04/13/20 04/13/20 04/13/20 Range/Units 16:33 16:33 16:33 WBC 7.11 (4.8-10.8) K/uL RBC 4.70 (4.7-6.1) M/uL Hgb 14.3 (14.0-18.0) g/dL Hct 43.7 (42-52) % MCV 93.0 (80-100) fL MCH 30.4 (25-34) pg MCHC 32.7 (32-36) g/dL RDW Std Deviation 60.9 H (36.4-46.3) fL RDW Coeff of Dwayne 18.6 H (11.5-14.5) % Plt Count 89 L (130-400) K/uL MPV 12.6 H (7.4-10.4) fL Immature Gran % (Auto) 0.1 % Neut % (Auto) 68.3 % Lymph % (Auto) 21.1 % [place] % (Auto) 8.6 % Eos % (Auto) 1.8 % Baso % (Auto) 0.1 % Neut # (Auto) 4.85 (1.4-6.5) K/uL Lymph # (Auto) 1.50 (1.2-3.4) K/uL [place] # (Auto) 0.61 H (0.11-0.59) K/uL Eos # (Auto) 0.13 (0-0.5) K/uL Baso # (Auto) 0.01 (0-0.2) K/uL Immature Gran # (Auto) 0.01 (0.00-0.02) K/uL Platelet Estimate Decreased L (Normal) Ovalocytes 1+ Echinocytes 1+ PT 31.6 H (9.0-12.0) Seconds INR 3.2 H (0.9-1.1) Sodium 140 (136-145) mmol/L Potassium 2.8 L (3.5-5.1) mmol/L Chloride 102 (98-107) mmol/L Carbon Dioxide 28 (21-32) mmol/L Anion Gap 10.0 (3-11) BUN 42 H (7-18) mg/dl Creatinine 2.16 H (0.6-1.4) mg/dl Est Cr Clr Drug Dosing 29.6 ml/min Est GFR ( Amer) 30.8 Est GFR (Non-Af Amer) 26.6 BUN/Creatinine Ratio 19.3 (10-20) Glucose 117 H (70-99) mg/dl Calcium 9.3 (8.5-10.1) mg/dl Magnesium 1.9 (1.8-2.4) mg/dl Troponin I 0.070 H* (0-0.045) ng/ml NT-Pro-B Natriuret Pep 11914 H (0-1800) pg/ml Administered Medications Cetirizine HCl (Cetirizine Hcl 10 Mg Tablet) 5 mg PO HS SETH Stop: 05/13/20 20:59 Last Admin: 04/13/20 20:38 Dose: 5 mg Documented by: [id number] Discontinued Medications Albuterol (Albut/Ipratrop 3mg/0.5mg Neb 3 Ml Vial) 6 ml NEB NOW STA Stop: 04/13/20 16:07 Last Admin: 04/13/20 17:03 Dose: 6 ml Documented by: [id number] Dexamethasone (Dexamethasone Sod Inj 10 Mg/Ml Vial) 10 mg IV NOW ONE Stop: 04/13/20 16:07 Last Admin: 04/13/20 16:42 Dose: 10 mg Documented by: [id number] Furosemide (Furosemide 40 Mg/4 Ml Vial) 40 mg IV NOW STA Stop: 04/13/20 17:38 Last Admin: 04/13/20 18:12 Dose: 40 mg Documented by: [id number] Potassium Chloride (K Davy / Wtr) 10 meq in 100 mls @ 100 mls/hr IV ONE ONE Stop: 04/13/20 18:36 Last Infusion: 04/13/20 20:32 Dose: 0 mls/hr Documented by: [id number] Admin: 04/13/20 18:12 Dose: 100 mls/hr Documented by: [id number] Potassium Chloride (Potassium Chloride Crtab 20 Meq Tabcr) 20 meq PO NOW ONE Stop: 04/13/20 19:52 Last Admin: 04/13/20 20:39 Dose: 20 meq Documented by: [id number] Discharge Plan Visit Data Chief Complaint: Shortness of Breath/Dyspnea Stated Complaint: SOB ED Provider: Reid Null Discharge Problem: Acute congestive heart failure, Pulmonary edema, Acute hypokalemia Patient Disposition: Admitted As Inpatient Discharge Instructions Interventions: ED Discharge Assessment Last Done: 04/13/20 20:01 Discharge Problem: Acute congestive heart failure Qualifiers: Heart failure type: systolic Qualified Code(s): I50.21 - Acute systolic (congestive) heart failure Pulmonary edema Qualifiers: Chronicity: acute Qualified Code(s): J81.0 - Acute pulmonary edema
[2020-04-13 16:48] LABS: Mean Corpuscular Hgb Conc 32.7 g/dL (32-36)
[2020-04-13 16:57] LABS: INR 3.2 (0.9-1.1); Prothrombin Time 31.6 Seconds (9.0-12.0)
[2020-04-13 17:01] LABS: Hematocrit (blood only) 43.7 % (42-52); Hemoglobin 14.3 g/dL (14.0-18.0); Mean Corpuscular Hemoglobin 30.4 pg (25-34); RDW Coefficient of Variation 18.6 % (11.5-14.5); RDW Standard Deviation 60.9 fL (36.4-46.3); White Blood Count 7.11 K/uL (4.8-10.8)
--- NOTE | 2020-04-13 17:06 | XRay Report ---
XR chest 1V portable HISTORY: 89 years-old Male shob acute shortness of breath COMPARISON: Chest radiograph 11/30/2019 TECHNIQUE: Portable AP view of the chest FINDINGS: Cardiac silhouette is enlarged, unchanged. Calcified plaque of the thoracic aorta. Pulmonary vascular congestion with bilateral reticular opacities redemonstrated. Bibasilar airspace opacities with smal l right and trace left pleural effusions. Degenerative changes of the shoulders and spine. IMPRESSION: 1. Cardiomegaly with pulmonary edema. 2. Right greater than left bibasilar opacities suggest atelectasis versus pneumonitis. 3. Trace left and small right pleural effusions. ACT 112: Negative or not required by law. The above report was generated using voice recognition software. It may contain grammatical, syntax o r spelling errors. Electronically signed by: Elan Colon M.D. 04/13/2020 5:05 PM
[2020-04-13 17:12] LABS: BUN Creatinine Ratio 19.3 (10-20); Calcium 9.3 mg/dl (8.5-10.1); Creatinine Clr Calc Pharmacy 29.6 ml/min; Est GFR (African American) 30.8; Est GFR (Non-African American) 26.6; Magnesium 1.9 mg/dl (1.8-2.4); Mean Platelet Volume 12.6 fL (7.4-10.4); Platelet Count 89 K/uL (130-400); Potassium 2.8 mmol/L (3.5-5.1)
[2020-04-13 17:13] LABS: Basophils # (auto) 0.01 K/uL (0-0.2); Basophils % (auto) 0.1 %; Echinocytes 1+; Eosinophils # (auto) 0.13 K/uL (0-0.5); Eosinophils % (auto) 1.8 %; Immature Granulocytes # (auto) 0.01 K/uL (0.00-0.02); Immature Granulocytes % (auto) 0.1 %; Lymphocytes % (auto) 21.1 %; Monocytes # (auto) 0.61 K/uL (0.11-0.59); Monocytes % (auto) 8.6 %; Neutrophils # (auto) 4.85 K/uL (1.4-6.5); Neutrophils % (auto) 68.3 %; Ovalocytes 1+; Platelet Estimate Decreased (Normal)
[2020-04-13 17:33] LABS: Troponin I 0.07 ng/ml (0-0.045)
[2020-04-13] MEDS ORDERED: FUROSEMIDE 40 MG/4 ML VIAL IV STA (17:37)
[2020-04-13] MEDS ORDERED: POTASSIUM CHLORIDE / WTR 10 MEQ/100 ML PLCT IV ONE (17:37)
--- NOTE | 2020-04-13 18:02 | History & Physical Report ---
Date of Service April 13, 2020 Assessment & Plan (1) Combined systolic and diastolic congestive heart failure: History of multifactorial CHF- systolic, diastolic +/- valvular. Last echo 04/04/20: mild concentric LVH diffuse hypokinesis LV with LVEF 40-44% mitral valve clip mild-moderate MR mild aortic regurgitation mild TR mild enlargement aortic root mod enlargement ascending aorta est PA sys pressure 40-45 mm Currently prescribed furosemide 80 mg in the morning + 40 mg in the afternoon, but not taking afternoon dose due to urinary frequency. Exam, CXR, elevated pro-BNP consistent with exacerbation CHF (i.e., acute on chronic left ventricular systolic and diastolic heart failure). Furosemide 80 mg IV BID. No need to repeat echo at this time. No PATRICE or ARB due to CKD IV. No beta chuckie due to bradycardia. Consult Cardiology. (2) Elevated troponin: Serum troponin 0.070. No chest pain. Nonobstructive coronary artery disease as noted below. Doubt acute coronary syndrome. Elevated troponin probably secondary to decompensated CHF +/- CKD. Follow. (3) Coronary artery disease: Cardiac cath Jun 2019 at [facility] demonstrated nonobstructive coronary artery disease. No ASA- allergic. Not on beta chuckie due to bradycardia. Continue statin. (4) Atrial fibrillation, chronic: Chronic AF with tachy-zaid syndrome as discussed below. Rate controlled in ED. Continue warfarin. 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 Referred to [facility] Cardiology for possible pacemaker. 2 recent falls- possibly secondary to zaid or tachy arrhythmias. (6) Nonsustained ventricular tachycardia: Noted on recent ZIO monitor. Monitor electrolytes and replace as necessary. (7) Mitral valve regurgitation: Status post mitral valve clip at [facility] Jun 2019. (8) Sleep apnea: Continue CPAP 11 cm. (9) CKD (chronic kidney disease), stage IV: Baseline creatinine runs around 2. Creatinine at time of admission = 2.16. Follow. (10) Hypokalemia: K = 2.8. Hypokalemia secondary to diuretic therapy. Replace. Follow. 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 Random blood sugar 117. Tight control not indicated given advanced age and comorbidities. (12) Dyslipidemia: Continue atorvastatin. (13) COVID-19 ruled out: COVID-19 screening done due to cough & SOB. SARS-CoV-2 antigen and PCR both negative. (14) Do not resuscitate status: Per patient's wishes. (15) DVT prophylaxis: On warfarin for AF. (16) Discharge planning issues: Anticipated discharge to home. Internal Medicine follow-up with Dr. Wheeler. Cardiology follow-up with Dr. Sherman. Family would appreciate updates on status and plans. Son Jude: [phone] Daughter Dyan: [phone] History of Present Illness Chief Complaint: shortness of breath Primary Care Provider: Felix garcia MD 89 YO male followed by Dr. Wheeler for Internal Medicine and Dr. Sherman for Cardiology. 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 Brought to ED by family because of increasing dyspnea and worsening edema over past week. (Son Jude at bedside and assisted with history). Dyspnea occurs with exertion. Chronic orthopnea- keeps head of bed elevated. No chest pain. No fever. Chronic cough, unchanged. No known exposure to COVID-19. Current prescribed furosemide dose is 80 mg in the morning and 40 mg in the afternoon. He has not been taking the afternoon dose recently because he needs to get up to urinate frequently during the night. Unable to weigh himself easily at home, so not sure how weights are trending. 2 falls last week without injury. Outpatient cardiac monitoring (ZIO patch) 02/23/20: AF with rates 40 - 138. Frequent ventricular ectopy with PVC's, occasional couplets, rare triplets, and nonsustained VT with runs as long as 18 beats. Referred to [facility] Cardiology regarding tachy-zaid syndrome (appointment with Dr. See 04/26). Allergies Allergy/AdvReac Type Severity Reaction Status Date / Time aspirin Allergy Intermediate HIVES Verified 04/13/20 18:09 levofloxacin [From Levaquin] AdvReac Severe Delirium Verified 04/13/20 18:09 oxycodone AdvReac Mild INTOLERATE Verified 04/13/20 18:09 TO PERCOCET OR OXYCONTIN Home Medications Medication Instructions Recorded Confirmed Type Spiriva with HandiHaler 1 cap INHALATION QAM 03/27/19 04/13/20 History albuterol sulfate [Ventolin HFA] 1 puff INHALATION Q6H PRN 03/27/19 04/13/20 History atorvastatin 10 mg PO QAM 03/27/19 04/13/20 History cetirizine 5 mg PO HS 03/27/19 04/13/20 History fluticasone propion-salmeterol 1 inh INHALATION BID 03/27/19 04/13/20 History [Advair Diskus] hydroxyzine HCl 10 mg PO QID PRN 03/27/19 04/13/20 History warfarin See Rx Instructions .ROUTE .COMPLEX 03/27/19 04/13/20 History isosorbide dinitrate 10 mg PO BID@0700,1200 #30 tab 03/31/19 04/13/20 Rx ferrous sulfate [iron] 325 mg PO DAILY 11/29/19 04/13/20 History furosemide [Lasix] See Rx Instructions .ROUTE .COMPLEX 04/13/20 04/13/20 History Past Med/Surg History Medical History (Updated 04/13/20 @ 21:15 by Rolando Ruggiero MD) Abdominal aortic aneurysm s/p AAA repair in 2012 at [facility]) Atrial fibrillation, chronic Cerebrovascular disease "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" CKD (chronic kidney disease), 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 Coronary artery disease nonobstructive per cath [facility] Jun 2019 Diabetes mellitus type 2 with complications Diabetic neuropathy Do not resuscitate status POLST 2016 Dyslipidemia Mitral valve regurgitation Nonsustained ventricular tachycardia Sleep apnea Tachy-zaid syndrome Surgical History (Updated 04/13/20 @ 20:56 by Rolando Ruggiero MD) Status post abdominal aortic aneurysm repair " 2012 [facility]" Status post cardiac catheterization [facility] Jun 2019- nonobstructive disease [30% LAD, 50% 2nd diag, 30% circ, 30% RCA] Status post mitral valve repair Status post total knee replacement Family History (Updated 04/13/20 @ 20:57 by Rolando Ruggiero MD) Mother Thyroid disorder Father Colorectal cancer Social History Smoking Status: Former smoker Years Smoked: 51; Hx Alcohol Use: No Hx Substance Use: No Preferred Language: Tamaz[place] Communication Ability: Effective 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 Beliefs That Will Affect Care: None marital status: / marital status details: in October 2017 Current Living Situation: Alone Other Information That Helps Us Care for You: No Feels Safe at Home: Yes Safety Concerns: Feels Safe At This Time Assistive Devices: Glasses and Oxygen - Continuous Review of Systems Constitutional: + weight loss (gradual); no fever Eyes: no diplopia and no worsening vision Ear, Nose, Mouth, Throat: + hearing loss and + nasal congestion (chronic); no sore throat Respiratory: as per Subjective / HPI Cardiovascular: as per Subjective / HPI Gastrointestinal: + constipation; no nausea, no vomiting, no diarrhea/loose stools, no blood in stools and no melena Genitourinary: + urinary frequency; no dysuria and no hematuria Musculoskeletal: + joint pain Neurologic: + memory loss (per son); no headache(s) Endocrine: no polyuria (attributed to diuretic) Hematologic / Lymphatic: + easy bruising; no easy bleeding and no lymphadenopathy Physical Exam Physical Exam: VS- as noted Constitutional- elderly male; no acute distress Eyes- PERRL, anicteric sclerae, conjunctivae normal ENMT- external ear and nose normal; oropharynx clear; dentition poor (few remaining teeth) Neck- trachea midline; no thyromegaly Respiratory- no respiratory distress; bibasilar rales Cardiovascular- irregularly irregular, II/ sys murmur LSB; no definite gallop appreciated; + JVD; 1-2+ pretibial & pedal edema; normal capillary refill; pedal pulses diminished Abdomen- normal bowel sounds, soft, nontender, nondistended; no palpable masses or hepatosplenomegaly Musculoskeletal- no cyanosis Skin- warm & dry; normal color; no rashes Neurologic- no facial palsy; no dysarthria or aphasia; motor strength extremities grossly intact; patellar DTR's 1/2 bilaterally Psychiatric- alert, oriented to person, place, year, president; normal affect Lymphatic- no cervical adenopathy Results & Data Results & Data ([facility]) Vital Signs (Past 12 Hours) Vital Signs Temp Pulse Pulse Resp BP Pulse Ox 04/13/20 17:31 75 22 97 04/13/20 17:30 88 17 129/77 95 04/13/20 17:05 83 16 97 04/13/20 17:01 87 12 98 04/13/20 17:00 75 18 136/84 98 04/13/20 16:31 74 98 04/13/20 16:30 81 17 131/73 97 04/13/20 16:05 79 22 98 04/13/20 16:01 79 21 139/87 95 04/13/20 15:28 36.6 C 90 16 124/75 97 04/13/20 15:22 97 Laboratory Results Laboratory Results - last 24 hr 04/13/20 04/13/20 04/13/20 16:33 16:33 16:33 WBC 7.11 RBC 4.70 Hgb 14.3 Hct 43.7 MCV 93.0 MCH 30.4 MCHC 32.7 RDW Std Deviation 60.9 H RDW Coeff of Dwayne 18.6 H Plt Count 89 L MPV 12.6 H Immature Gran % (Auto) 0.1 Neut % (Auto) 68.3 Lymph % (Auto) 21.1 [place] % (Auto) 8.6 Eos % (Auto) 1.8 Baso % (Auto) 0.1 Neut # (Auto) 4.85 Lymph # (Auto) 1.50 [place] # (Auto) 0.61 H Eos # (Auto) 0.13 Baso # (Auto) 0.01 Immature Gran # (Auto) 0.01 Platelet Estimate Decreased L Ovalocytes 1+ Echinocytes 1+ PT 31.6 H INR 3.2 H Sodium 140 Potassium 2.8 L Chloride 102 Carbon Dioxide 28 Anion Gap 10.0 BUN 42 H Creatinine 2.16 H Est Cr Clr Drug Dosing 29.6 Est GFR ( Amer) 30.8 Est GFR (Non-Af Amer) 26.6 BUN/Creatinine Ratio 19.3 Glucose 117 H Calcium 9.3 Magnesium 1.9 Troponin I 0.070 H* NT-Pro-B Natriuret Pep 82055 H COVID-19 Eval Order SARS-CoV-2, RNA, NAAT SARS-CoV-2 Ag (Rapid) 04/13/20 04/13/20 04/13/20 18:02 18:02 Unknown WBC RBC Hgb Hct MCV MCH MCHC RDW Std Deviation RDW Coeff of Dwayne Plt Count MPV Immature Gran % (Auto) Neut % (Auto) Lymph % (Auto) [place] % (Auto) Eos % (Auto) Baso % (Auto) Neut # (Auto) Lymph # (Auto) [place] # (Auto) Eos # (Auto) Baso # (Auto) Immature Gran # (Auto) Platelet Estimate Ovalocytes Echinocytes PT INR Sodium Potassium Chloride Carbon Dioxide Anion Gap BUN Creatinine Est Cr Clr Drug Dosing Est GFR ( Amer) Est GFR (Non-Af Amer) BUN/Creatinine Ratio Glucose Calcium Magnesium Troponin I NT-Pro-B Natriuret Pep COVID-19 Eval [facility] SARS-CoV-2, RNA, NAAT NEGATIVE SARS-CoV-2 Ag (Rapid) Negative Diagnostic Findings PORTABLE CHEST X-RAY Reviewed by the undersigned and formally interpreted by Radiology: FINDINGS: Cardiac silhouette is enlarged, unchanged. Calcified plaque of the thoracic aorta. Pulmonary vascular congestion with bilateral reticular opacities redemonstrated. Bibasilar airspace opacities with small right and trace left pleural effusions. Degenerative changes of the shoulders and spine. IMPRESSION: 1. Cardiomegaly with pulmonary edema. 2. Right greater than left bibasilar opacities suggest atelectasis versus pneumonitis. 3. Trace left and small right pleural effusions. Electronically signed by: Elan Colon M.D. 04/13/2020 5:05 PM ECG Additional Comments: EKG performed at 1658 reviewed and demonstrated AF at 90 / min, PVC's, RBBB.. Code Status & VTE Plan Code Status Advanced directives (Living Will and POLST) reviewed via clinic EMR. Discussed with patient and son. DNR. VTE Prophylaxis Plan VTE Prophylaxis will be ordered: Yes
[2020-04-13] MEDS ORDERED: NITROGLYCERIN SL 0.4 MG/TAB TAB SL PRN (19:46)
[2020-04-13] MEDS ORDERED: ACETAMINOPHEN 325 MG TAB PO PRN (19:46)
[2020-04-13] MEDS ORDERED: ALBUTEROL HFA 8 GM INHALER INH PRN (19:49)
[2020-04-13] MEDS ORDERED: hydrOXYzine HCl 10 MG TAB PO PRN (19:49)
[2020-04-13] MEDS ORDERED: POTASSIUM CHLORIDE CRTAB 20 MEQ TABCR PO ONE ×2 (19:51→23:20)
[2020-04-13] MEDS: CETIRIZINE HCL 10 MG TABLET PO SCH (20:38)
[2020-04-13 22:13] LABS: Appearance Urine Clear (Clear); Bacteria Urine Automated Negative (Negative); Bilirubin Urine Negative (Negative); Blood Urine Negative (Negative); Color Urine Dark Yellow; Glucose Urine UA Negative (Negative); Ketones Urine Negative (Negative); Leukocyte Esterase Urine Trace (Negative); Nitrite Urine Negative (Negative); Protein Urine Negative (Negative); RBC Urine Automated 0-4 /hpf (0-4); Specific Gravity Urine 1.015 (1.000-1.030); Urobilinogen Urine Negative (Negative)
[2020-04-13 23:18] LABS: Potassium 3.2 mmol/L (3.5-5.1)
[2020-04-13 23:34] LABS: Magnesium 1.7 mg/dl (1.8-2.4); Troponin I 0.065 ng/ml (0-0.045)
[2020-04-14] MEDS ORDERED: MAGNESIUM SULFATE / D5W 1 GM/100 ML BAG IV ONE (04:00)
[2020-04-14 07:03] LABS: BUN Creatinine Ratio 22.3 (10-20); Calcium 9.2 mg/dl (8.5-10.1); Est GFR (African American) 33.2; Est GFR (Non-African American) 28.6; Potassium 3.5 mmol/L (3.5-5.1)
[2020-04-14 07:08] LABS: Troponin I 0.063 ng/ml (0-0.045)
[2020-04-14] MEDS ORDERED: POTASSIUM CHLORIDE 20 MEQ/15 ML UDC PO STA (07:45)
[2020-04-14] MEDS: ISOSORBIDE DINITRATE 10 MG TAB PO SCH ×2 (08:06→12:44)
[2020-04-14] MEDS: MAGNESIUM OXIDE 400 MG TAB PO SCH (08:07)
[2020-04-14] MEDS: ATORVASTATIN 10 MG TAB PO SCH (08:07)
[2020-04-14] MEDS: FLUTICASONE/VILANTEROL 200/25MCG 14 PUFFS/INHALER INH SCH (08:08)
[2020-04-14] MEDS: FUROSEMIDE 80 MG in SYRINGE 0 ML IV SCH ×2 (08:08→15:21)
[2020-04-14] MEDS: UMECLIDINIUM BROMIDE 62.5MCG/BLISTER 7 PUFFS/INHALER INH SCH (08:08)
--- NOTE | 2020-04-14 08:57 | Electrocardiogram Report ---
Test Reason : Blood Pressure : / mmHG Vent. 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
--- NOTE | 2020-04-14 11:06 | Hospitalist Progress Note ---
Date of Service April 14, 2020 Assessment & Plan (1) Combined systolic and diastolic congestive heart failure: Hypoxia secondary to combined systolic and diastolic congestive heart failure -as per history and physical "89 YO male followed by Dr. Wheeler for Internal Medicine and Dr. Sherman for Cardiology. 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 Brought to ED by family because of increasing dyspnea and worsening edema over past week. (Son Jude at bedside and assisted with history). Dyspnea occurs with exertion. Chronic orthopnea- keeps head of bed elevated. No chest pain. No fever. Chronic cough, unchanged. No known exposure to COVID-19. Current prescribed furosemide dose is 80 mg in the morning and 40 mg in the afternoon. He has not been taking the afternoon dose recently because he needs to get up to urinate frequently during the night. Unable to weigh himself easily at home, so not sure how weights are trending. 2 falls last week without injury." Outpatient cardiac monitoring (ZIO patch) 02/23/20: AF with rates 40 - 138. Frequent ventricular ectopy with PVC's, occasional couplets, rare triplets, and nonsustained VT with runs as long as 18 beats. Referred to [facility] Cardiology regarding tachy-zaid syndrome (appointment with Dr. See 04/26). History of multifactorial CHF- systolic, diastolic +/- valvular. Last echo 04/04/20: mild concentric LVH diffuse hypokinesis LV with LVEF 40-44% mitral valve clip mild-moderate MR mild aortic regurgitation mild TR mild enlargement aortic root mod enlargement ascending aorta est PA sys pressure 40-45 mm Currently Furosemide 80 mg IV BID. admission CXR 1. Cardiomegaly with pulmonary edema. 2. Right greater than left bibasilar opacities suggest atelectasis versus pneumonitis. 3. Trace left and small right pleural effusions. -as per initial admitting physician Dr. Ruggiero "Exam, CXR, elevated pro-BNP consistent with exacerbation CHF (i.e., acute on chronic left ventricular systolic and diastolic heart failure)...No need to repeat echo at this time. No PATRICE or ARB due to CKD IV. No beta chuckie due to bradycardia. Consult Cardiology." -patient's home dose Lasix of prescribed furosemide 80 mg in the morning + 40 mg in the afternoon (but not taking afternoon dose due to urinary frequency, as per admission note) currently as Lasix IV 80 mg BID -patient currently on IV Lasix 80 mg BID and on nasal cannula of 2 liters/min. discussed his care Daughter Dyan: [phone] who is in nursing and she reports that patient is on room air at baseline so IV diuretics to continue is reasoanble at this time. Dyan is concern about patient's ambulation and his nu rsing staff in the telemetry reyes concern that patient is a fall risk and set him to bed alarm. On my exam, patient was able to sit upright on his own and ambulate to chair on his own power as the chair was next to the bed. Discussed with nursing staff that patient may need 1 to 1 monitoring if he is impulsive with following directions and can be a fall risk. Otherwise patient, denies any symptoms. He is not in distress. Ne does not report of acute pain. No other symptoms on review of systems. However, his daughter Dyan questions his recent cognitive status. His daughter Dyan reports she works in a dementia unit in nursing and she does not feel that patient has dementia. Hospitalist noted that admission urine analysis is negative and currently no signs suggestive of infection at this time. Hospitalist will continue to assess his cognitive function while he is in hospital for fluid overload. (2) Elevated troponin: -Serum troponin 0.070 and trended down, as per admission physician Dr. Ruggiero "No chest pain. Nonobstructive coronary artery disease as noted below. Doubt acute coronary syndrome. Elevated troponin probably secondary to decompensated CHF +/- CKD." (3) Coronary artery disease: -as per admission notes "Cardiac cath Jun 2019 at [facility] demonstrated nonobstructive coronary artery disease. No ASA- allergic. Not on beta chuckie due to bradycardia. Continue statin. (4) Atrial fibrillation, chronic: Chronic AF with tachy-zaid syndrome Chronic anticoagulation with coumadin -INR is 3.2 on 04/14/2020 and coumadin will be held today, can continue home dose starting on 04/15/2020 (5) Tachy-zaid syndrome: -as per admission notes "recent ZIO monitor showed AF with rates ranging from 40 to 138." he was Referred to [facility] Cardiology for possible pacemaker. -unclear to suggest whether a correlation of falls at home to zaid or tachy arrhythmias. -monitor on telemetry and have PT/OT assessments (6) Nonsustained ventricular tachycardia: -Noted on recent ZIO monitor when outpatient (7) Mitral valve regurgitation: -Status post mitral valve clip at [facility] Jun 2019. (8) Sleep apnea: -Continue CPAP 11 cm. (9) CKD (chronic kidney disease), stage IV: -Baseline creatinine runs around 2 -follow renal function while on diuretics (10) Hypokalemia: -admission serum potassium 2.8 possibly a hypokalemia secondary to diuretic therapy. 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 -Tight control not indicated given advanced age and comorbidities. (12) Dyslipidemia: Continue atorvastatin. (13) COVID-19 ruled out: -SARS-CoV-2 antigen and PCR both negative on admission (14) DVT prophylaxis: -follow INR levels while on coumadin (15) Do not resuscitate status: -Code Status is DNR/DNI as confirmed on admission by admitting physician and as confirmed by daughter Dyan on the phone (16) Discharge planning issues: -case management needed as family preference is for patient to avoid placement to physical therapy center or SNF at this time once hospital stay completed -follow PT/OT notes Family contacts Son Jude: [phone] Daughter Dyan: [phone] Admission and Anticipated Discharge Date Admission Date: April 13, 2020 Subjective -patient currently on IV Lasix 80 mg BID and on nasal cannula of 2 liters/min. discussed his care Daughter Dyan: [phone] who is in nursing and she reports that patient is on room air at baseline so IV diuretics to continue is reasoanble at this time. Dyan is concern about patient's ambulation and his nursing staff in the telemetry reyes concern that patient is a fall risk and set him to bed alarm. On my exam, patient was able to sit upright on his own and ambulate to chair on his own power as the chair was next to the bed. Discussed with nursing staff that patient may need 1 to 1 monitoring if he is impulsive with following directions and can be a fall risk. Otherwise patient, denies any symptoms. He is not in distress. Ne does not report of acute pain. No other symptoms on review of systems. However, his daughter Dyan questions his recent cognitive status. His daughter Dyan reports she works in a dementia unit in nursing and she does not feel that patient has dementia. Hospitalist noted that admission urine analysis is negative and currently no signs suggestive of infection at this time. Hospitalist will continue to assess his cognitive function while he is in hospital for fluid overload. Review of Systems Review of Systems: All systems reviewed & are unremarkable except as noted in Subjective Physical Exam Constitutional: comfortable Eyes: PERRL, conjunctivae normal, anicteric sclerae EOM intact bilaterally ENMT: external ear and nose normal, oropharynx normal Neck: normal visual inspection Respiratory: normal respiratory effort Cardiovascular: Rate/Rhythm: regular rhythm Gastrointestinal (Abdomen): Inspection/Auscultation: abdomen normal to inspection and normal bowel sounds Percussion/Palpation: abdomen soft Results & Data Results & Data ([facility]) Vital Signs (Past 12 Hours) Vital Signs Temp Pulse Pulse Resp BP Pulse Ox 04/14/20 08:00 85 04/14/20 07:13 36.4 C L 81 18 113/62 90 04/14/20 04:24 36.6 C 64 18 119/67 95 04/14/20 03:16 86 23 93 04/13/20 23:48 90 04/13/20 23:25 36.4 C L 77 18 109/58 L 99 04/13/20 23:05 86 26 H 94
--- NOTE | 2020-04-14 11:42 | Cardiology Consultation ---
Date of Consultation April 14, 2020 Assessment & Plan (1) Combined systolic and diastolic congestive heart failure: Patient with complex history as outlined above who presents now with signs and symptoms of decompensated systolic and diastolic heart failure secondary to reduction in diuretic dosing. Patient is responding to IV diuretics. Overall appears more comfortable by his own description and records. Patient intermittently confused at time of examination. Daughter has observe this at home as well Underlying history is notable for chronic atrial fibrillation with borderline tachybradycardia syndrome and patient and physicians have been contemplating pacemaker insertion to allow higher dose of medical therapies for arrhythmias Plan: Discussed in detail with daughter Dyan Continue IV diuretics We will restart low-dose beta-chuckie with metoprolol succinate at 12.5 mg/day warranted for arrhythmias. Hold warfarin with consideration for possible pacemaker insertion while admitted Blood cultures ordered given mild mental status changes and ensure absence of bacteremia. MRI for confusion issues ordered in January 2020 without acute findings other than chronic lacunar infarct/microvascular disease Continue all other therapies as ordered (2) Atrial fibrillation, chronic: (3) Tachy-zaid syndrome: (4) Nonsustained ventricular tachycardia: (5) Diabetes mellitus type 2 with complications: (6) Cardiomyopathy: (7) Confusion: History of Present Illness Reason for Consultation: Combined diastolic and systolic congestive heart failure, tachybradycardia syndrome Requesting Physician: Dr. Ca Attending Physician: Minh Ca MD History of Present Illness Patient is an 89-year-old male with very complex underlying medical issues which include 1. Chronic systolic and diastolic congestive heart failure with mild to moderate left ventricular systolic dysfunction, EF 40- 45% 2. Status post mitral valve clip repair of A2 flail mitral valve leaflet, severe mitral insufficiency June 2019 3. Persistent atrial fibrillation 4. Borderline tachybradycardia syndrome 5. Mild to moderate nonobstructive coronary artery disease June 2019Dominance: Co-dominant. Left Main: Large caliber vessel that gives rise to the left anterior descending (LAD) and left circumflex (LCX) branches and is free of stenosis. LAD: Large caliber vessel that gives rise to two large diagonal branches (LADD1 and LADD2) before continuing to wrap the cardiac apex distally. The LAD contains mild diffuse luminal disease (20 to 30% stenosis). There is 40 to 50% ostial stenosis of the LADD2 branch. LCX: Large caliber codominant vessel that gives rise to a large arborizing obtuse marginal branch before continuing in the AV groove to supply several left posterior lateral branches (LPLB) and a small left posterior descending artery (LPDA) distally. The LCX and its branches contain mild diffuse luminal disease (20 to 30% stenosis). RCA: Large caliber codominant vessel that gives rise to the right posterior descending (RPDA) distally. The RCA and its branches contain mild diffuse luminal disease (20 to 30% stenosis). 6. Stage III chronic kidney disease 7. Obstructive sleep apnea on CPAP therapy 8. Hypertension 9. Atherosclerotic peripheral vascular disease status post abdominal aneurysm repair Patient presents this admission having been observed by family members at home to have increasing lower extremity edema and shortness of breath culminating in moderate respiratory distress. Patient presented and was found to be in congestive heart failure. Patient has responded to IV diuretics and much more comfortable this morning after examination. History is notable for patient reduction in diuretic dosing due to nocturia. Family has been aware of intermittent confusion witnessed during this hospital ization. Episodes are interspersed with moments of lucidity No fevers or chills. No bleeding difficulties. Patient followed closely by multiple family members with medical expertise at home. Patient in the course of evaluation for possible pacemaker insertion with borderline tachybradycardia syndrome with complex ventricular ectopy and arrhythmias on telemetry and past bradycardia arrhythmias on higher dose beta- chuckie therapy. He remains in atrial fibrillation and anticoagulated Currently patient denies chest pains or dizziness. Notes no orthopnea. Lower extremity edema appears to improved since admission. Allergies Allergy/AdvReac Type Severity Reaction Status Date / Time aspirin Allergy Intermediate HIVES Verified 04/13/20 18:09 levofloxacin [From Levaquin] AdvReac Severe Delirium Verified 04/13/20 18:09 oxycodone AdvReac Mild INTOLERATE Verified 04/13/20 18:09 TO PERCOCET OR OXYCONTIN Home Medications Medication Instructions Recorded Confirmed Type Spiriva with HandiHaler 1 cap INHALATION QAM 03/27/19 04/13/20 History albuterol sulfate [Ventolin HFA] 1 puff INHALATION Q6H PRN 03/27/19 04/13/20 History atorvastatin 10 mg PO QAM 03/27/19 04/13/20 History cetirizine 5 mg PO HS 03/27/19 04/13/20 History fluticasone propion-salmeterol 1 inh INHALATION BID 03/27/19 04/13/20 History [Advair Diskus] hydroxyzine HCl 10 mg PO QID PRN 03/27/19 04/13/20 History warfarin See Rx Instructions .ROUTE .COMPLEX 03/27/19 04/13/20 History isosorbide dinitrate 10 mg PO BID@0700,1200 #30 tab 03/31/19 04/13/20 Rx ferrous sulfate [iron] 325 mg PO DAILY 11/29/19 04/13/20 History furosemide [Lasix] See Rx Instructions .ROUTE .COMPLEX 04/13/20 04/13/20 History Patient History Medical History Abdominal aortic aneurysm s/p AAA repair in 2012 at [place]) Atrial fibrillation, chronic Cerebrovascular disease "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" CKD (chronic kidney disease), 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 Coronary artery disease nonobstructive per cath [facility] Jun 2019 Diabetes mellitus type 2 with complications Diabetic neuropathy Do not resuscitate status POLST 2015 Dyslipidemia Mitral valve regurgitation Nonsustained ventricular tachycardia Sleep apnea Tachy-zaid syndrome Surgical History Status post abdominal aortic aneurysm repair " 2012 [facility]" Status post cardiac catheterization [facility] Jun 2019- nonobstructive disease [30% LAD, 50% 2nd diag, 30% circ, 30% RCA] Status post mitral valve repair Status post total knee replacement Family History Mother Thyroid disorder Father Colorectal cancer Social History Smoking Status: Former smoker Years Smoked: 51; Hx Alcohol Use: No Hx Substance Use: No Preferred Language: Indonesian Communication Ability: Effective 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 Beliefs That Will Affect Care: None marital status: / marital status details: in October 2017 Current Living Situation: Alone Other Information That Helps Us Care for You: No Feels Safe at Home: Yes Safety Concerns: Feels Safe At This Time Assistive Devices: Glasses and Oxygen - Continuous Review of Systems Review of Systems: All systems reviewed & are unremarkable except as noted in HPI & below Physical Exam Constitutional: WD/WN, vitals as above no acute distress Eyes: PERRL, conjunctivae normal, anicteric sclerae ENMT: external ear and nose normal, oropharynx normal Neck: trachea midline, no thyromegaly Respiratory: normal respiratory effort, lungs clear to auscultation Auscultation: + rales (Few basilar) Cardiovascular: Rate/Rhythm: + irregularly irregular Heart Sounds: normal S1 and normal S2; no gallop and no murmur Palpation: normal PMI Vessels: normal carotid upstroke and radial pulses present; no JVD and no carotid bruit Extremities: + edema (2+) Gastrointestinal (Abdomen): normal bowel sounds, soft, nontender, no hepatosplenomegaly Musculoskeletal: no cyanosis or clubbing, extremities motor strength 5/5 Skin: no rashes, warm and dry Neurologic: PERRL, EOMI, accommodation nl, no face palsy, no dysarthria Psychiatric: A+Ox3, euthymic affect Results & Data ([facility]) Vital Signs (Past 12 Hours) Vital Signs Temp Pulse Pulse Resp BP Pulse Ox 04/14/20 08:00 85 04/14/20 07:13 36.4 C L 81 18 113/62 90 04/14/20 04:24 36.6 C 64 18 119/67 95 04/14/20 03:16 86 23 93 04/13/20 23:48 90 Laboratory Results Laboratory Results - last 24 hr 04/13/20 04/13/20 04/13/20 16:33 16:33 16:33 WBC 7.11 RBC 4.70 Hgb 14.3 Hct 43.7 MCV 93.0 MCH 30.4 MCHC 32.7 RDW Std Deviation 60.9 H RDW Coeff of Dwayne 18.6 H Plt Count 89 L MPV 12.6 H Immature Gran % (Auto) 0.1 Neut % (Auto) 68.3 Lymph % (Auto) 21.1 [place] % (Auto) 8.6 Eos % (Auto) 1.8 Baso % (Auto) 0.1 Neut # (Auto) 4.85 Lymph # (Auto) 1.50 [place] # (Auto) 0.61 H Eos # (Auto) 0.13 Baso # (Auto) 0.01 Immature Gran # (Auto) 0.01 Platelet Estimate Decreased L Ovalocytes 1+ Echinocytes 1+ PT 31.6 H INR 3.2 H Sodium 140 Potassium 2.8 L Chloride 102 Carbon Dioxide 28 Anion Gap 10.0 BUN 42 H Creatinine 2.16 H Est Cr Clr Drug Dosing 29.6 Est GFR ( Amer) 30.8 Est GFR (Non-Af Amer) 26.6 BUN/Creatinine Ratio 19.3 Glucose 117 H Calcium 9.3 Magnesium 1.9 Troponin I 0.070 H* NT-Pro-B Natriuret Pep 98672 H Urine Color Urine Appearance Urine pH Ur Specific [place] Urine Protein Urine Glucose (UA) Urine Ketones Urine Blood Urine Nitrite Urine Bilirubin Urine Urobilinogen Ur Leukocyte Esterase Urine WBC (Auto) Urine RBC (Auto) U Hyaline Cast (Auto) U Epithel Cells (Auto) Urine Bacteria (Auto) COVID-19 Eval Order SARS-CoV-2, RNA, NAAT SARS-CoV-2 Ag (Rapid) 04/13/20 04/13/20 04/13/20 18:02 18:02 21:57 WBC RBC Hgb Hct MCV MCH MCHC RDW Std Deviation RDW Coeff of Dwayne Plt Count MPV Immature Gran % (Auto) Neut % (Auto) Lymph % (Auto) [place] % (Auto) Eos % (Auto) Baso % (Auto) Neut # (Auto) Lymph # (Auto) [place] # (Auto) Eos # (Auto) Baso # (Auto) Immature Gran # (Auto) Platelet Estimate Ovalocytes Echinocytes PT INR Sodium Potassium Chloride Carbon Dioxide Anion Gap BUN Creatinine Est Cr Clr Drug Dosing Est GFR ( Amer) Est GFR (Non-Af Amer) BUN/Creatinine Ratio Glucose Calcium Magnesium Troponin I NT-Pro-B Natriuret Pep Urine Color Dark Yellow Urine Appearance Clear Urine pH 5.0 Ur Specific [place] 1.015 Urine Protein Negative Urine Glucose (UA) Negative Urine Ketones Negative Urine Blood Negative Urine Nitrite Negative Urine Bilirubin Negative Urine Urobilinogen Negative Ur Leukocyte Esterase Trace H Urine WBC (Auto) 1-5 Urine RBC (Auto) 0-4 U Hyaline Cast (Auto) 1-5 U Epithel Cells (Auto) 10-20 H Urine Bacteria (Auto) Negative COVID-19 Eval [facility] SARS-CoV-2, RNA, NAAT NEGATIVE SARS-CoV-2 Ag (Rapid) 04/13/20 04/13/20 04/14/20 22:42 Unknown 06:01 WBC RBC Hgb Hct MCV MCH MCHC RDW Std Deviation RDW Coeff of Dwayne Plt Count MPV Immature Gran % (Auto) Neut % (Auto) Lymph % (Auto) [place] % (Auto) Eos % (Auto) Baso % (Auto) Neut # (Auto) Lymph # (Auto) [place] # (Auto) Eos # (Auto) Baso # (Auto) Immature Gran # (Auto) Platelet Estimate Ovalocytes Echinocytes PT INR Sodium 139 Potassium 3.2 L 3.5 Chloride 104 Carbon Dioxide 24 Anion Gap 11.0 BUN 45 H Creatinine 2.03 H Est Cr Clr Drug Dosing 31.0 Est GFR ( Amer) 33.2 Est GFR (Non-Af Amer) 28.6 BUN/Creatinine Ratio 22.3 H Glucose 150 H Calcium 9.2 Magnesium 1.7 L Troponin I 0.065 H* 0.063 H* NT-Pro-B Natriuret Pep Urine Color Urine Appearance Urine pH Ur Specific [place] Urine Protein Urine Glucose (UA) Urine Ketones Urine Blood Urine Nitrite Urine Bilirubin Urine Urobilinogen Ur Leukocyte Esterase Urine WBC (Auto) Urine RBC (Auto) U Hyaline Cast (Auto) U Epithel Cells (Auto) Urine Bacteria (Auto) COVID-19 Eval Order SARS-CoV-2, RNA, NAAT SARS-CoV-2 Ag (Rapid) Negative Diagnostic Findings Echocardiogram 04/04/2000 Study was performed with the patient in atrial fibrillation. The LV wall thickness is mildly increased (concentric). The left ventricular cavity size is mildly enlarged. There is mild diffuse left ventricular hypokinesis. The qualitative LV ejection fraction is 40-44% (mildly reduced). There is evidence of prior mitral valve repair utilizing a percutaneous clip. Mild to moderate mitral regurgitation, anteriorly directed. Mild aortic valve regurgitation is present. Mild tricuspid regurgitation is present. The aortic root is mildly enlarged. The proximal ascending thoracic aorta is moderately enlarged. Indeterminate IVC size and collapsability. Right atrial pressure estimated at 8 mmHg. The estimated pulmonary artery systolic pressure is 40-45mm Hg.
[2020-04-14] MEDS: METOPROLOL SUCC 25MG EXT REL TAB PO SCH (12:44)
[2020-04-14] MEDS: WARFARIN SOD 5 MG TAB PO SCH ×2 (15:21→15:28)
[2020-04-14 15:23] LABS: BUN Creatinine Ratio 21.6 (10-20); Calcium 9.3 mg/dl (8.5-10.1); Creatinine Clr Calc Pharmacy 27.6 ml/min; Est GFR (African American) 28.8; Est GFR (Non-African American) 24.9; INR 3.6 (0.9-1.1); Potassium 3.9 mmol/L (3.5-5.1); Prothrombin Time 35.6 Seconds (9.0-12.0)
[2020-04-14] MEDS ORDERED: WARFARIN SOD 2.5 MG TAB PO SCH (16:00)
[2020-04-14] MEDS: LORazepam 0.5 MG/1 ML VIAL IV PRN ×2 (19:39→23:28)
[2020-04-14] MEDS: CETIRIZINE HCL 10 MG TABLET PO SCH (21:00)
[2020-04-15] MEDS: LORazepam 0.5 MG/1 ML VIAL IV PRN (03:51)
--- NOTE | 2020-04-15 07:17 | XRay Report ---
XR chest 1V portable CLINICAL HISTORY: follow lung infiltrates COMPARISON STUDY: 04/13/2020 FINDINGS: The heart is enlarged. There is persistent elevation of interstitium, pulmonary vascular co ngestion versus a bilateral interstitial inflammatory process. Small bilateral pleural effusions are suspected.[ IMPRESSION: No significant change from the prior study. Persistent cardiomegaly and elevation of the interstitium, pulmonary vascular congestion versus a bilateral interstitial inflammatory process. ACT 112: Negative or not required by law. Electronically signed by: Warner Parker M.D. 04/15/2020 7:16 AM
[2020-04-15 08:01] LABS: Mean Corpuscular Hgb Conc 32.5 g/dL (32-36)
[2020-04-15 08:09] LABS: Hemoglobin 14.3 g/dL (14.0-18.0); Mean Corpuscular Hemoglobin 30.6 pg (25-34); Mean Corpuscular Volume 94.2 fL (80-100); RDW Standard Deviation 63.7 fL (36.4-46.3); Red Blood Count 4.67 M/uL (4.7-6.1)
[2020-04-15] MEDS ORDERED: ACETAMINOPHEN 325 MG TAB PO PRN (08:18)
[2020-04-15 08:26] LABS: Echinocytes 1+; Immature Granulocytes # (auto) 0.03 K/uL (0.00-0.02); Immature Granulocytes % (auto) 0.2 %; Lymphocytes # (auto) 0.94 K/uL (1.2-3.4); Lymphocytes % (auto) 7.6 %; Monocytes # (auto) 1.09 K/uL (0.11-0.59); Monocytes % (auto) 8.9 %; Neutrophils # (auto) 10.24 K/uL (1.4-6.5); Neutrophils % (auto) 83.3 %; Platelet Count 120 K/uL (130-400); Platelet Estimate Decreased (Normal)
[2020-04-15 08:27] LABS: Albumin Globulin Ratio 0.5 (0.9-2); Albumin Level 2.6 gm/dl (3.4-5.0); Bilirubin,Total 2.4 mg/dl (0.2-1); Calcium 9.7 mg/dl (8.5-10.1); Creatinine Clr Calc Pharmacy 24.2 ml/min; Est GFR (African American) 24.6; Est GFR (Non-African American) 21.2; Globulin 5.2 gm/dl (2.5-4.0); Magnesium 2.3 mg/dl (1.8-2.4); Potassium 4.3 mmol/L (3.5-5.1); Total Protein 7.8 gm/dl (6.4-8.2)
--- NOTE | 2020-04-15 08:49 | Hospitalist Progress Note ---
Date of Service April 15, 2020 Assessment & Plan (1) Combined systolic and diastolic congestive heart failure: Hypoxia secondary to combined systolic and diastolic congestive heart failure -as per history and physical "89 YO male followed by Dr. Wheeler for Internal Medicine and Dr. Sherman for Cardiology. 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 Brought to ED by family because of increasing dyspnea and worsening edema over past week. (Son Jude at bedside and assisted with history). Dyspnea occurs with exertion. Chronic orthopnea- keeps head of bed elevated. No chest pain. No fever. Chronic cough, unchanged. No known exposure to COVID-19. Current prescribed furosemide dose is 80 mg in the morning and 40 mg in the afternoon. He has not been taking the afternoon dose recently because he needs to get up to urinate frequently during the night. Unable to weigh himself easily at home, so not sure how weights are trending. 2 falls last week without injury." Outpatient cardiac monitoring (ZIO patch) 02/23/20: AF with rates 40 - 138. Frequent ventricular ectopy with PVC's, occasional couplets, rare triplets, and nonsustained VT with runs as long as 18 beats. Referred to [facility] regarding tachy-zaid syndrome (appointment with Dr. See 04/26). History of multifactorial CHF- systolic, diastolic +/- valvular. Last echo 04/04/20: mild concentric LVH diffuse hypokinesis LV with LVEF 40-44% mitral valve clip mild-moderate MR mild aortic regurgitation mild TR mild enlargement aortic root mod enlargement ascending aorta est PA sys pressure 40-45 mm Currently Furosemide 80 mg IV BID. admission CXR 1. Cardiomegaly with pulmonary edema. 2. Right greater than left bibasilar opacities suggest atelectasis versus pneumonitis. 3. Trace left and small right pleural effusions. -as per initial admitting physician Dr. Ruggiero "Exam, CXR, elevated pro-BNP consistent with exacerbation CHF (i.e., acute on chronic left ventricular systolic and diastolic heart failure)...No need to repeat echo at this time. No PATRICE or ARB due to CKD IV. No beta chuckie due to bradycardia. Consult Cardiology." -patient's home dose Lasix of prescribed furosemide 80 mg in the morning + 40 mg in the afternoon (but not taking afternoon dose due to urinary frequency, as per admission note) currently as Lasix IV 80 mg BID -04/14/2020 AM hospitalist assessment: patient currently on IV Lasix 80 mg BID and on nasal cannula of 2 liters/min. discussed his care Daughter Dyan: [phone] who is in nursing and she reports that patient is on room air at baseline so IV diuretics to continue is reasoanble at this time. Dyan is concern about patient's ambulation and his nursing staff in the telemetry reyes concern that patient is a fall risk and set him to bed alarm. On my exam, patient was able to sit upright on his own and ambulate to chair on his own power as the chair was next to the bed. Discussed with nursing staff that patient may need 1 to 1 monitoring if he is impulsive with following directions and can be a fall risk. Otherwise patient, denies any symptoms. He is not in distress. Ne does not report of acute pain. No other symptoms on review of systems. However, his daughter Dyan questions his recent cognitive status. His daughter Dyan reports she works in a dementia unit in nursing and she does not feel that patient has dementia. Hospitalist noted that admission urine analysis is negative and currently no signs suggestive of infection at this time. Hospitalist will continue to assess his cognitive function while he is in hospital for fluid overload. -04/14/2020 cardiology assessment: " Patient with complex history as outlined above who presents now with signs and symptoms of decompensated systolic and diastolic heart failure secondary to reduction in diuretic dosing. Patient is responding to IV diuretics. Overall appears more comfortable by his own description and records. Patient intermittently confused at time of examination. Daughter has observe this at home as well Underlying history is notable for chronic atrial fibrillation with borderline tachybradycardia syndrome and patient and physicians have been contemplating pacemaker insertion to allow higher dose of medical therapies for arrhythmias. Discussed in detail with daughter Dyan. Continue IV diuretics. We will restart low-dose beta-chuckie with metoprolol succinate at 12.5 mg/day warranted for arrhythmias. Hold warfarin with consideration for possible pacemaker insertion while admitted Blood cultures ordered given mild mental status changes and ensure absence of bacteremia. MRI for confusion issues ordered in January 2020 without acute findings other than chronic lacunar infarct/microvascular disease" -04/15/2020: patient was given 3 doses of Ativan by night time doctor/night time nursing staff in the night time of 04/14/2020 because of behavioral issues of not cooperating with medical staff and is still sleeping by AM exam. Patient's INR is 6 despite coumadin held on 04/14/2020. Vitamin K 2.5 mg IV x 1 to be g iven. Holding the IV Lasix for now as rising BUN/creatinine of 57/2.6 and in context of patient's current drowsiness. Nurse will hold AM oral cardiovascular medications which may be given when patient awake and more alert. Patient currently on oxymask and has 1 to 1 nursing assoc at bedside. (2) Elevated troponin: -Serum troponin 0.070 and trended down, as per admission physician Dr. Ruggiero "No chest pain. Nonobstructive coronary artery disease as noted below. Doubt acute coronary syndrome. Elevated troponin probably secondary to decompensated CHF +/- CKD." (3) Coronary artery disease: -as per admission notes "Cardiac cath Jun 2019 at [facility] demonstrated nonobstructive coronary artery disease. No ASA- allergic. Not on beta chuckie due to bradycardia. Continue statin. (4) Atrial fibrillation, chronic: Chronic AF with tachy-zaid syndrome Chronic anticoagulation with coumadin Supratherapeutic INR -INR is 3.2 on 04/14/2020 and coumadin held -INR 6 on 04/15/2020. vitamin K IV 2.5 mg to be given. stop all warfarin orders for now (5) Tachy-zaid syndrome: -as per admission notes "recent ZIO monitor showed AF with rates ranging from 40 to 138." he was Referred to [facility] for possible pacemaker. -unclear to suggest whether a correlation of falls at home to zaid or tachy arrhythmias. -monitor on telemetry and have PT/OT assessments (6) Nonsustained ventricular tachycardia: -Noted on recent ZIO monitor when outpatient (7) Mitral valve regurgitation: -Status post mitral valve clip at [facility] Jun 2019. (8) Sleep apnea: -Continue CPAP 11 cm. (9) CKD (chronic kidney disease), stage IV: -Baseline creatinine runs around 2 -follow renal function while on diuretics (10) Hypokalemia: -admission serum potassium 2.8 possibly a hypokalemia secondary to diuretic therapy. 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 -Tight control not indicated given advanced age and comorbidities. (12) Dyslipidemia: History of stroke in the past -MRI for confusion issues ordered in January 2020 without acute findings other than chronic lacunar infarct/microvascular disease -on home atorvastatin. -on 1 to 1 observation. AVOID ATIVAN IN FUTURE THIS CAN CAUSE EXCESSIVE SEDATION (13) COVID-19 ruled out: -SARS-CoV-2 antigen and PCR both negative on admission (14) DVT prophylaxis: -follow INR levels (15) Do not resuscitate status: -Code Status is DNR/DNI as confirmed on admission by admitting physician and as confirmed by daughter Dyan on the phone (16) Discharge planning issues: -case management needed as family preference is for patient to avoid placement to physical therapy center or SNF at this time once hospital stay completed -follow PT/OT notes Family contacts Son Jude: [phone] Daughter Dyan: [phone] Admission and Anticipated Discharge Date Admission Date: April 13, 2020 Subjective 04/15/2020: patient was given 3 doses of Ativan by night time doctor/night time nursing staff in the night time of 04/14/2020 because of behavioral issues of not cooperating with medical staff and is still sleeping by AM exam. Patient's INR is 6 despite coumadin held on 04/14/2020. Vitamin K 2.5 mg IV x 1 to be given. Holding the IV Lasix for now as rising BUN/creatinine of 57/2.6 and in context of patient's current drowsiness. Nurse will hold AM oral cardiovascular medications which may be given when patient awake and more alert. Patient currently on oxymask and has 1 to 1 nursing assoc at bedside. Review of Systems Review of Systems: Unobtainable due to cognitive status Physical Exam Neck: normal visual inspection Respiratory: Auscultation: + bronchovesicular breath sounds Cardiovascular: Rate/Rhythm: regular rate and + irregularly irregular Chest (Breasts): Chest: normal inspection of chest Gastrointestinal (Abdomen): normal bowel sounds, soft, nontender, no hepatosplenomegaly Musculoskeletal: Head/Neck/Chest: normocephalic and head atraumatic bilateral lower extremity edema Neurologic: sleeping, lethargic Results & Data Results & Data ([facility]) Vital Signs (Past 12 Hours) Vital Signs Temp Pulse Pulse Resp BP Pulse Ox 04/15/20 04:00 89 20 146/83 H 91 04/15/20 00:22 85 04/14/20 23:15 36.6 C 59 L 20 124/69 95
[2020-04-15] MEDS ORDERED: PHYTONADIONE 2.5 MG in SODIUM CHLORIDE 0.9% 50 ML IV ONE (09:00)
[2020-04-15] MEDS: FUROSEMIDE 80 MG in SYRINGE 0 ML IV SCH (09:06)
[2020-04-15] MEDS: MAGNESIUM OXIDE 400 MG TAB PO SCH (10:19)
[2020-04-15] MEDS: ATORVASTATIN 10 MG TAB PO SCH (10:19)
[2020-04-15] MEDS: UMECLIDINIUM BROMIDE 62.5MCG/BLISTER 7 PUFFS/INHALER INH SCH (10:20)
[2020-04-15] MEDS: FLUTICASONE/VILANTEROL 200/25MCG 14 PUFFS/INHALER INH SCH (10:20)
--- NOTE | 2020-04-15 12:09 | Cardiology Progress Note ---
Date of Service April 15, 2020 Assessment & Plan (1) Combined systolic and diastolic congestive heart failure: Patient with complex history as outlined above who presents now with signs and symptoms of decompensated systolic and diastolic heart failure secondary to reduction in diuretic dosing. Patient is responding to IV diuretics. Overall appears more comfortable by his own description and records. Patient intermittently confused at time of examination. Daughter has observe this at home as well Underlying history is notable for chronic atrial fibrillation with borderline tachybradycardia syndrome and patient and physicians have been contemplating pacemaker insertion to allow higher dose of medical therapies for arrhythmias Plan: Patient more somnolent this morning after sedation last night for agitation. Chest x-ray little change with chronic interstitial changes. Agree with current plans holding medications until more alert, holding diuretics. As noted prior tentative plans for possible pacemaker later this week but absolute indications not present. Telemetry without bradycardia arrhythmias but complex ventricular ectopy which would benefit from higher dose beta-chuckie if pacemaker (2) Atrial fibrillation, chronic: (3) Tachy-zaid syndrome: (4) Nonsustained ventricular tachycardia: (5) Diabetes mellitus type 2 with complications: (6) Cardiomyopathy: (7) Confusion: Admission and Anticipated Discharge Date Admission Date: April 13, 2020 Subjective Patient seen and examined, chart, medications, telemetry reviewed. Patient very sedated after medications received last evening. Physical Exam Constitutional: WD/WN, vitals as above no acute distress Eyes: PERRL, conjunctivae normal, anicteric sclerae ENMT: external ear and nose normal, oropharynx normal Neck: trachea midline, no thyromegaly Respiratory: Auscultation: + rales (Few basilar, scattered fine crackles) Coarse upper airway sounds Cardiovascular: Rate/Rhythm: + irregularly irregular Heart Sounds: normal S1 and normal S2; no gallop and no murmur Palpation: normal PMI Vessels: normal carotid upstroke and radial pulses present; no JVD and no carotid bruit Extremities: + edema (2+) Gastrointestinal (Abdomen): normal bowel sounds, soft, nontender, no hepatosplenomegaly Musculoskeletal: no cyanosis or clubbing, extremities motor strength 5/5 Skin: no rashes, warm and dry Neurologic: PERRL, EOMI, accommodation nl, no face palsy, no dysarthria Psychiatric: A+Ox3, euthymic affect Results & Data ([facility]) Vital Signs (Past 12 Hours) Vital Signs Pulse Pulse Pulse Resp BP Pulse Ox 04/15/20 12:01 82 16 132/78 95 04/15/20 07:15 83 24 135/81 81 L 04/15/20 07:00 76 04/15/20 04:00 89 20 146/83 H 91 04/15/20 00:22 85 Laboratory Results Laboratory Results - last 24 hr 04/14/20 04/14/20 04/15/20 14:15 14:15 07:27 WBC 12.30 H RBC 4.67 L Hgb 14.3 Hct 44.0 MCV 94.2 MCH 30.6 MCHC 32.5 RDW Std Deviation 63.7 H RDW Coeff of Dwayne 19.0 H Plt Count 120 L Immature Gran % (Auto) 0.2 Neut % (Auto) 83.3 Lymph % (Auto) 7.6 [place] % (Auto) 8.9 Eos % (Auto) 0.0 Baso % (Auto) 0.0 Neut # (Auto) 10.24 H Lymph # (Auto) 0.94 L [place] # (Auto) 1.09 H Eos # (Auto) 0.00 Baso # (Auto) 0.00 Immature Gran # (Auto) 0.03 H Platelet Estimate Decreased L Echinocytes 1+ PT 35.6 H INR 3.6 H Sodium 137 Potassium 3.9 Chloride 101 Carbon Dioxide 26 Anion Gap 10.0 BUN 49 H Creatinine 2.28 H Est Cr Clr Drug Dosing 27.6 Est GFR ( Amer) 28.8 Est GFR (Non-Af Amer) 24.9 BUN/Creatinine Ratio 21.6 H Glucose 131 H Calcium 9.3 Magnesium 2.0 Total Bilirubin AST ALT Alkaline Phosphatase Total Protein Albumin Globulin Albumin/Globulin Ratio 04/15/20 04/15/20 07:27 07:27 WBC RBC Hgb Hct MCV MCH MCHC RDW Std Deviation RDW Coeff of Dwayne Plt Count Immature Gran % (Auto) Neut % (Auto) Lymph % (Auto) [place] % (Auto) Eos % (Auto) Baso % (Auto) Neut # (Auto) Lymph # (Auto) [place] # (Auto) Eos # (Auto) Baso # (Auto) Immature Gran # (Auto) Platelet Estimate Echinocytes PT 57.0 H INR 6.0 H* Sodium 136 Potassium 4.3 Chloride 102 Carbon Dioxide 22 Anion Gap 12.0 H BUN 57 H Creatinine 2.60 H D Est Cr Clr Drug Dosing 24.2 Est GFR ( Amer) 24.6 Est GFR (Non-Af Amer) 21.2 BUN/Creatinine Ratio 22.0 H Glucose 112 H Calcium 9.7 Magnesium 2.3 Total Bilirubin 2.4 H AST 69 H ALT 45 Alkaline Phosphatase 121 H Total Protein 7.8 Albumin 2.6 L Globulin 5.2 H Albumin/Globulin Ratio 0.5 L Diagnostic Findings Chest x-ray diffuse interstitial changes
[2020-04-15] MEDS ORDERED: WARFARIN SOD 2.5 MG TAB PO SCH (16:00)
[2020-04-15] MEDS: METOPROLOL SUCC 25MG EXT REL TAB PO SCH (17:04)
[2020-04-15] MEDS: ISOSORBIDE DINITRATE 10 MG TAB PO SCH ×2 (17:04→17:11)
[2020-04-15 19:23] LABS: Base Excess ABG -3.6 mEq/L (-9-1.8); HCO3 ABG 21 mmol/L (19-24); PCO2 ABG 35 mmHg (35-46); PO2 ABG 88 mmHg (80-95); pH ABG 7.39 (7.35-7.45)
[2020-04-15 19:29] LABS: Allen Test Pos (Pos)
[2020-04-15 20:00] LABS: Hematocrit (blood only) 44.4 % (42-52); Hemoglobin 14.6 g/dL (14.0-18.0); Mean Corpuscular Hemoglobin 30.7 pg (25-34); Mean Corpuscular Hgb Conc 32.9 g/dL (32-36); Mean Corpuscular Volume 93.5 fL (80-100); Platelet Count 107 K/uL (130-400); RDW Coefficient of Variation 18.8 % (11.5-14.5); RDW Standard Deviation 63.5 fL (36.4-46.3); Red Blood Count 4.75 M/uL (4.7-6.1)
[2020-04-15 20:04] LABS: Albumin Globulin Ratio 0.5 (0.9-2); Albumin Level 2.5 gm/dl (3.4-5.0); BUN Creatinine Ratio 22.8 (10-20); Bilirubin,Total 2.6 mg/dl (0.2-1); Calcium 9.7 mg/dl (8.5-10.1); Creatinine Clr Calc Pharmacy 22.9 ml/min; Est GFR (Non-African American) 19.8; Globulin 4.9 gm/dl (2.5-4.0); Total Protein 7.4 gm/dl (6.4-8.2)
[2020-04-15 20:22] LABS: Basophils # (auto) 0.02 K/uL (0-0.2); Basophils % (auto) 0.2 %; Immature Granulocytes # (auto) 0.03 K/uL (0.00-0.02); Immature Granulocytes % (auto) 0.3 %; Lymphocytes # (auto) 1.06 K/uL (1.2-3.4); Lymphocytes % (auto) 9.7 %; Monocytes # (auto) 0.83 K/uL (0.11-0.59); Monocytes % (auto) 7.6 %; Neutrophils # (auto) 8.96 K/uL (1.4-6.5); Neutrophils % (auto) 82.2 %
[2020-04-15] MEDS ORDERED: SODIUM CHLORIDE 0.9% 1000ML 1,000 ML IV SCH (21:15)
[2020-04-15 21:24] LABS: Potassium 4.6 mmol/L (3.5-5.1)
[2020-04-15] MEDS: CETIRIZINE HCL 10 MG TABLET PO SCH (21:34)
[2020-04-16] MEDS: NYSTATIN POWDER 15GM BTL EXT SCH ×3 (03:44→21:28)
[2020-04-16 06:47] LABS: Mean Corpuscular Hgb Conc 32.5 g/dL (32-36)
[2020-04-16 06:50] LABS: Hematocrit (blood only) 43.7 % (42-52); Hemoglobin 14.2 g/dL (14.0-18.0); Mean Corpuscular Hemoglobin 30.4 pg (25-34); Mean Corpuscular Volume 93.6 fL (80-100); RDW Coefficient of Variation 19.1 % (11.5-14.5); RDW Standard Deviation 61.8 fL (36.4-46.3); Red Blood Count 4.67 M/uL (4.7-6.1)
[2020-04-16 06:51] LABS: Albumin Level 2.3 gm/dl (3.4-5.0); BUN Creatinine Ratio 23.3 (10-20); Calcium 9.2 mg/dl (8.5-10.1); Est GFR (African American) 21.9; Est GFR (Non-African American) 18.9; Potassium 5.2 mmol/L (3.5-5.1)
[2020-04-16 06:54] LABS: Albumin Globulin Ratio 0.5 (0.9-2); Bilirubin,Total 2.9 mg/dl (0.2-1); Globulin 4.6 gm/dl (2.5-4.0); Total Protein 6.9 gm/dl (6.4-8.2)
[2020-04-16 06:57] LABS: INR 4.2 (0.9-1.1); Prothrombin Time 40.8 Seconds (9.0-12.0)
[2020-04-16 07:25] LABS: Base Excess VBG -2.2 mEq/L; HCO3 VBG 23 mmol/L; Oxygen Saturation VBG < 60.0 %; PCO2 VBG 39 mmHg (38-50); PO2 VBG 36 mmHg; pH VBG 7.38 (7.36-7.41)
[2020-04-16] MEDS ORDERED: SODIUM CHLORIDE 0.9% 1000ML 500 ML IV ONE ×2 (07:26→11:28)
[2020-04-16 07:31] LABS: Echinocytes 1+; Eosinophils # (auto) 0.01 K/uL (0-0.5); Eosinophils % (auto) 0.1 %; Immature Granulocytes # (auto) 0.02 K/uL (0.00-0.02); Immature Granulocytes % (auto) 0.2 %; Lymphocytes # (auto) 1.26 K/uL (1.2-3.4); Monocytes # (auto) 0.91 K/uL (0.11-0.59); Monocytes % (auto) 8.7 %; Platelet Count 84 K/uL (130-400); Platelet Estimate Decreased (Normal)
--- NOTE | 2020-04-16 08:13 | XRay Report ---
XR chest 1V portable CLINICAL HISTORY: follow lung infiltrates COMPARISON STUDY: 04/15/2020 FINDINGS: The heart remains enlarged. There is persistent elevation of interstitium. This could repre sent pulmonary vascular congestion or a bilateral interstitial inflammatory process. The findings are relatively stable.[Trace pleural effusions are suspected. IMPRESSION: 1. Persistent cardiomegaly and elevation of interstitium. Diagnostic considerations include pulmonary vascular congestion versus a bilateral interstitial inflammatory process. ACT 112: Negative or not required by law. Electronically signed by: Warner Parker M.D. 04/16/2020 8:12 AM
--- NOTE | 2020-04-16 08:19 | Hospitalist Progress Note ---
Date of Service April 16, 2020 Assessment & Plan (1) Combined systolic and diastolic congestive heart failure: Hypoxia secondary to combined systolic and diastolic congestive heart failure Lactic Acidosis -as per history and physical "89 YO male followed by Dr. Wheeler for Internal Medicine and Dr. Sherman for Cardiology. 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 Brought to ED by family because of increasing dyspnea and worsening edema over past week. (Son Jude at bedside and assisted with history). Dyspnea occurs with exertion. Chronic orthopnea- keeps head of bed elevated. No chest pain. No fever. Chronic cough, unchanged. No known exposure to COVID-19. Current prescribed furosemide dose is 80 mg in the morning and 40 mg in the afternoon. He has not been taking the afternoon dose recently because he needs to get up to urinate frequently during the night. Unable to weigh himself easily at home, so not sure how weights are trending. 2 falls last week without injury." Outpatient cardiac monitoring (ZIO patch) 02/23/20: AF with rates 40 - 138. Frequent ventricular ectopy with PVC's, occasional couplets, rare triplets, and nonsustained VT with runs as long as 18 beats. Referred to EP Cardiology regarding tachy-zaid syndrome (appointment with Dr. See 04/26). History of multifactorial CHF- systolic, diastolic +/- valvular. Last echo 04/04/20: mild concentric LVH diffuse hypokinesis LV with LVEF 40-44% mitral valve clip mild-moderate MR mild aortic regurgitation mild TR mild enlargement aortic root mod enlargement ascending aorta est PA sys pressure 40-45 mm Currently admission CXR 1. Cardiomegaly with pulmonary edema. 2. Right greater than left bibasilar opacities suggest atelectasis versus pneumonitis. 3. Trace left and small right pleural effusions. -as per initial admitting physician Dr. Ruggiero "Exam, CXR, elevated pro-BNP consistent with exacerbation CHF (i.e., acute on chronic left ventricular systolic and diastolic heart failure)...No need to repeat echo at this time. No PATRICE or ARB due to CKD IV. No beta chuckie due to bradycardia. Consult Cardiology." -patient's home dose Lasix of prescribed furosemide 80 mg in the morning + 40 mg in the afternoon (but not taking afternoon dose due to urinary frequency, as per admission note) and initially started on Lasix IV 80 mg BID -04/14/2020 AM hospitalist assessment: patient currently on IV Lasix 80 mg BID and on nasal cannula of 2 liters/min. discussed his care Daughter Dyan: [phone] who is in nursing and she reports that patient is on room air at baseline so IV diuretics to continue is reasoanble at this time. Dyan is concern about patient's ambulation and his nursing staff in the telemetry reeys concern that patient is a fall risk and set him to bed alarm. On my exam, patient was able to sit upright on his own and ambulate to chair on his own power as the chair was next to the bed. Discussed with nursing staff that patient may need 1 to 1 monitoring if he is impulsive with following directions and can be a fall risk. Otherwise patient, denies any symptoms. He is not in distress. Ne does not report of acute pain. No other symptoms on review of systems. However, his daughter Dyan questions his recent cognitive status. His daughter Dyan reports she works in a dementia unit in nursing and she does not feel that patient has dementia. Hospitalist noted that admission urine analysis is negative and scott perezy no signs suggestive of infection at this time. Hospitalist will continue to assess his cognitive function while he is in hospital for fluid overload. -04/14/2020 cardiology assessment: " Patient with complex history as outlined above who presents now with signs and symptoms of decompensated systolic and diastolic heart failure secondary to reduction in diuretic dosing. Patient is responding to IV diuretics. Overall appears more comfortable by his own description and records. Patient intermittently confused at time of examination. Daughter has observe this at home as well Underlying history is notable for chronic atrial fibrillation with borderline tachybradycardia syndrome and patient and physicians have been contemplating pacemaker insertion to allow higher dose of medical therapies for arrhythmias. Discussed in detail with daughter Dyan. Continue IV diuretics. We will restart low-dose beta-chuckie with metoprolol succinate at 12.5 mg/day warranted for arrhythmias. Hold warf jens with consideration for possible pacemaker insertion while admitted Blood cultures ordered given mild mental status changes and ensure absence of bacteremia. MRI for confusion issues ordered in January 2020 without acute findings other than chronic lacunar infarct/microvascular disease" -04/15/2020: patient was given 3 doses of Ativan by night time doctor/night time nursing staff in the night time of 04/14/2020 because of behavioral issues of not cooperating with medical staff and is still sleeping by AM exam. Patient's INR is 6 despite coumadin held on 04/14/2020. Vitamin K 2.5 mg IV x 1 to be given. Holding the IV Lasix for now as rising BUN/creatinine of 57/2.6 and in context of patient's current drowsiness. oral medications held and IV Lasix held. due to his sleep apnea the oxymask was transitioned to BIPAP/CPAP settings. Patient then had labs drawn around 7 PM on 04/15/2020 with lactic acidosis of 3.9 and was given IV fluids by night time medical doctor 04/16/2020: it is unclear as to the patient's elevated lactic acid level as they remained elevated after IV by night time doctor but no evidence of infection at this time, patient's admission urine culture negative, admission blood cultures no growth to date, no fevers witnessed. patient to get additional IV fluids and repeat labs including procalcitonin levels at 10 AM. On day time hospitalist AM exam, the patient more arousable compared to previous morning. He cannot give answers to review of systems. Discussed with nursing staff that, the plan is to transition from BIPAP to oxymask or nasal cannula oxygen, then NPO, do dysphagia screening, formal speech and swallow studies, advance diet as tolerated and oral medications as tolerated. Will likely continue to hold off diuretics at this time (2) Elevated troponin: -Serum troponin 0.070 and trended down, as per admission physician Dr. Ruggiero "No chest pain. Nonobstructive coronary artery disease as noted below. Doubt acute coronary syndrome. Elevated troponin probably secondary to decompensated CHF +/- CKD." (3) Coronary artery disease: -as per admission notes "Cardiac cath Jun 2019 at [facility] demonstrated nonobstructive coronary artery disease. No ASA- allergic. Not on beta chuckie due to bradycardia. Continue statin. (4) Atrial fibrillation, chronic: Chronic AF with tachy-zaid syndrome Chronic anticoagulation with coumadin Supratherapeutic INR -INR is 3.2 on 04/14/2020 and coumadin held -INR 6 on 04/15/2020. vitamin K IV 2.5 mg given -INR is 4 on 04/16/2020. continue to hold coumadin (5) Tachy-zaid syndrome: -as per admission notes "recent ZIO monitor showed AF with rates ranging from 40 to 138." he was Referred to [facility] Cardiology for possible pacemaker. -unclear to suggest whether a correlation of falls at home to zaid or tachy arrhythmias. -monitor on telemetry and have PT/OT assessments -possible pacemaker placement by cardiology later on this admission (6) Nonsustained ventricular tachycardia: -Noted on recent ZIO monitor when outpatient (7) Mitral valve regurgitation: -Status post mitral valve clip at [facility] Jun 2019. (8) Sleep apnea: -Continue CPAP 11 cm or BIPAP when sleeping (9) CKD (chronic kidney disease), stage IV: Acute Kidney Injury on Chronic Kidney Disease -Baseline creatinine runs around 2 -elevations in recent creatinine after initial diuretics. monitor after IV fluids (10) Hypokalemia: -admission serum potassium 2.8 possibly a hypokalemia secondary to diuretic therapy. -he was given potassium supplements and 04/14/2020 serum potassium 3.5 -hold off further potassium supplements unless serum potassium less than 3.5 to 4 (11) Diabetes mellitus type 2 with complications: -Currently diet-controlled. -Tight control not indicated given advanced age and comorbidities. (12) Dyslipidemia: History of stroke in the past -MRI for confusion issues ordered in January 2020 without acute findings other than chronic lacunar infarct/microvascular disease -on home atorvastatin. -on 1 to 1 observation. AVOID ATIVAN IN FUTURE THIS CAN CAUSE EXCESSIVE SEDATION (13) COVID-19 ruled out: -SARS-CoV-2 antigen and PCR both negative on admission (14) DVT prophylaxis: -follow INR levels (15) Do not resuscitate status: -Code Status is DNR/DNI as confirmed on admission by admitting physician and as confirmed by daughter Dyan on the phone (16) Discharge planning issues: -case management needed as family preference is for patient to avoid placement to physical therapy center or SNF at this time once hospital stay completed -follow PT/OT notes Family contacts Son Jude: [phone] Daughter Dyan: [phone] Nephew Benjamin is physician Admission and Anticipated Discharge Date Admission Date: April 13, 2020 Subjective 04/16/2020: it is unclear as to the patient's elevated lactic acid level as they remained elevated after IV by night time doctor but no evidence of infection at this time, patient's admission urine culture negative, admission blood cultures no growth to date, no fevers witnessed. patient to get additional IV fluids and repeat labs including procalcitonin levels at 10 AM. On day time hospitalist AM exam, the patient more arousable compared to previous morning. He cannot give answers to review of systems. Discussed with nursing staff that, the plan is to transition from BIPAP to oxymask or nasal cannula oxygen, then NPO, do dysphagia screening, formal speech and swallow studies, advance diet as tolerated and oral medications as tolerated. Will likely continue to hold off diuretics at this time Review of Systems Review of Systems: All systems reviewed & are unremarkable except as noted in Subjective Physical Exam Constitutional: + altered mental status Eyes: PERRL, conjunctivae normal, anicteric sclerae ENMT: external ear and nose normal, oropharynx normal Neck: normal visual inspection Respiratory: normal respiratory effort (on BIPAP) Cardiovascular: Rate/Rhythm: regular rate, regular rhythm and + irregularly irregular Chest (Breasts): Chest: normal inspection of chest Gastrointestinal (Abdomen): normal bowel sounds, soft, nontender, no hepatosplenomegaly Inspection/Auscultation: abdomen normal to inspection and normal bowel sounds Percussion/Palpation: abdomen soft Musculoskeletal: Head/Neck/Chest: normocephalic and head atraumatic Neurologic: moves all extremities and awake Psychiatric: Eye Contact: + poor eye contact Results & Data Results & Data ([facility]) Vital Signs (Past 12 Hours) Vital Signs Temp Pulse Pulse Resp BP Pulse Ox 04/16/20 07:00 81 04/16/20 02:03 74 20 98 04/15/20 23:32 102 H 04/15/20 23:09 36.2 C L 82 22 127/71 97 04/15/20 22:29 102 H 24 90
[2020-04-16 10:25] LABS: BUN Creatinine Ratio 25.8 (10-20); Calcium 9.1 mg/dl (8.5-10.1); Creatinine Clr Calc Pharmacy 22.6 ml/min; Est GFR (African American) 22.7; Est GFR (Non-African American) 19.6; Potassium 4.6 mmol/L (3.5-5.1)
[2020-04-16] MEDS ORDERED: PIPERACILL/TAZOBAC CONSULT ACTIVE PRN (11:28)
[2020-04-16] MEDS ORDERED: PIPERACILLIN/TAZOBACTAM 2.25 GM in DEXTROSE 5% 100 ML IV SCH (11:30)
--- NOTE | 2020-04-16 11:30 | Communication Note ---
Date of Service: April 16, 2020 continues to be lethargic, lactic acid continues to be high, procalcitonin levels pending. at this point further Iv fluids given and will empirically start Zosyn antibiotic (renally dose) given lack of improvements of mental status
--- NOTE | 2020-04-16 11:35 | Cardiology Progress Note ---
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 Course notable for decline in mental status and marginal respiratory status Plan: Patient remains somewhat somnolent this morning . Chest x-ray little change with chronic interstitial changes slight increase in markings since admission. Exam without significant volume overload Agree with current plan, antibiotics added with raised concern regarding possible aspiration No bradycardia arrhythmias. Patient not taking oral medications (2) Atrial fibrillation, chronic: No significant arrhythmias on telemetry with persistent atrial fibril lation and no profound bradycardia (3) Tachy-zaid syndrome: (4) Nonsustained ventricular tachycardia: (5) Diabetes mellitus type 2 with complications: (6) Cardiomyopathy: (7) Confusion: Admission and Anticipated Discharge Date Admission Date: April 13, 2020 Subjective Patient seen and examined, chart, medications, telemetry reviewed. Events of the past 2 days noted Patient arousable but still somnolent. Loose rattling cough. Review of systems unobtainable Review of Systems Review of Systems: Unobtainable due to cognitive status Physical Exam Constitutional: + acute distress and + lethargic Eyes: PERRL, conjunctivae normal, anicteric sclerae ENMT: external ear and nose normal, oropharynx normal Neck: trachea midline, no thyromegaly Respiratory: normal respiratory effort, lungs clear to auscultation Auscultation: + rales (Few basilar, scattered fine crackles) Cardiovascular: Rate/Rhythm: + irregularly irregular Heart Sounds: normal S1 and normal S2; no gallop and no murmur Palpation: normal PMI Vessels: normal carotid upstroke and radial pulses present; no JVD and no carotid bruit Extremities: + edema (2+) Gastrointestinal (Abdomen): normal bowel sounds, soft, nontender, no hepatosplenomegaly Musculoskeletal: no cyanosis or clubbing, extremities motor strength 5/5 Skin: no rashes, warm and dry Neurologic: PERRL, EOMI, accommodation nl, no face palsy, no dysarthria Psychiatric: A+Ox3, euthymic affect Results & Data ([facility]) Vital Signs (Past 12 Hours) Vital Signs Temp Pulse Pulse Resp BP Pulse Ox 04/16/20 08:56 36.3 C L 92 H 20 125/69 92 04/16/20 07:00 81 04/16/20 02:03 74 20 98 04/15/20 23:32 102 H
[2020-04-16] MEDS: ISOSORBIDE DINITRATE 10 MG TAB PO SCH ×2 (11:37→12:18)
[2020-04-16] MEDS: ATORVASTATIN 10 MG TAB PO SCH (11:37)
[2020-04-16] MEDS: UMECLIDINIUM BROMIDE 62.5MCG/BLISTER 7 PUFFS/INHALER INH SCH (11:37)
[2020-04-16] MEDS: MAGNESIUM OXIDE 400 MG TAB PO SCH (11:37)
[2020-04-16] MEDS: FLUTICASONE/VILANTEROL 200/25MCG 14 PUFFS/INHALER INH SCH (11:37)
[2020-04-16] MEDS: METOPROLOL SUCC 25MG EXT REL TAB PO SCH (11:38)
[2020-04-16] MEDS ORDERED: PIPERACILLIN/TAZOBACTAM 3.375 GM in DEXTROSE 5% 100 ML IV ONE (12:30)
--- NOTE | 2020-04-16 13:13 | Magnetic Resonance Report ---
Brain MRI WITHOUT CONTRAST HISTORY: altered mental status TECHNIQUE: Multiplanar multisequence MRI of the brain was performed without the use of contrast. COMPARISON STUDY: Head CT 06/01/2013. FINDINGS: There is no mass, hematoma, midline shift, or acute infarct. The paranasal sinuses are helene r. The mastoid air cells are clear. The ventricles and sulci demonstrate mild age-related involutiona l changes. Scattered foci of T2 hyperintensity seen within the periventricular and subcortical white matter are nonspecific but suggestive of mild microvascular ischemic changes. The major vascular flow voids at the skull base are well-maintained. Suboptimal evaluation due to the motion artifact. 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 IMPRESSION: 1. Suboptimal study due to the motion artifact. No definite acute intracranial abnormality. 2. Mild atrophy and microvascular ischemic changes. ACT 112: Negative or not required by law. Electronically signed by: Eusebio Salcedo M.D. 04/16/2020 1:11 PM
[2020-04-16 15:29] LABS: Albumin Level 2.5 gm/dl (3.4-5.0); BUN Creatinine Ratio 24.2 (10-20); Calcium 9.7 mg/dl (8.5-10.1); Creatinine Clr Calc Pharmacy 20.8 ml/min; Est GFR (African American) 20.5; Est GFR (Non-African American) 17.7; Potassium 4.7 mmol/L (3.5-5.1)
[2020-04-16 15:55] LABS: Albumin Globulin Ratio 0.5 (0.9-2); Total Protein 7.5 gm/dl (6.4-8.2)
[2020-04-16 16:26] LABS: Bilirubin,Total 3.8 mg/dl (0.2-1)
[2020-04-16] MEDS ORDERED: DEXTROSE 5% 500 ML IV SCH (16:30)
[2020-04-16] MEDS ORDERED: DEXTROSE 5% 1,000 ML IV SCH (16:30)
[2020-04-16] MEDS ORDERED: D5W AND 1/2NSS 1,000 ML IV SCH (17:00)
[2020-04-16] MEDS ORDERED: SODIUM BICARBONATE 8.4% 100 MEQ in DEXTROSE 5% 1,000 ML IV SCH (17:00)
--- NOTE | 2020-04-16 17:14 | XRay Report ---
XR chest 1V portable HISTORY: 89 years-old Male follow lung infiltrates follow up study in a patient with pulmonary opaci ties COMPARISON: Chest radiograph of same day at 7:53 AM TECHNIQUE: Portable AP view of the chest FINDINGS: Cardiac silhouette is enlarged. Calcified plaque the thoracic aorta. No pneumothorax. Trace pleural e ffusions. Pulmonary vascular congestion. Bilateral reticular opacities are noted with mildly progress ed bibasilar consolidation. Degenerative changes of the shoulders and spine. IMPRESSION: 1. Cardiomegaly with persistent reticular opacities suggestive of pulmonary edema. 2. Trace pleural effusions with mildly progressed right greater than left bibasilar airspace opacitie s suggestive of atelectasis versus pneumonitis. ACT 112: Negative or not required by law. The above report was generated using voice recognition software. It may contain grammatical, syntax o r spelling errors. Electronically signed by: Elan Colon M.D. 04/16/2020 5:13 PM
--- NOTE | 2020-04-16 17:53 | Communication Note ---
Date of Service: April 16, 2020 Acute metabolic encephalopathy Anion Gap Acidosis Transaminitis Acute renal failure, possible cardiorenal syndrome Hypoglycemia Hospitalist had multiple discussions with his son Jude, his daughter Dyan, and nephew Benjamin who is a physician. Explain to them hospital course to date including decline in his mental status since Ativan medications during hospital stay and now increase in the lactic acid with increasing anion gap acidosis, recent hypoglycemic episode. explains that IV fluids to help correct acidosis and renal function and to clear toxic metabolites including ativan, can also put patient as risk of acute respiratory failure. Jude is the lead decision maker of the family and allows for Code Status to be changed at this time from DNR/DNI to full code discussed with ICU physician of his case including recent increase in liver function enzymes, and increase in creatinine concerning for possible cardiorenal syndrome ICU physician accepts patient to ICU for closer monitoring
--- NOTE | 2020-04-16 17:59 | Critical Care Consultation ---
Date of Consultation April 16, 2020 Assessment & Plan (1) Acute congestive heart failure: Patient with multiorgan failure including acute liver failure, acute renal failure, encephalopathy and acute hypoxemic respiratory failure. He also has evidence of severe lactic acidosis. We will repeat CBC, BMP and lactic acid. His proBNP is very elevated. I suspect he has acute systolic CHF leading to congestive hepatopathy and possibly cardiorenal syndrome. He needs an updated echocardiogram to evaluate his EF. His last echocardiogram was in November. We will check an ammonia level. Hold all sedating medications. He is at risk for requiring mechanical ventilation. We will hold further fluid resuscitation at this time. We will likely give a dose of Lasix later this evening. Continue broad-spectrum antibiotics. COVID-19 testing was negative. We will repeat a urinalysis and blood cultures. He does have evidence of thrombocytopenia. TTP, ITP, atypical HUS, consumptive coagulopathy all remain a possibility. We will check a peripheral smear and check a fibrinogen level. He is hyperglycemic. I will change his bicarbonate drip to D5W with 3 ampoules of bicarb at a rate of 75 cc. Will have to hold all p.o. medications and make him n.p.o. given his altered mental status. Start Protonix 40 mg daily for GI prophylaxis. Recheck INR tomorrow given elevated INR level. Hold all anticoagulation. Liver ultrasound is ordered. Will give FFP and vitamin K if signs of bleeding are evident. He received 2.5 mg of vitamin K on 04/15. He was previously on warfarin. Patient's prognosis is extremely poor. He is in multiorgan failure. I think a more palliative approach would be appropriate in this patient. We will discuss with the family. I had a lengthy discussion with the hospitalist regarding the patient's status. He notes that he also had a discussion with the family. His CODE STATUS was changed from DNR to full code earlier in the day, unfortunately. I had a discussion with the patient's bedside nurse as well. CRITICAL CARE TIME - I have personally spent 51 minutes of critical care time in the direct management of this patient. This is a life/limb threatening event. This includes time spent evaluating patient, direct bedside care, chart review, placing orders, interpretation of diagnostic studies, discussion with consultants, patient, and family members, as well as other required patient management activities. This time is exclusive of all separately billable procedures, and teaching time and separate from and in addition to any other critical care service time. (2) Cardiomyopathy: (3) Pulmonary edema: (4) GI (acute kidney injury): (5) Metabolic encephalopathy: (6) Thrombocytopenia: (7) Atrial fibrillation, chronic: History of Present Illness Reason for Consultation: Lactic acidosis, renal failure and altered mental status Requesting Physician: Dr. Ca Attending Physician: Minh Ca MD History of Present Illness 89-year-old male with past medical history of atrial fibrillation, ventricular tachycardia, tachybradycardia syndrome, diabetes mellitus type 2, chronic systolic heart failure, secondary pulmonary hypertension, aortic valve sclerosis, mitral valve regurgitation, abdominal aortic aneurysm and history of CVA who presented to the hospital on 04/13/2020 due to increasing shortness of breath. Patient has a history of chronic orthopnea. He was given 80 mg twice daily of IV Lasix on his admission. He is currently 2.9 L positive since hospital admission. VBG completed today with a pH of 7.38/PCO2 39. His most recent chemistry at 2:58 PM suggest worsening anion gap acidosis with an anion gap of 16. BUN of 73. Creatinine 3.02. Glucose was 62. Lactic acidosis with lactate of 5.6. LFTs worsening as well with an elevated total bilirubin of 3.8. Albumin of 2.5. Procalcitonin was within normal limits. Due to worsening confusion and MRI of the brain was completed which was deemed to be a suboptimal study due to motion artifact. No acute intracranial abnormality was noted. Chest x-ray most recently demonstrates cardiomegaly with reticular opacities suggestive of pulmonary edema. COVID-19 testing was negative on 04/13/2020. His hemoglobin is stable at 14.2, however, his platelet count is decreasing to 84,000. Notably, patient received 3L of fluid boluses today. Patient is currently is unable to follow commands or answer questions appropriately. Currently on CPAP 11 cm H20 with 3L of oxygen bleed in. Allergies Allergy/AdvReac Type Severity Reaction Status Date / Time aspirin Allergy Intermediate HIVES Verified 04/13/20 18:09 levofloxacin [From Levaquin] AdvReac Severe Delirium Verified 04/13/20 18:09 oxycodone AdvReac Mild INTOLERATE Verified 04/13/20 18:09 TO PERCOCET OR OXYCONTIN Home Medications Medication Instructions Recorded Confirmed Type Spiriva with HandiHaler 1 cap INHALATION QAM 03/27/19 04/13/20 History albuterol sulfate [Ventolin HFA] 1 puff INHALATION Q6H PRN 03/27/19 04/13/20 History atorvastatin 10 mg PO QAM 03/27/19 04/13/20 History cetirizine 5 mg PO HS 03/27/19 04/13/20 History fluticasone propion-salmeterol 1 inh INHALATION BID 03/27/19 04/13/20 History [Advair Diskus] hydroxyzine HCl 10 mg PO QID PRN 03/27/19 04/13/20 History warfarin See Rx Instructions .ROUTE .COMPLEX 03/27/19 04/13/20 History isosorbide dinitrate 10 mg PO BID@0700,1200 #30 tab 03/31/19 04/13/20 Rx ferrous sulfate [iron] 325 mg PO DAILY 11/29/19 04/13/20 History furosemide [Lasix] See Rx Instructions .ROUTE .COMPLEX 04/13/20 04/13/20 History Patient History Medical History (Updated 04/16/20 @ 18:00 by Jono Marcus MD) Abdominal aortic aneurysm s/p AAA repair in 2012 at [facility]) GI (acute kidney injury) Atrial fibrillation, chronic Cerebrovascular disease "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" CKD (chronic kidney disease), 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 Coronary artery disease nonobstructive per cath [facility] Jun 2019 Diabetes mellitus type 2 with complications Diabetic neuropathy Do not resuscitate status POLST 2016 Dyslipidemia Metabolic encephalopathy Mitral valve regurgitation Nonsustained ventricular tachycardia Sleep apnea Tachy-zaid syndrome Thrombocytopenia Surgical History Status post abdominal aortic aneurysm repair " 2012 [facility]" Status post cardiac catheterization [facility] Jun 2019- nonobstructive disease [30% LAD, 50% 2nd diag, 30% circ, 30% RCA] Status post mitral valve repair Status post total knee replacement Family History Mother Thyroid disorder Father Colorectal cancer Social History Smoking Status: Former smoker Years Smoked: 51; Hx Alcohol Use: No Hx Substance Use: No Preferred Language: Danish Communication Ability: Effective Department Of Soci[employer] Chair Required: No Beliefs That Will Affect Care: None marital status: / marital status details: in October 2017 Current Living Situation: Alone Other Information That Helps Us Care for You: No Feels Safe at Home: Yes Safety Concerns: Feels Safe At This Time Assistive Devices: CPAP and Oxygen - Continuous Review of Systems Review of Systems: All systems reviewed & are unremarkable except as noted in HPI & below Physical Exam Constitutional: + acute distress and + ill appearing Eyes: PERRL, conjunctivae normal, anicteric sclerae ENMT: external ear and nose normal, oropharynx normal Neck: normal visual inspection Respiratory: + tachypneic Diffuse crackles bilaterally with diminished breath sounds at the bases Cardiovascular: Rate/Rhythm: + tachycardic and + irregularly irregular Vessels: + JVD Extremities: + edema Gastrointestinal (Abdomen): normal bowel sounds, soft, nontender, no hepatosplenomegaly Musculoskeletal: no cyanosis or clubbing, extremities motor strength 5/5 Skin: no rashes, warm and dry Neurologic: PERRL, EOMI, accommodation nl, no face palsy, no dysarthria Psychiatric: A+Ox3, euthymic affect Results & Data Results & Data ([facility]) Vital Signs (Past 12 Hours) Vital Signs Temp Pulse Pulse Resp BP Pulse Ox 04/16/20 15:25 97.5 F L 89 18 124/82 96 04/16/20 08:56 97.3 F L 92 H 20 125/69 92 04/16/20 07:00 81 I reviewed the vital signs, labs and imaging Coding Level of Care Code Critical Care 1st 30-74 mins Diagnoses Acute congestive heart failure I50.21 Heart failure type: systolic Cardiomyopathy I42.9 Pulmonary edema J81.0 Chronicity: acute GI (acute kidney injury) N17.9 Metabolic encephalopathy G93.41 Thrombocytopenia D69.6 Atrial fibrillation, chronic I48.20 Time Spent (min) 51 (1) Acute congestive heart failure Heart failure type: systolic Qualified Code(s): I50.21 - Acute systolic (congestive) heart failure (2) Pulmonary edema Chronicity: acute Qualified Code(s): J81.0 - Acute pulmonary edema
[2020-04-16] MEDS ORDERED: STAT IV STA (18:09)
[2020-04-16] MEDS ORDERED: SODIUM BICARBONATE 8.4% 150 MEQ in DEXTROSE 5% 1,000 ML IV SCH (18:30)
--- NOTE | 2020-04-16 18:34 | Ultrasound Report ---
US liver HISTORY: 89 years-old Male transaminitis acutely elevated LFTs COMPARISON: Chest CT 03/27/2019 TECHNIQUE: Multiple real-time sonographic images of the abdominal right upper quadrant were obtained assessing grayscale appearance and color flow FINDINGS: Limited exam secondary to patient condition and body habitus. Pancreas is obscured by bowel gas. Nonspecific mildly heterogeneous appearance of the liver with slig htly increased echogenicity. Trace perihepatic ascites. No hepatic mass lesion identified. Common mari e duct 7 mm, normal for patient age. Sludge-filled gallbladder without shadowing cholelithiasis. Gall bladder wall is mildly thickened measuring up to 4 mm. Echogenic right kidney with decreased cortical medullary differentiation. Mild right renal atrophy wi thout hydronephrosis. Cyst of the superior pole right kidney, 1.5 cm. IMPRESSION: 1. Hepatic steatosis. 2. Trace perihepatic ascites. 3. Sludge-filled gallbladder with mild nonspecific gallbladder wall thickening. No definite cholelith iasis. 4. Echogenic right kidney suggests chronic medical renal disease. ACT 112: Negative or not required by law. The above report was generated using voice recognition software. It may contain grammatical, syntax o r spelling errors. Electronically signed by: Elan Colon M.D. 04/16/2020 6:32 PM
[2020-04-16 18:55] LABS: iSTAT Allen Test Pass; iSTAT Art Bld Gas pCO2 Correct 31 mmHg (35-46); iSTAT Art Bld Gas pH Corrected 7.402 (7.35-7.45); iSTAT Arterial Blood Gas HCO3 19 meg/L (19-24); iSTAT Arterial Blood Gas pCO2 31 mmHg (35-46); iSTAT Arterial Blood Gas pO2 99 mmHg (80-95); iSTAT Arterial Blood Gas pO2 C 99; iSTAT Carbon Dioxide 20 mmol/L (24-31); iSTAT Hematocrit 47 % (42-52); iSTAT Potassium 4.6 mmol/L (3.3-5.0); iSTAT Site L Radial; iSTAT Sodium 140 mmol/L (135-144)
[2020-04-16 19:45] LABS: Hematocrit (blood only) 45.6 % (42-52); Hemoglobin 14.6 g/dL (14.0-18.0); Mean Corpuscular Hemoglobin 30.5 pg (25-34); Mean Corpuscular Volume 95.4 fL (80-100); Nucleated RBC # (auto) 0.08 K/uL (0-0); Nucleated RBC % (auto) 0.7 %; RDW Coefficient of Variation 19.4 % (11.5-14.5); RDW Standard Deviation 63.1 fL (36.4-46.3); Red Blood Count 4.78 M/uL (4.7-6.1); White Blood Count 11.54 K/uL (4.8-10.8)
[2020-04-16] MEDS ORDERED: FUROSEMIDE 80 MG in SYRINGE 0 ML IV ONE (19:45)
[2020-04-16 19:47] LABS: Fibrinogen 215 mg/dl (184-400); Partial Thromboplastin Ratio 1.5; Partial Thromboplastin Time 42.4 Seconds (21.0-31.0)
[2020-04-16 20:09] LABS: Albumin Level 2.5 gm/dl (3.4-5.0); BUN Creatinine Ratio 23.6 (10-20); Calcium 9.5 mg/dl (8.5-10.1); Creatinine Clr Calc Pharmacy 19.9 ml/min; Est GFR (African American) 19.4; Est GFR (Non-African American) 16.8; Potassium 4.9 mmol/L (3.5-5.1)
[2020-04-16 20:30] LABS: Hepatitis B Surface Antigen Neg (Neg)
[2020-04-16 20:34] LABS: Echinocytes 2+; Immature Granulocytes # (auto) 0.02 K/uL (0.00-0.02); Immature Granulocytes % (auto) 0.2 %; Lymphocytes # (auto) 0.88 K/uL (1.2-3.4); Lymphocytes % (auto) 7.6 %; Monocytes # (auto) 0.85 K/uL (0.11-0.59); Monocytes % (auto) 7.4 %; Neutrophils # (auto) 9.79 K/uL (1.4-6.5); Neutrophils % (auto) 84.8 %; Ovalocytes 1+; Platelet Count 94 K/uL (130-400)
[2020-04-16 20:39] LABS: Bilirubin,Total 3.9 mg/dl (0.2-1); Total Protein 7.3 gm/dl (6.4-8.2); Troponin I 0.125 ng/ml (0-0.045)
[2020-04-16 20:40] LABS: Albumin Globulin Ratio 0.5 (0.9-2); Globulin 4.8 gm/dl (2.5-4.0)
[2020-04-16 20:59] LABS: Hepatitis C IgG 13Yrs+Old_Rflx Neg (Neg)
[2020-04-16] MEDS: PIPERACILLIN/TAZOBACTAM 3.375 GM in DEXTROSE 5% 100 ML IV SCH (21:28)
[2020-04-17] MEDS: PIPERACILLIN/TAZOBACTAM 3.375 GM in DEXTROSE 5% 100 ML IV SCH (01:46)
[2020-04-17 04:57] LABS: iSTAT Allen Test Pass; iSTAT Arterial Blood Gas HCO3 19 meg/L (19-24); iSTAT Arterial Blood Gas pCO2 37 mmHg (35-46); iSTAT Arterial Blood Gas pH 7.33 (7.35-7.45); iSTAT Arterial Blood Gas pO2 115 mmHg (80-95); iSTAT Carbon Dioxide 20 mmol/L (24-31); iSTAT FiO2 30 %; iSTAT Site R Radial
[2020-04-17 07:31] LABS: Alanine Aminotransferase 191 U/L (12-78); Albumin Level 2.3 gm/dl (3.4-5.0); BUN Creatinine Ratio 24.4 (10-20); Blood Urea Nitrogen 80 mg/dl (7-18); Calcium 9.2 mg/dl (8.5-10.1); Carbon Dioxide 25 mmol/L (21-32); Chloride 103 mmol/L (98-107); Creatinine Clr Calc Pharmacy 19.5 ml/min; Est GFR (African American) 18.6; Glucose 90 mg/dl (70-99); INR 4.2 (0.9-1.1); Lipase 500 U/L (73-393); Magnesium 2.5 mg/dl (1.8-2.4); Potassium 5.1 mmol/L (3.5-5.1); Prothrombin Time 40.7 Seconds (9.0-12.0); Sodium 140 mmol/L (136-145)
[2020-04-17 07:34] LABS: Hematocrit (blood only) 44.3 % (42-52); Hemoglobin 14.1 g/dL (14.0-18.0); Mean Corpuscular Hemoglobin 30.4 pg (25-34); Mean Corpuscular Hgb Conc 31.8 g/dL (32-36); Mean Corpuscular Volume 95.5 fL (80-100); Nucleated RBC # (auto) 0.06 K/uL (0-0); Nucleated RBC % (auto) 0.7 %; Platelet Count 81 K/uL (130-400); RDW Coefficient of Variation 19.3 % (11.5-14.5); RDW Standard Deviation 63.4 fL (36.4-46.3); Red Blood Count 4.64 M/uL (4.7-6.1); White Blood Count 9.84 K/uL (4.8-10.8)
[2020-04-17 07:35] LABS: Anisocytosis Present; Basophils # (auto) 0.01 K/uL (0-0.2); Basophils % (auto) 0.1 %; Echinocytes 1+; Immature Granulocytes # (auto) 0.03 K/uL (0.00-0.02); Immature Granulocytes % (auto) 0.3 %; Lymphocytes # (auto) 0.96 K/uL (1.2-3.4); Lymphocytes % (auto) 9.8 %; Monocytes # (auto) 0.56 K/uL (0.11-0.59); Monocytes % (auto) 5.7 %; Neutrophils # (auto) 8.28 K/uL (1.4-6.5); Neutrophils % (auto) 84.1 %; Platelet Estimate Decreased (Normal)
[2020-04-17 07:37] LABS: Alkaline Phosphatase 121 U/L (45-117); Aspartate Aminotransferase 339 U/L (15-37); Bilirubin Direct 2.8 mg/dl (0-0.2); Bilirubin,Total 4.3 mg/dl (0.2-1); NT Pro B Type Natriuretic Pept > 35000 pg/ml (0-1800); Phosphorus 5.6 mg/dl (2.5-4.9); Total Protein 6.9 gm/dl (6.4-8.2)
[2020-04-17] MEDS ORDERED: FUROSEMIDE 160 MG in SYRINGE 0 ML IV ONE (08:09)
[2020-04-17] MEDS: UMECLIDINIUM BROMIDE 62.5MCG/BLISTER 7 PUFFS/INHALER INH SCH (08:27)
[2020-04-17] MEDS: FLUTICASONE/VILANTEROL 200/25MCG 14 PUFFS/INHALER INH SCH (08:27)
[2020-04-17] MEDS: NYSTATIN POWDER 15GM BTL EXT SCH ×2 (08:28→20:22)
[2020-04-17] MEDS ORDERED: FUROSEMIDE IV ONE (08:30)
--- NOTE | 2020-04-17 08:33 | Critical Care Progress Note ---
Date of Service April 17, 2020 Assessment & Plan (1) Acute congestive heart failure: Reason Critically Ill: 89-year-old male with a PMHx significant for HFrEF, Dm2, Mitral valve prolapse s/p mitral valve clip, Afib, tachy-woody syndrome,nonobstructive CAD, CKD who presented with dyspnea and increased work of breathing and who was admitted for CHF exacerbation and multiorgan failure. Goals of Care: Discussion on phone this AM with transplant case manager, myself and patient's daughter Dyan who has been taking lead of decisions for Mr. Hyde's care. discussed that worsening liver, heart, and kidney failure has poor prognosis and patient could benefit from hospice care. Daughter was in agreeme nt, stating that prior to admission the family had been providing 07/12 care and that Mr. hyde was never alone at home by himself anymore, and that his decline in health really started in summer after a fall at home. Home Hospice options and nursing unit coordinator options discussed; she seems very familiar with home health care as she is a nurse provider for a private care agency. Ultimately decided that hospice would be a better option to allow focus on quality of life and time at home with family, which would include discontinuing life extending treatments and focusing on pain and comfort care. She will discuss options with her brother and continue discussion re: hospice agencies with human services care specialist. Palliative care team also consulted, and daughter made aware that she may receive a phone call from them to discuss options as well. Will continue attempting to diuresis fluid for patient's comfort and ease of breathing. Neuro - [facility] ICU: Sedation: none Analgesia: tylenol Metabolic Encephalopathy - GCS 7, likely secondary to severe lactic acidosis and worsening renal failure - mild improvement from yesterday when he was apparently completely obtunded and not moving at all, however prognosis continues to be poor. - brain MRI negative for hematoma, midline shift. no acute changes noted. Cardiac - HFrEF - ECHO today with worsened EF 30-35%, biatrial enlargement, aortic sclerosis, mild MR, moderate TR, moderate global hypokinesis of L ventricle, moderate dilation of IVC - worsening HF on suboptimal therapy, with patient noncompliant with diuretic regimen - UOP 400 ml after getting 80 IV lasix yesterday evening. Will attempt to further diurese for symptomatic management with 160 mg IV lasix today. - proBNP increased from 28k to >35k indicative of worsening heart failure - weight 99.1 kg this morning, records showing weight in 03/2019 was up to 116 kg slowly decreasing since then Afib - holding coumadin with elevated INR at 4.2 - rate controlled in 80's - 110's Tachy Woody Syndrome - no bradycardic events this admission - appreciate cardiology's continuing support and recommendations Respiratory - Respiratory Alkalosis - incomplete compensation for primary metabolic lactic acidosis - increased oxygen requirement of 4L oxymask from baseline - CXR showing worsening pulmonary edema with obscuration of the L diaphragmatic border - on bipap of 10/5 overnight for respiratory support GI - Congestive Hepatopathy causing Acute Liver Failure - hepatic viral panel negative for Hep Bs Ag and hep C. hep A IgM and Hep B core Ag pending. - transaminases continue to rise with AST 339, ALT 191, Alkphos 121 - ammonia decreased to 15.9 however no drastic improvement in mental status - lipase down to 500 from 800, likely secondary to fluid congestion/intraabdominal hypertension - platelets remain low at 81 - INR 4.2, PT 40.7 - liver US 04/16: hepatic Steatosis, trace perihepatic ascites, sludge filled Gallbladder, nonspecific wall thickening without gallstones, right kidney echogenic and indicative of chronic renal disease Protein Calorie Malnutrition - ALbumin 2.3, total protein 6.9 - maintain NPO status while obtunded RENAL/LYTES - Acute Renal Injury superimposed on Chronic Kidney Disease - creatinine continues to rise, today up to 3.28 with BUN 80 - calcium, mag, phos increased likely secondary to poor clearance - minimally responsive to 80 IV lasix yesterday. was noncompliant with home regimen of 80 PO AM and 40 PO PM (taking only AM due to frequent urination). - will attempt further diuresis with 160 mg IV lasix today - maintain robins to monitor UOP and kidney function Metabolic Acidosis with Anion Gap due to Lactic Acidosis - ABG @ 4AM 7.33/37/04/04 on 10 over 5 Bipap with 30% FIO2 - lactate increasing up to 6.2, unclear etiology - possibly bowel ischemia vs septic etiology; unable to image with CT due to elevated creatinine - No concerns at this time. ENDO - DM2 - SSI while NPO - A1c in November 2019 6.0 HEME - Thrombocytopenia - likely secondary to acute liver failure, previously normal at 153 in previous admissions - petechial rash on upper abdomen, no rashes or signs of bleeding elsewhere - fibrinogen WNL at 215 yesterday - Stable H&H. Supratherapeutic INR - coumadin held as above - continue trending PT/INR ID - No concern for infection at this time - afebrile, labile WBC - procal 0.18, bcx negative at 48 hours, INTEGUMENTARY - Rashes as above - nystatin cream for ring surrounding umbilicus; appears to be pressure injury from skin overlying itself? LINES/IV ACCESS - PIVs intact. DVT PROPHYLAXIS - held in setting of supratherapeutic INR Thank you for allowing us to be part of this patient's care. Please refer to 's documentation for any further recommendations. 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 Man was the resident-physician during care of patient. I separately evaluated patient for ibarra portions of the history and the exam. I was present during the critical portion of medical decision making, and I discussed the case with the resident. I generally agree with the findings and plan except for any additions/exceptions noted. Patient with evidence of worsening lactic acidosis, renal failure and congestive heart failure. Echo with worsening ejection fraction. I discussed this with Dr. Kingsley Preston. We gave a dose of 150 mg of IV Lasix today. We considered starting dobutamine to improve his forward flow. However, it seems that the family is considering full comfort measures and hospice at this time. A palliative care consult has been placed. Patient is currently a DO NOT RESUSCITATE and DO NOT INTUBATE. He should likely be able to transfer to the floor or be discharged home with hospice today. Patient was discussed on multidisciplinary rounds. I have personally spent 41 minutes of critical care time in the direct management of this patient. This is a life/limb threatening event. This includes time spent evaluating patient, direct bedside care, chart review, placing orders, interpretation of diagnostic studies, discussion with consultants, patient, and/or family members regarding treatment decisions, as well as other required patient management activities. This time is exclusive of all separately billable procedures, and teaching time and separate from and in addition to any other critical care service time. Subjective Responsive to pain, not responsive to command, not opening eyes spontaneously or to command. limited ROS. Review of Systems Review of Systems: Unobtainable due to cognitive status Physical Exam Physical Exam: VITAL SIGNS - Vital signs and nursing notes were reviewed. GENERAL - 89-year-old M laying in bed with eyes closed, frequently jerking arms and moving legs around spontaneously. Not speaking. SKIN - periumbilical erythematous ring, with petechial nonblanching rash on upper abdomen BL. multiple small lacerations and wounds on shins bilaterally HEAD - NC/AT. EYES -Closed, not opening to command NOSE - wearing Oxymask for O2 delivery LUNGS - grossly loud rhonchorous breath sounds in all anterior lung shahid CARDIAC - difficult to auscultate due to lungs sounds.regular rate, irregularly irregular rhythm ABDOMEN -soft nontender nondistended with normal bowel sounds. EXTREMITIES - No clubbing or peripheral cyanosis. No pretibial edema present. radial and dorsalis pedis pulses palpated bilaterally. NEUROLOGIC - spontaneously moving but otherwise obtunded and unresponsive except for pain. GCS 7 Results & Data Results & Data ([facility]) Vital Signs (Past 12 Hours) Vital Signs Temp Pulse Resp BP Pulse Ox 04/17/20 06:00 100 H 29 H 94 04/17/20 05:51 81 17 116/67 97 04/17/20 05:00 99 H 23 90 04/17/20 04:51 93 H 20 139/71 97 04/17/20 04:00 110 H 25 H 95 04/17/20 03:51 109 H 25 H 139/86 94 04/17/20 03:28 97 H 26 H 96 04/17/20 03:00 36.4 C L 110 H 22 96 04/17/20 02:51 100 H 29 H 127/75 95 04/17/20 02:40 100 H 21 124/94 96 04/17/20 02:00 119 H 22 96 04/17/20 01:52 123 H 24 127/104 H 95 04/17/20 01:00 96 H 26 H 04/17/20 00:51 97 H 21 112/90 04/17/20 00:00 102 H 22 04/16/20 23:51 99 H 29 H 119/68 95 04/16/20 23:30 101 H 29 H 96 04/16/20 23:00 36.8 C 97 H 25 H 95 04/16/20 22:52 99 H 20 119/73 96 04/16/20 22:30 98 H 22 95 04/16/20 22:00 87 20 95 04/16/20 21:51 81 19 119/61 97 04/16/20 21:00 87 21 95 04/16/20 20:51 100 H 21 134/73 95 Laboratory Results WBC 9.84 K/uL (4.8-10.8) 04/17/20 06:41 RBC 4.64 M/uL (4.7-6.1) L 04/17/20 06:41 Hgb 14.1 g/dL (14.0-18.0) 04/17/20 06:41 POC Hgb 16.0 g/dl (14.0-18.0) 04/16/20 18:37 Hct 44.3 % (42-52) 04/17/20 06:41 POC Hct 47 % (42-52) 04/16/20 18:37 MCV 95.5 fL (80-100) 04/17/20 06:41 MCH 30.4 pg (25-34) 04/17/20 06:41 MCHC 31.8 g/dL (32-36) L 04/17/20 06:41 RDW Std Deviation 63.4 fL (36.4-46.3) H 04/17/20 06:41 RDW Coeff of Dwayne 19.3 % (11.5-14.5) H 04/17/20 06:41 Plt Count 81 K/uL (130-400) L 04/17/20 06:41 MPV 12.6 fL (7.4-10.4) H 04/13/20 16:33 Immature Gran % (Auto) 0.3 % 04/17/20 06:41 Neut % (Auto) 84.1 % 04/17/20 06:41 Lymph % (Auto) 9.8 % 04/17/20 06:41 [place] % (Auto) 5.7 % 04/17/20 06:41 Eos % (Auto) 0.0 % 04/17/20 06:41 Baso % (Auto) 0.1 % 04/17/20 06:41 Neut # (Auto) 8.28 K/uL (1.4-6.5) H 04/17/20 06:41 Lymph # (Auto) 0.96 K/uL (1.2-3.4) L 04/17/20 06:41 [place] # (Auto) 0.56 K/uL (0.11-0.59) 04/17/20 06:41 Eos # (Auto) 0.00 K/uL (0-0.5) 04/17/20 06:41 Baso # (Auto) 0.01 K/uL (0-0.2) 04/17/20 06:41 Immature Gran # (Auto) 0.03 K/uL (0.00-0.02) H 04/17/20 06:41 Absolute Nucleated RBC 0.06 K/uL (0-0) H 04/17/20 06:41 Nucleated RBC % (auto) 0.7 % 04/17/20 06:41 Platelet Estimate Decreased (Normal) L 04/17/20 06:41 Anisocytosis Present 04/17/20 06:41 Ovalocytes 1+ 04/16/20 19:16 Echinocytes 1+ 04/17/20 06:41 Peripher Smr Path Cons 04/16/20 19:16 PT 40.7 Seconds (9.0-12.0) H 04/17/20 06:41 INR 4.2 (0.9-1.1) H 04/17/20 06:41 APTT 42.4 Seconds (21.0-31.0) H 04/16/20 19:16 PTT Ratio 1.5 04/16/20 19:16 Fibrinogen 215 mg/dl (184-400) 04/16/20 19:16 Sample Site R Radial 04/17/20 04:43 POC pH 7.33 (7.35-7.45) L 04/17/20 04:43 POC pCO2 37 mmHg (35-46) 04/17/20 04:43 POC pO2 115 mmHg (80-95) H 04/17/20 04:43 POC HCO3 19 jigar/L (19-24) 04/17/20 04:43 POC Total CO2 20 mmol/L (24-31) L 04/17/20 04:43 POC Base Excess -7.0 jigar/L (-9-1.8) 04/17/20 04:43 ABG pH 7.39 (7.35-7.45) 04/15/20 19:11 ABG pH (Temp Correct) 7.402 (7.35-7.45) 04/16/20 18:37 ABG pCO2 35 mmHg (35-46) 04/15/20 19:11 ABG pCO2 (Temp Corrct 31 mmHg (35-46) L 04/16/20 18:37 ABG pO2 88 mmHg (80-95) 04/15/20 19:11 POC ABG pO2 at Pt Temp 99 04/16/20 18:37 ABG HCO3 21 mmol/L (19-24) 04/15/20 19:11 POC ABG O2 Sat 98.0 % (90-95) H 04/17/20 04:43 ABG O2 Saturation 97.0 % (90-95) H 04/15/20 19:11 ABG Base Excess -3.6 mEq/L (-9-1.8) 04/15/20 19:11 Taqueria Test Pass 04/17/20 04:43 VBG pH 7.38 (7.36-7.41) 04/16/20 06:21 VBG pCO2 39 mmHg (38-50) 04/16/20 06:21 VBG pO2 36 mmHg 04/16/20 06:21 VBG HCO3 23 mmol/L 04/16/20 06:21 VBG O2 Saturation < 60.0 % 04/16/20 06:21 VBG Base Excess -2.2 mEq/L 04/16/20 06:21 Barometric Pressure 721.7 mm/Hg 04/16/20 06:21 Oxygen Given 5L 04/15/20 19:11 O2 Delivery Device BIPAP 04/17/20 04:43 POC O2 Rate 12 04/17/20 04:43 POC FiO2 30 % 04/17/20 04:43 IPAP 10 04/17/20 04:43 POC Sodium 140 mmol/L (135-144) 04/16/20 18:37 Sodium 140 mmol/L (136-145) 04/17/20 06:41 POC Potassium 4.6 mmol/L (3.3-5.0) 04/16/20 18:37 Potassium 5.1 mmol/L (3.5-5.1) 04/17/20 06:41 Chloride 103 mmol/L (98-107) 04/17/20 06:41 Carbon Dioxide 25 mmol/L (21-32) 04/17/20 06:41 Anion Gap 12.0 (3-11) H 04/17/20 06:41 BUN 80 mg/dl (7-18) H 04/17/20 06:41 Creatinine 3.28 mg/dl (0.6-1.4) H 04/17/20 06:41 Est Cr Clr Drug Dosing 19.5 ml/min 04/17/20 06:41 Est GFR ( Amer) 18.6 04/17/20 06:41 Est GFR (Non-Af Amer) 16.0 04/17/20 06:41 BUN/Creatinine Ratio 24.4 (10-20) H 04/17/20 06:41 Glucose 90 mg/dl (70-99) 04/17/20 06:41 POC Glucose 85 mg/dl (70-99) 04/16/20 19:24 Lactate 6.2 mmol/L (0.4-2.0) H* 04/17/20 06:41 Calcium 9.2 mg/dl (8.5-10.1) 04/17/20 06:41 Phosphorus 5.6 mg/dl (2.5-4.9) H 04/17/20 06:41 Magnesium 2.5 mg/dl (1.8-2.4) H 04/17/20 06:41 Total Bilirubin 4.3 mg/dl (0.2-1) H 04/17/20 06:41 Direct Bilirubin 2.8 mg/dl (0-0.2) H 04/17/20 06:41 AST 339 U/L (15-37) H 04/17/20 06:41 ALT 191 U/L (12-78) H 04/17/20 06:41 Alkaline Phosphatase 121 U/L (45-117) H 04/17/20 06:41 Ammonia 15.9 umol/L (11-32) 04/17/20 06:41 Troponin I 0.156 ng/ml (0-0.045) H* 04/17/20 06:41 NT-Pro-B Natriuret Pep > 07443 pg/ml (0-1800) H 04/17/20 06:41 Total Protein 6.9 gm/dl (6.4-8.2) 04/17/20 06:41 Albumin 2.3 gm/dl (3.4-5.0) L 04/17/20 06:41 Globulin 4.8 gm/dl (2.5-4.0) H 04/16/20 19:16 Albumin/Globulin Ratio 0.5 (0.9-2) L 04/16/20 19:16 Lipase 500 U/L (73-393) H 04/17/20 06:41 Procalcitonin 0.18 ng/ml (0-0.5) 04/16/20 09:47 Urine Color Dark Yellow 04/13/20 21:57 Urine Appearance Clear (Clear) 04/13/20 21:57 Urine pH 5.0 (4.5-7.5) 04/13/20 21:57 Ur Specific [place] 1.015 (1.000-1.030) 04/13/20 21:57 Urine Protein Negative (Negative) 04/13/20 21:57 Urine Glucose (UA) Negative (Negative) 04/13/20 21:57 Urine Ketones Negative (Negative) 04/13/20 21:57 Urine Blood Negative (Negative) 04/13/20 21:57 Urine Nitrite Negative (Negative) 04/13/20 21:57 Urine Bilirubin Negative (Negative) 04/13/20 21:57 Urine Urobilinogen Negative (Negative) 04/13/20 21:57 Ur Leukocyte Esterase Trace (Negative) H 04/13/20 21:57 Urine WBC (Auto) 1-5 /hpf (0-5) 04/13/20 21:57 Urine RBC (Auto) 0-4 /hpf (0-4) 04/13/20 21:57 U Hyaline Cast (Auto) 1-5 /lpf (0-5) 04/13/20 21:57 U Epithel Cells (Auto) 10-20 /lpf (0-5) H 04/13/20 21:57 Urine Bacteria (Auto) Negative (Negative) 04/13/20 21:57 COVID-19 Eval Order Covid19 IDNow [facility] 04/13/20 18:02 Hep Bs Antigen Neg (Neg) 04/16/20 19:16 Hepatitis C Antibody Neg (Neg) 04/16/20 19:16 SARS-CoV-2, RNA, NAAT NEGATIVE (NEGATIVE) 04/13/20 18:02 SARS-CoV-2 Ag (Rapid) Negative (Negative) 04/13/20 Unknown Resident Activity Tracking Resident Involvement: Resident Care Provided Care Provided: Adult Hospital Medicine (1) Acute congestive heart failure Heart failure type: systolic Qualified Code(s): I50.21 - Acute systolic (congestive) heart failure (2) Pulmonary edema Chronicity: acute Qualified Code(s): J81.0 - Acute pulmonary edema
--- NOTE | 2020-04-17 09:10 | XRay Report ---
XR chest 1V portable CLINICAL HISTORY: Shortness of breath. Atypical chest pain. Follow-up study COMPARISON STUDY: 04/16/2020 FINDINGS: The heart remains enlarged. There are bilateral interstitial and alveolar airspace opacitie s, slightly progressive on the right. The findings could represent pulmonary edema, or a bilateral in terstitial inflammatory process.[ IMPRESSION: 1. Cardiomegaly and slight progression in the bilateral interstitial and alveolar airspace opacities ACT 112: Negative or not required by law. Electronically signed by: Warner Parker M.D. 04/17/2020 9:08 AM
--- NOTE | 2020-04-17 09:56 | Nephrology Consultation ---
Date of Consultation April 17, 2020 Assessment & Plan (1) Acute renal failure superimposed on stage 4 chronic kidney disease: baseline creatinine 1.7-2.0. he was just over baseline w/ creat 2.2 on presentation with progressive worsening of creatinine since admission to [facility] today at 3.3. he has had lactic acidosis of unclear cause since admission which has worsened; no acidemia however. source of lactic acidosis unclear; would not pursue further work up at this time given change this afternoon in goals of care. -now that he is on comfort measures, would not draw further labs or diurese him. -will sign off Present on Admission?: Yes (2) Multiorgan failure: w/ renal, liver, worsened heart failure > with poorer prognosis Present on Admission?: No (3) Palliative care encounter: pt placed on comfort measures late this afternoon; he has had decline in functional status prior to admission since falling at home this summer Present on Admission?: No History of Present Illness Reason for Consultation: GI, Anion gap acidosis Requesting Physician: Dr Ca Attending Physician: Chicho Erickson MD History of Present Illness 89 y/o M admitted 04/13 for acute on chronic combined systolic and diastolic HF whom I'm asked to see for GI and AG acidosis. PMH includes CKD 4, chronic systolic HF EF 40%, s/p 06/2019 mitral valve clip repair, tachy-zaid syndrome, at most moderate CAD on 06/2019 cath, permanent A fib on coumadin, COPD, LILLI on CPAP, hx of AAA repair, reformed tobacco use, diet controlled DM, chronic lower urinary tract sx (frequency/urgency). He had had some ativan d/t behavioral issues with intermittent confusion earlier in the admission and became lethargic with increasing lactic acid. He decompensated late yesterday afternoon and was moved to ICU for closer monitoring. He was as of this am Full code. The plan had been for diuresis on admission and he has been getting lasix. However he is on the admission 3.7L positive based on I/O, including per report at least 2L IVF yesterday d/t concern for sepsis. He follows in CKD clinic w/ Dr Villarreal, last seen 04/03 and noted at that visit to have marked volume overload w/ lasix increased to 80/40 at that time. His baseline creatinine is 1.7-2.0, most recently in February. His creatinine was 2.0 at 04/13 admission at baseline and has since steadily trended upward to 3.3 today. Also w/ transaminitis w/ liver enzymes in 100s. Allergies Allergy/AdvReac Type Severity Reaction Status Date / Time aspirin Allergy Intermediate HIVES Verified 04/13/20 18:09 levofloxacin [From Levaquin] AdvReac Severe Delirium Verified 04/13/20 18:09 oxycodone AdvReac Mild INTOLERATE Verified 04/13/20 18:09 TO PERCOCET OR OXYCONTIN Home Medications Medication Instructions Recorded Confirmed Type Spiriva with HandiHaler 1 cap INHALATION QAM 03/27/19 04/13/20 History albuterol sulfate [Ventolin HFA] 1 puff INHALATION Q6H PRN 03/27/19 04/13/20 History atorvastatin 10 mg PO QAM 03/27/19 04/13/20 History cetirizine 5 mg PO HS 03/27/19 04/13/20 History fluticasone propion-salmeterol 1 inh INHALATION BID 03/27/19 04/13/20 History [Advair Diskus] hydroxyzine HCl 10 mg PO QID PRN 03/27/19 04/13/20 History warfarin See Rx Instructions .ROUTE .COMPLEX 03/27/19 04/13/20 History isosorbide dinitrate 10 mg PO BID@0700,1200 #30 tab 03/31/19 04/13/20 Rx ferrous sulfate [iron] 325 mg PO DAILY 11/29/19 04/13/20 History furosemide [Lasix] See Rx Instructions .ROUTE .COMPLEX 04/13/20 04/13/20 History Patient History Medical History Abdominal aortic aneurysm s/p AAA repair in 2012 at [place]) GI (acute kidney injury) Atrial fibrillation, chronic Cerebrovascular disease "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" CKD (chronic kidney disease), 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 Coronary artery disease nonobstructive per cath [facility] Jun 2019 Diabetes mellitus type 2 with complications Diabetic neuropathy Do not resuscitate status POLST 2016 Dyslipidemia Metabolic encephalopathy Mitral valve regurgitation Nonsustained ventricular tachycardia Sleep apnea Tachy-zaid syndrome Thrombocytopenia Surgical History Status post abdominal aortic aneurysm repair " 2012 [facility]" Status post cardiac catheterization [facility] Jun 2019- nonobstructive disease [30% LAD, 50% 2nd diag, 30% circ, 30% RCA] Status post mitral valve repair Status post total knee replacement Family History Mother Thyroid disorder Father Colorectal cancer Social History Smoking Status: Former smoker Years Smoked: 51; Hx Alcohol Use: No Hx Substance Use: No Preferred Language: Togolese Communication Ability: Effective Nuclear Medicine Specialist Required: No Beliefs That Will Affect Care: None marital status: / marital status details: in October 2017 Current Living Situation: Alone Other Information That Helps Us Care for You: No Feels Safe at Home: Yes Safety Concerns: Feels Safe At This Time Assistive Devices: Oxygen - Continuous Review of Systems Review of Systems: Unobtainable due to reduced consciousness Physical Exam Constitutional: well developed and well nourished; no acute distress lying on his R side, arouses briefly w/ noxious stimuli Eyes: no eyelid abnormality ENMT: Ears: no external ear abnormality Nose: no external nose abnormality Mouth: + dry oral mucous membranes Neck: no nuchal rigidity Respiratory: normal respiratory effort, + labored breathing (slight) and + prolonged expiratory phase; no respiratory distress Auscultation: + diminished lung sounds (on 6L VM) and + rhonchi (marked/ diffuse) Cardiovascular: Rate/Rhythm: regular rate and regular rhythm (w/ occasoinal skipped beats) Gastrointestinal (Abdomen): Inspection/Auscultation: normal bowel sounds Percussion/Palpation: abdomen soft; abdomen nontender Musculoskeletal: Extremities: + abnormal strength Skin: no rashes, warm and dry Neurologic: + obtunded salv[place], fluent speech, no tremor Genitourinary: robins w/ ample urine orange tinged Results & Data ([facility]) Vital Signs (Past 12 Hours) Vital Signs Temp Pulse Resp BP Pulse Ox 04/17/20 09:00 90 33 H 04/17/20 08:00 36.7 C 88 27 H 107/49 L 04/17/20 07:00 93 H 24 119/68 94 04/17/20 06:00 100 H 29 H 94 04/17/20 05:51 81 17 116/67 97 04/17/20 05:00 99 H 23 90 04/17/20 04:51 93 H 20 139/71 97 04/17/20 04:00 110 H 25 H 95 04/17/20 03:51 109 H 25 H 139/86 94 04/17/20 03:28 97 H 26 H 96 04/17/20 03:00 36.4 C L 110 H 22 96 04/17/20 02:51 100 H 29 H 127/75 95 04/17/20 02:40 100 H 21 124/94 96 04/17/20 02:00 119 H 22 96 04/17/20 01:52 123 H 24 127/104 H 95 04/17/20 01:00 96 H 26 H 04/17/20 00:51 97 H 21 112/90 04/17/20 00:00 102 H 22 04/16/20 23:51 99 H 29 H 119/68 95 04/16/20 23:30 101 H 29 H 96 04/16/20 23:00 36.8 C 97 H 25 H 95 04/16/20 22:52 99 H 20 119/73 96 04/16/20 22:30 98 H 22 95 04/16/20 22:00 87 20 95 Laboratory Results 04/17/20 06:41 04/17/20 06:41 lactate 6.2 today; range 3.3-3.9 at admission and uptrending since AG 12-16 w/ albumin 2.3 since admission ABGs w/ pH 7.33-7.40, Co2 20; pC02 31 and 37 BNP >19008 AST/ALT 300s/190s last ua 04/13 all cxs negative Diagnostic Findings cxr 1. Cardiomegaly and slight progression in the bilateral interstitial and alveolar airspace opacities abd u/s 1. Hepatic steatosis. 2. Trace perihepatic ascites. 3. Sludge-filled gallbladder with mild nonspecific gallbladder wall thickening. No definite cholelithiasis. 4. Echogenic right kidney suggests chronic medical renal disease. (1) Acute renal failure superimposed on stage 4 chronic kidney disease Acute renal failure type: unspecified Qualified Code(s): N17.9 - Acute kidney failure, unspecified; N18.4 - Chronic kidney disease, stage 4 (severe)
--- NOTE | 2020-04-17 10:32 | Cardiology Progress Note ---
Date of Service April 17, 2020 Assessment & Plan (1) Combined systolic and diastolic congestive heart failure: Patient with complex history as outlined above who initially presented with signs and symptoms of decompensated systolic and diastolic heart failure secondary to reduction in diuretic dosing. Course notable for decline in mental status and marginal respiratory status now with progressive decline in renal function and hepatic function. Patient did not respond to IV fluid resu scitation and now with worsening pulmonary status/congestive heart failure as well as renal function Appreciate intensive care and nephrology input. Agree with IV diuretics. If no response trial of low-dose dobutamine may be helpful in augmenting LV function. Underlying etiology of LV dysfunction nonischemic/secondary to prior valvular heart disease Overall prognosis limited. (2) Atrial fibrillation, chronic: No significant arrhythmias on telemetry with persistent atrial fibrillation and no profound bradycardia (3) Tachy-zaid syndrome: (4) Nonsustained ventricular tachycardia: (5) Diabetes mellitus type 2 with complications: (6) Cardiomyopathy: (7) Confusion: Admission and Anticipated Discharge Date Admission Date: April 13, 2020 Subjective Patient seen and examined, chart, medications, telemetry reviewed. Events of the past evening noted. Patient transferred to the intensive care unit due to progressive acidosis, multisystem decline, worsening heart failure after fluid resuscitation for increasing lactic acid Patient arousable but still somnolent. No bradycardia arrhythmias or sustained VT Review of Systems Review of Systems: Unobtainable due to cognitive status Physical Exam Constitutional: + acute distress, + ill appearing and + lethargic Eyes: PERRL, conjunctivae normal, anicteric sclerae ENMT: external ear and nose normal, oropharynx normal Neck: trachea midline, no thyromegaly Respiratory: Auscultation: + rales (Few basilar, scattered fine crackles) Coarse upper airway sounds throughout Cardiovascular: Heart Sounds: normal S1, normal S2 and + murmur (Grade 1/6); no gallop Palpation: normal PMI Vessels: normal carotid upstroke and radial pulses present; no JVD and no carotid bruit Extremities: + edema (2+) Gastrointestinal (Abdomen): normal bowel sounds, soft, nontender, no hepatosplenomegaly Musculoskeletal: no cyanosis or clubbing, extremities motor strength 5/5 Skin: no rashes, warm and dry Neurologic: + confused; no focal motor deficits Results & Data ([facility]) Vital Signs (Past 12 Hours) Vital Signs Temp Pulse Resp BP Pulse Ox 04/17/20 09:00 90 33 H 04/17/20 08:00 36.7 C 88 27 H 107/49 L 04/17/20 07:00 93 H 24 119/68 94 04/17/20 06:00 100 H 29 H 94 04/17/20 05:51 81 17 116/67 97 04/17/20 05:00 99 H 23 90 04/17/20 04:51 93 H 20 139/71 97 04/17/20 04:00 110 H 25 H 95 04/17/20 03:51 109 H 25 H 139/86 94 04/17/20 03:28 97 H 26 H 96 04/17/20 03:00 36.4 C L 110 H 22 96 04/17/20 02:51 100 H 29 H 127/75 95 04/17/20 02:40 100 H 21 124/94 96 04/17/20 02:00 119 H 22 96 04/17/20 01:52 123 H 24 127/104 H 95 04/17/20 01:00 96 H 26 H 04/17/20 00:51 97 H 21 112/90 04/17/20 00:00 102 H 22 04/16/20 23:51 99 H 29 H 119/68 95 04/16/20 23:30 101 H 29 H 96 04/16/20 23:00 36.8 C 97 H 25 H 95 04/16/20 22:52 99 H 20 119/73 96 Laboratory Results Laboratory Results - last 24 hr 04/16/20 04/16/20 04/16/20 09:47 14:58 14:58 WBC RBC Hgb POC Hgb Hct POC Hct MCV MCH MCHC RDW Std Deviation RDW Coeff of Dwayne Plt Count Immature Gran % (Auto) Neut % (Auto) Lymph % (Auto) [place] % (Auto) Eos % (Auto) Baso % (Auto) Neut # (Auto) Lymph # (Auto) [place] # (Auto) Eos # (Auto) Baso # (Auto) Immature Gran # (Auto) Absolute Nucleated RBC Nucleated RBC % (auto) Platelet Estimate Anisocytosis Ovalocytes Echinocytes Peripher Smr Path Cons PT INR APTT PTT Ratio Fibrinogen Sample Site POC pH POC pCO2 POC pO2 POC HCO3 POC Total CO2 POC Base Excess ABG pH (Temp Correct) ABG pCO2 (Temp Corrct POC ABG pO2 at Pt Temp POC ABG O2 Sat [place] Test O2 Delivery Device POC O2 Rate POC FiO2 IPAP POC Sodium Sodium 139 POC Potassium Potassium 4.7 Chloride 104 Carbon Dioxide 19 L Anion Gap 16.0 H BUN 73 H Creatinine 3.02 H Est Cr Clr Drug Dosing 20.8 Est GFR ( Amer) 20.5 Est GFR (Non-Af Amer) 17.7 BUN/Creatinine Ratio 24.2 H Glucose 69 L POC Glucose Lactate 5.6 H* Calcium 9.7 Phosphorus Magnesium Total Bilirubin 3.8 H Direct Bilirubin AST 243 H ALT 133 H Alkaline Phosphatase 124 H Ammonia Troponin I NT-Pro-B Natriuret Pep Total Protein 7.5 Albumin 2.5 L Globulin 5.0 H Albumin/Globulin Ratio 0.5 L Lipase Procalcitonin 0.18 Hepatitis A IgM Ab Hep Bs Antigen Hep B Core IgM Ab Hepatitis C Antibody 04/16/20 04/16/20 04/16/20 15:42 18:37 19:16 WBC RBC Hgb POC Hgb 16.0 Hct POC Hct 47 MCV MCH MCHC RDW Std Deviation RDW Coeff of Dwayne Plt Count Immature Gran % (Auto) Neut % (Auto) Lymph % (Auto) [place] % (Auto) Eos % (Auto) Baso % (Auto) Neut # (Auto) Lymph # (Auto) [place] # (Auto) Eos # (Auto) Baso # (Auto) Immature Gran # (Auto) Absolute Nucleated RBC Nucleated RBC % (auto) Platelet Estimate Anisocytosis Ovalocytes Echinocytes Peripher Smr Path Cons PT INR APTT PTT Ratio Fibrinogen Sample Site L Radial POC pH 7.40 POC pCO2 31 L POC pO2 99 H POC HCO3 19 POC Total CO2 20 L POC Base Excess -5.0 ABG pH (Temp Correct) 7.402 ABG pCO2 (Temp Corrct 31 L POC ABG pO2 at Pt Temp 99 POC ABG O2 Sat 98.0 H [place] Test Pass O2 Delivery Device BIPAP POC O2 Rate POC FiO2 IPAP POC Sodium 140 Sodium POC Potassium 4.6 Potassium Chloride Carbon Dioxide Anion Gap BUN Creatinine Est Cr Clr Drug Dosing Est GFR ( Amer) Est GFR (Non-Af Amer) BUN/Creatinine Ratio Glucose POC Glucose 62 L* Lactate Calcium Phosphorus Magnesium Total Bilirubin Direct Bilirubin AST ALT Alkaline Phosphatase Ammonia Troponin I NT-Pro-B Natriuret Pep Total Protein Albumin Globulin Albumin/Globulin Ratio Lipase Procalcitonin Hepatitis A IgM Ab Hep Bs Antigen Neg Hep B Core IgM Ab Hepatitis C Antibody Neg 04/16/20 04/16/20 04/16/20 19:16 19:16 19:16 WBC 11.54 H RBC 4.78 Hgb 14.6 POC Hgb Hct 45.6 POC Hct MCV 95.4 MCH 30.5 MCHC 32.0 RDW Std Deviation 63.1 H RDW Coeff of Dwayne 19.4 H Plt Count 94 L Immature Gran % (Auto) 0.2 Neut % (Auto) 84.8 Lymph % (Auto) 7.6 [place] % (Auto) 7.4 Eos % (Auto) 0.0 Baso % (Auto) 0.0 Neut # (Auto) 9.79 H Lymph # (Auto) 0.88 L [place] # (Auto) 0.85 H Eos # (Auto) 0.00 Baso # (Auto) 0.00 Immature Gran # (Auto) 0.02 Absolute Nucleated RBC 0.08 H Nucleated RBC % (auto) 0.7 Platelet Estimate Anisocytosis Ovalocytes 1+ Echinocytes 2+ Peripher Smr Path Cons PT INR APTT PTT Ratio Fibrinogen Sample Site POC pH POC pCO2 POC pO2 POC HCO3 POC Total CO2 POC Base Excess ABG pH (Temp Correct) ABG pCO2 (Temp Corrct POC ABG pO2 at Pt Temp POC ABG O2 Sat [place] Test O2 Delivery Device POC O2 Rate POC FiO2 IPAP POC Sodium Sodium 139 POC Potassium Potassium 4.9 Chloride 103 Carbon Dioxide 23 Anion Gap 13.0 H BUN 75 H Creatinine 3.16 H Est Cr Clr Drug Dosing 19.9 Est GFR ( Amer) 19.4 Est GFR (Non-Af Amer) 16.8 BUN/Creatinine Ratio 23.6 H Glucose 76 POC Glucose Lactate Calcium 9.5 Phosphorus Magnesium Total Bilirubin 3.9 H Direct Bilirubin AST 293 H ALT 157 H Alkaline Phosphatase 127 H Ammonia Troponin I 0.125 H* NT-Pro-B Natriuret Pep 77743 H Total Protein 7.3 Albumin 2.5 L Globulin 4.8 H Albumin/Globulin Ratio 0.5 L Lipase 801 H Procalcitonin Hepatitis A IgM Ab Pending Hep Bs Antigen Hep B Core IgM Ab Pending Hepatitis C Antibody 04/16/20 04/16/20 04/16/20 19:16 19:16 19:16 WBC RBC Hgb POC Hgb Hct POC Hct MCV MCH MCHC RDW Std Deviation RDW Coeff of Dwayne Plt Count Immature Gran % (Auto) Neut % (Auto) Lymph % (Auto) [place] % (Auto) Eos % (Auto) Baso % (Auto) Neut # (Auto) Lymph # (Auto) [place] # (Auto) Eos # (Auto) Baso # (Auto) Immature Gran # (Auto) Absolute Nucleated RBC Nucleated RBC % (auto) Platelet Estimate Anisocytosis Ovalocytes Echinocytes Peripher Smr Path Cons PT INR APTT 42.4 H PTT Ratio 1.5 Fibrinogen 215 Sample Site POC pH POC pCO2 POC pO2 POC HCO3 POC Total CO2 POC Base Excess ABG pH (Temp Correct) ABG pCO2 (Temp Corrct POC ABG pO2 at Pt Temp POC ABG O2 Sat [place] Test O2 Delivery Device POC O2 Rate POC FiO2 IPAP POC Sodium Sodium POC Potassium Potassium Chloride Carbon Dioxide Anion Gap BUN Creatinine Est Cr Clr Drug Dosing Est GFR ( Amer) Est GFR (Non-Af Amer) BUN/Creatinine Ratio Glucose POC Glucose Lactate 6.0 H* Calcium Phosphorus Magnesium Total Bilirubin Direct Bilirubin AST ALT Alkaline Phosphatase Ammonia 38.0 H Troponin I NT-Pro-B Natriuret Pep Total Protein Albumin Globulin Albumin/Globulin Ratio Lipase Procalcitonin Hepatitis A IgM Ab Hep Bs Antigen Hep B Core IgM Ab Hepatitis C Antibody 04/16/20 04/16/20 04/17/20 19:24 21:34 00:19 WBC RBC Hgb POC Hgb Hct POC Hct MCV MCH MCHC RDW Std Deviation RDW Coeff of Dwayne Plt Count Immature Gran % (Auto) Neut % (Auto) Lymph % (Auto) [place] % (Auto) Eos % (Auto) Baso % (Auto) Neut # (Auto) Lymph # (Auto) [place] # (Auto) Eos # (Auto) Baso # (Auto) Immature Gran # (Auto) Absolute Nucleated RBC Nucleated RBC % (auto) Platelet Estimate Anisocytosis Ovalocytes Echinocytes Peripher Smr Path Cons PT INR APTT PTT Ratio Fibrinogen Sample Site POC pH POC pCO2 POC pO2 POC HCO3 POC Total CO2 POC Base Excess ABG pH (Temp Correct) ABG pCO2 (Temp Corrct POC ABG pO2 at Pt Temp POC ABG O2 Sat [place] Test O2 Delivery Device POC O2 Rate POC FiO2 IPAP POC Sodium Sodium POC Potassium Potassium Chloride Carbon Dioxide Anion Gap BUN Creatinine Est Cr Clr Drug Dosing Est GFR ( Amer) Est GFR (Non-Af Amer) BUN/Creatinine Ratio Glucose POC Glucose 85 Lactate 5.1 H* Calcium Phosphorus Magnesium Total Bilirubin Direct Bilirubin AST ALT Alkaline Phosphatase Ammonia Troponin I 0.126 H* NT-Pro-B Natriuret Pep Total Protein Albumin Globulin Albumin/Globulin Ratio Lipase Procalcitonin Hepatitis A IgM Ab Hep Bs Antigen Hep B Core IgM Ab Hepatitis C Antibody 04/17/20 04/17/20 04/17/20 04:43 06:41 06:41 WBC RBC Hgb POC Hgb Hct POC Hct MCV MCH MCHC RDW Std Deviation RDW Coeff of Dwayne Plt Count Immature Gran % (Auto) Neut % (Auto) Lymph % (Auto) [place] % (Auto) Eos % (Auto) Baso % (Auto) Neut # (Auto) Lymph # (Auto) [place] # (Auto) Eos # (Auto) Baso # (Auto) Immature Gran # (Auto) Absolute Nucleated RBC Nucleated RBC % (auto) Platelet Estimate Anisocytosis Ovalocytes Echinocytes Peripher Smr Path Cons PT 40.7 H INR 4.2 H APTT PTT Ratio Fibrinogen Sample Site R Radial POC pH 7.33 L POC pCO2 37 POC pO2 115 H POC HCO3 19 POC Total CO2 20 L POC Base Excess -7.0 ABG pH (Temp Correct) ABG pCO2 (Temp Corrct POC ABG pO2 at Pt Temp POC ABG O2 Sat 98.0 H [place] Test Pass O2 Delivery Device BIPAP POC O2 Rate 12 POC FiO2 30 IPAP 10 POC Sodium Sodium POC Potassium Potassium Chloride Carbon Dioxide Anion Gap BUN Creatinine Est Cr Clr Drug Dosing Est GFR ( Amer) Est GFR (Non-Af Amer) BUN/Creatinine Ratio Glucose POC Glucose Lactate Calcium Phosphorus Magnesium Total Bilirubin Direct Bilirubin AST ALT Alkaline Phosphatase Ammonia Troponin I 0.156 H* NT-Pro-B Natriuret Pep Total Protein Albumin Globulin Albumin/Globulin Ratio Lipase Procalcitonin Hepatitis A IgM Ab Hep Bs Antigen Hep B Core IgM Ab Hepatitis C Antibody 04/17/20 04/17/20 04/17/20 06:41 06:41 06:41 WBC 9.84 RBC 4.64 L Hgb 14.1 POC Hgb Hct 44.3 POC Hct MCV 95.5 MCH 30.4 MCHC 31.8 L RDW Std Deviation 63.4 H RDW Coeff of Dwayne 19.3 H Plt Count 81 L Immature Gran % (Auto) 0.3 Neut % (Auto) 84.1 Lymph % (Auto) 9.8 [place] % (Auto) 5.7 Eos % (Auto) 0.0 Baso % (Auto) 0.1 Neut # (Auto) 8.28 H Lymph # (Auto) 0.96 L [place] # (Auto) 0.56 Eos # (Auto) 0.00 Baso # (Auto) 0.01 Immature Gran # (Auto) 0.03 H Absolute Nucleated RBC 0.06 H Nucleated RBC % (auto) 0.7 Platelet Estimate Decreased L Anisocytosis Present Ovalocytes Echinocytes 1+ Peripher Smr Path Cons PT INR APTT PTT Ratio Fibrinogen Sample Site POC pH POC pCO2 POC pO2 POC HCO3 POC Total CO2 POC Base Excess ABG pH (Temp Correct) ABG pCO2 (Temp Corrct POC ABG pO2 at Pt Temp POC ABG O2 Sat [place] Test O2 Delivery Device POC O2 Rate POC FiO2 IPAP POC Sodium Sodium 140 POC Potassium Potassium 5.1 Chloride 103 Carbon Dioxide 25 Anion Gap 12.0 H BUN 80 H Creatinine 3.28 H Est Cr Clr Drug Dosing 19.5 Est GFR ( Amer) 18.6 Est GFR (Non-Af Amer) 16.0 BUN/Creatinine Ratio 24.4 H Glucose 90 POC Glucose Lactate 6.2 H* Calcium 9.2 Phosphorus 5.6 H Magnesium 2.5 H Total Bilirubin 4.3 H Direct Bilirubin 2.8 H AST 339 H ALT 191 H Alkaline Phosphatase 121 H Ammonia Troponin I NT-Pro-B Natriuret Pep > 59754 H Total Protein 6.9 Albumin 2.3 L Globulin Albumin/Globulin Ratio Lipase 500 H Procalcitonin Hepatitis A IgM Ab Hep Bs Antigen Hep B Core IgM Ab Hepatitis C Antibody 04/17/20 06:41 WBC RBC Hgb POC Hgb Hct POC Hct MCV MCH MCHC RDW Std Deviation RDW Coeff of Dwayne Plt Count Immature Gran % (Auto) Neut % (Auto) Lymph % (Auto) [place] % (Auto) Eos % (Auto) Baso % (Auto) Neut # (Auto) Lymph # (Auto) [place] # (Auto) Eos # (Auto) Baso # (Auto) Immature Gran # (Auto) Absolute Nucleated RBC Nucleated RBC % (auto) Platelet Estimate Anisocytosis Ovalocytes Echinocytes Peripher Smr Path Cons PT INR APTT PTT Ratio Fibrinogen Sample Site POC pH POC pCO2 POC pO2 POC HCO3 POC Total CO2 POC Base Excess ABG pH (Temp Correct) ABG pCO2 (Temp Corrct POC ABG pO2 at Pt Temp POC ABG O2 Sat [place] Test O2 Delivery Device POC O2 Rate POC FiO2 IPAP POC Sodium Sodium POC Potassium Potassium Chloride Carbon Dioxide Anion Gap BUN Creatinine Est Cr Clr Drug Dosing Est GFR ( Amer) Est GFR (Non-Af Amer) BUN/Creatinine Ratio Glucose POC Glucose Lactate Calcium Phosphorus Magnesium Total Bilirubin Direct Bilirubin AST ALT Alkaline Phosphatase Ammonia 15.9 Troponin I NT-Pro-B Natriuret Pep Total Protein Albumin Globulin Albumin/Globulin Ratio Lipase Procalcitonin Hepatitis A IgM Ab Hep Bs Antigen Hep B Core IgM Ab Hepatitis C Antibody Diagnostic Findings Echocardiogram 04/17/2020 by personal review. Moderate left hypertrophy with moderate diffuse LV dysfunction with mild dyssynergy septum EF 30 to 35% re presenting mild decline from usual ejection fraction approximately 40%. There is mild 1-2+ aortic insufficiency. Evidence of prior mitral valve clip with intrinsic mild mitral stenosis is present with mild to moderate mitral insufficiency.
[2020-04-17] MEDS: PANTOprazole 40 MG in SYRINGE 0 ML IV SCH (11:17)
--- NOTE | 2020-04-17 12:36 | Billing Data ---
Date of Service April 17, 2020 Coding Level of Care Code Critical Care 1st 30-74 mins Time Spent (min) 41
[2020-04-17] MEDS ORDERED: fentaNYL citrate 100 MCG/2 ML VIAL IV PRN (14:13)
--- NOTE | 2020-04-17 16:21 | Palliative Care Consultation ---
Date of Consultation April 17, 2020 Assessment & Plan (1) Palliative care encounter: He has been restless at times per staff which may be delirium. He is also using accessory muscles and at risk for dyspnea. Will order fentanyl IV for prn use for his comfort. Discussed with RN and Dr. Marcus. I spoke with is daughter, Dyan, on the phone. They had hospice care at home for her mother when she . She wishes that they had involved hospice sooner for her and want him to be in his home with hospice. Fortunately, she has a cousin who is an RN who will be coming to stay and help with his care in addition to hospice. Discussed plan for medications that he may need at home. Would consider oxycodone 20mg/ml with 5mg dosing every four hours as needed for pain or dyspnea. Given his renal failure, I would avoid morphine due to potential toxicity with metabolites. He may also benefit from a few tablets of lorazepam 0.5 mg for anxiety and restlessness at home until hospice is able to establish care. I discussed this with Dyan. She feels comfortable with caring for him at home. Thank you for allowing us to participate in his care. (2) Multiorgan failure: History of Present Illness Reason for Consultation: comfort care Requesting Physician: Dr. Marcus Attending Physician: Chicho Erickson MD History of Present Illness 89 yo man with mixed systolic and diastolic congestive heart failure and coronary artery disease admited with dyspnea and CHF exacerbation. He has had cardiac cath in June of this year and EF of 40-45%. Echo done on this admission shows decrease in EF to 30-35%. He has unfortunately had multiorgan failure with hepatic and renal failure in addition to his heart failure. He has comorbid afib and NSVT, sleep apnea and diabetes. His family has requested comfort directed care and are hoping to take him home with hospice care. Allergies Allergy/AdvReac Type Severity Reaction Status Date / Time aspirin Allergy Intermediate HIVES Verified 04/13/20 18:09 levofloxacin [From Levaquin] AdvReac Severe Delirium Verified 04/13/20 18:09 oxycodone AdvReac Mild INTOLERATE Verified 04/13/20 18:09 TO PERCOCET OR OXYCONTIN Home Medications Medication Instructions Recorded Confirmed Type Spiriva with HandiHaler 1 cap INHALATION QAM 03/27/19 04/13/20 History albuterol sulfate [Ventolin HFA] 1 puff INHALATION Q6H PRN 03/27/19 04/13/20 History atorvastatin 10 mg PO QAM 03/27/19 04/13/20 History cetirizine 5 mg PO HS 03/27/19 04/13/20 History fluticasone propion-salmeterol 1 inh INHALATION BID 03/27/19 04/13/20 History [Advair Diskus] hydroxyzine HCl 10 mg PO QID PRN 03/27/19 04/13/20 History warfarin See Rx Instructions .ROUTE .COMPLEX 03/27/19 04/13/20 History isosorbide dinitrate 10 mg PO BID@0700,1200 #30 tab 03/31/19 04/13/20 Rx ferrous sulfate [iron] 325 mg PO DAILY 11/29/19 04/13/20 History furosemide [Lasix] See Rx Instructions .ROUTE .COMPLEX 04/13/20 04/13/20 History Patient History Medical History (Updated 04/17/20 @ 16:13 by Daniela Ferrell MD) Abdominal aortic aneurysm s/p AAA repair in 2012 at [place]) GI (acute kidney injury) Atrial fibrillation, chronic Cerebrovascular disease "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" CKD (chronic kidney disease), 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 Coronary artery disease nonobstructive per cath [facility] Jun 2019 Diabetes mellitus type 2 with complications Diabetic neuropathy Do not resuscitate status POLST 2015 Dyslipidemia Metabolic encephalopathy Mitral valve regurgitation Nonsustained ventricular tachycardia Sleep apnea Tachy-zaid syndrome Thrombocytopenia Surgical History Status post abdominal aortic aneurysm repair " 2012 [facility]" Status post cardiac catheterization [facility] Jun 2019- nonobstructive disease [30% LAD, 50% 2nd diag, 30% circ, 30% RCA] Status post mitral valve repair Status post total knee replacement Family History Mother Thyroid disorder Father Colorectal cancer Social History Smoking Status: Former smoker Years Smoked: 51; Hx Alcohol Use: No Hx Substance Use: No Preferred Language: Slovak Communication Ability: Effective Lever Operator Required: No Beliefs That Will Affect Care: None marital status: / marital status details: in October 2017 Current Living Situation: Alone Other Information That Helps Us Care for You: No Feels Safe at Home: Yes Safety Concerns: Feels Safe At This Time Assistive Devices: Oxygen - Continuous Review of Systems Review of Systems: Unobtainable due to cognitive status [place] Symptom Assessment Scale pain 0/3 by painAD dyspnea 1/3 by RDOS with accessory muscle use drowsiness 2/3 Palliative Performance Score 20% Physical Exam Constitutional: + lethargic not restless Respiratory: + uses accessory muscles Cardiovascular: Rate/Rhythm: + irregularly irregular Extremities: no edema Gastrointestinal (Abdomen): Percussion/Palpation: abdomen soft; abdomen nontender Skin: no rashes, warm and dry Results & Data ([facility]) Vital Signs (Past 12 Hours) Vital Signs Temp Pulse Resp BP Pulse Ox 04/17/20 13:00 93 H 27 H 101/59 L 04/17/20 12:00 78 19 101/61 92 04/17/20 11:00 83 16 113/57 L 95 04/17/20 10:00 83 27 H 105/43 L 04/17/20 09:00 90 33 H 04/17/20 08:00 98.1 F 88 27 H 107/49 L 04/17/20 07:00 93 H 24 119/68 94 04/17/20 06:00 100 H 29 H 94 04/17/20 05:51 81 17 116/67 97 04/17/20 05:00 99 H 23 90 04/17/20 04:51 93 H 20 139/71 97 PG Care Time/CCT Total # of Minutes Spent Total Time Spent with Patient: Total time spent is greater than 50% in coordination of care (as documented) at patient's floor/unit and/or counseling patient: Total time 60 minutes with more than 50% of time spent on family support and education, symptom management and coordination of care. Coding Level of Care Code 16171 Inpt Consult Level 3 Diagnoses Palliative care encounter Z51.5 Multiorgan failure Time Spent (min) 60
--- NOTE | 2020-04-17 20:29 | Hospitalist Progress Note ---
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 Ruggiero "No chest pain. Nonobstructive coronary artery disease as noted below. Doubt acute coronary syndrome. Elevated troponin probably secondary to decompensated CHF +/- CKD." (3) Coronary artery disease: -as per admission notes "Cardiac cath Jun [address] [facility] demonstrated nonobstructive coronary artery disease. No ASA- allergic. Not on beta chuckie due to bradycardia. Continue statin. 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 -unclear to suggest whether a correlation of falls at home to zaid or tachy arrhythmias. (6) Nonsustained ventricular tachycardia: -Noted on recent ZIO monitor when outpatient (7) Mitral valve regurgitation: -Status post mitral valve clip at [facility] Jun 2019. 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 -Tight control not indicated given advanced age and comorbidities. (12) Dyslipidemia: History of stroke in the past -on 1 to 1 observation. AVOID ATIVAN IN FUTURE THIS CAN CAUSE EXCESSIVE SEDATION (13) COVID-19 ruled out: -SARS-CoV-2 antigen and PCR both negative on admission (14) DVT prophylaxis: -follow INR levels (15) Do not resuscitate status: -Code Status is DNR/DNI as confirmed on admission by admitting physician and as confirmed by daughter Dyan on the phone (16) Discharge planning issues: Plan to transition to home with hospice tomorrow Admission and Anticipated Discharge Date Admission Date: April 13, 2020 Subjective ff up for CHF exacerbation, acute renal failure, etc. seen sleeping, patient very drowsy but not in distress, breathing with no effort or accessory muscle use no other acute issues per darklight inspector of Systems Review of Systems: Unobtainable due to cognitive status Physical Exam Physical Exam: General-lethargic, breathing with no effort or accessory muscle use Head- atraumatic Eyes- PERRL, EOMI, anicteric ENT- oropharynx clear Neck- supple, positive JVD, no adenopathy, no thyromegaly; carotids +2/2, no bruits appreciated Lungs-positive mild rales bilaterally at the bases, no wheezing Heart- normal rate, regular rhythm; no murmur, no gallop, no rub appreciated Abdomen- normal bowel sounds, nondistended, soft, nontender, no masses or hepatosplenomegaly Extremities-mild pretibial edema, no calf tenderness; peripheral pulses intact Neuro-lethargic, moves extremities equally occasionally Neuro exam difficult to perform due to patient's cognitive status Skin- warm & dry Results & Data Results & Data ([facility]) Vital Signs (Past 12 Hours) Vital Signs Pulse Resp BP Pulse Ox 04/17/20 17:55 80 17 103/34 L 91 04/17/20 17:00 79 24 110/68 98 04/17/20 16:00 83 27 H 113/68 97 04/17/20 15:00 99 H 21 127/59 L 95 04/17/20 14:00 78 133/79 95 04/17/20 13:00 93 H 27 H 101/59 L 04/17/20 12:00 78 19 101/61 92 04/17/20 11:00 83 16 113/57 L 95 04/17/20 10:00 83 27 H 105/43 L 04/17/20 09:00 90 33 H Laboratory Results Laboratory Results - last 24 hr 04/16/20 04/16/20 04/16/20 19:16 19:16 19:16 WBC RBC Hgb Hct MCV MCH MCHC RDW Std Deviation RDW Coeff of Dwayne Plt Count Immature Gran % (Auto) Neut % (Auto) Lymph % (Auto) [place] % (Auto) Eos % (Auto) Baso % (Auto) Neut # (Auto) Lymph # (Auto) [place] # (Auto) Eos # (Auto) Baso # (Auto) Immature Gran # (Auto) Absolute Nucleated RBC Nucleated RBC % (auto) Platelet Estimate Anisocytosis Echinocytes Peripher Smr Path Cons PT INR Sample Site POC pH POC pCO2 POC pO2 POC HCO3 POC Total CO2 POC Base Excess POC ABG O2 Sat Taqueria Test O2 Delivery Device POC O2 Rate POC FiO2 IPAP Sodium Potassium Chloride Carbon Dioxide Anion Gap BUN Creatinine Est Cr Clr Drug Dosing Est GFR ( Amer) Est GFR (Non-Af Amer) BUN/Creatinine Ratio Glucose POC Glucose Lactate Calcium Phosphorus Magnesium Total Bilirubin 3.9 H Direct Bilirubin AST ALT Alkaline Phosphatase 127 H Ammonia Troponin I 0.125 H* NT-Pro-B Natriuret Pep 42256 H Total Protein 7.3 Albumin Globulin 4.8 H Albumin/Globulin Ratio 0.5 L Lipase Hepatitis C Antibody Neg 04/16/20 04/17/20 04/17/20 21:34 00:19 04:43 WBC RBC Hgb Hct MCV MCH MCHC RDW Std Deviation RDW Coeff of Dwayne Plt Count Immature Gran % (Auto) Neut % (Auto) Lymph % (Auto) [place] % (Auto) Eos % (Auto) Baso % (Auto) Neut # (Auto) Lymph # (Auto) [place] # (Auto) Eos # (Auto) Baso # (Auto) Immature Gran # (Auto) Absolute Nucleated RBC Nucleated RBC % (auto) Platelet Estimate Anisocytosis Echinocytes Peripher Smr Path Cons PT INR Sample Site R Radial POC pH 7.33 L POC pCO2 37 POC pO2 115 H POC HCO3 19 POC Total CO2 20 L POC Base Excess -7.0 POC ABG O2 Sat 98.0 H Taqueria Test Pass O2 Delivery Device BIPAP POC O2 Rate 12 POC FiO2 30 IPAP 10 Sodium Potassium Chloride Carbon Dioxide Anion Gap BUN Creatinine Est Cr Clr Drug Dosing Est GFR ( Amer) Est GFR (Non-Af Amer) BUN/Creatinine Ratio Glucose POC Glucose Lactate 5.1 H* Calcium Phosphorus Magnesium Total Bilirubin Direct Bilirubin AST ALT Alkaline Phosphatase Ammonia Troponin I 0.126 H* NT-Pro-B Natriuret Pep Total Protein Albumin Globulin Albumin/Globulin Ratio Lipase Hepatitis C Antibody 04/17/20 04/17/20 04/17/20 06:41 06:41 06:41 WBC 9.84 RBC 4.64 L Hgb 14.1 Hct 44.3 MCV 95.5 MCH 30.4 MCHC 31.8 L RDW Std Deviation 63.4 H RDW Coeff of Dwayne 19.3 H Plt Count 81 L Immature Gran % (Auto) 0.3 Neut % (Auto) 84.1 Lymph % (Auto) 9.8 [place] % (Auto) 5.7 Eos % (Auto) 0.0 Baso % (Auto) 0.1 Neut # (Auto) 8.28 H Lymph # (Auto) 0.96 L [place] # (Auto) 0.56 Eos # (Auto) 0.00 Baso # (Auto) 0.01 Immature Gran # (Auto) 0.03 H Absolute Nucleated RBC 0.06 H Nucleated RBC % (auto) 0.7 Platelet Estimate Decreased L Anisocytosis Present Echinocytes 1+ Peripher Smr Path Cons PT 40.7 H INR 4.2 H Sample Site POC pH POC pCO2 POC pO2 POC HCO3 POC Total CO2 POC Base Excess POC ABG O2 Sat [place]queria Test O2 Delivery Device POC O2 Rate POC FiO2 IPAP Sodium Potassium Chloride Carbon Dioxide Anion Gap BUN Creatinine Est Cr Clr Drug Dosing Est GFR ( Amer) Est GFR (Non-Af Amer) BUN/Creatinine Ratio Glucose POC Glucose Lactate Calcium Phosphorus Magnesium Total Bilirubin Direct Bilirubin AST ALT Alkaline Phosphatase Ammonia Troponin I 0.156 H* NT-Pro-B Natriuret Pep Total Protein Albumin Globulin Albumin/Globulin Ratio Lipase Hepatitis C Antibody 04/17/20 04/17/20 04/17/20 06:41 06:41 06:41 WBC RBC Hgb Hct MCV MCH MCHC RDW Std Deviation RDW Coeff of Dwayne Plt Count Immature Gran % (Auto) Neut % (Auto) Lymph % (Auto) [place] % (Auto) Eos % (Auto) Baso % (Auto) Neut # (Auto) Lymph # (Auto) [place] # (Auto) Eos # (Auto) Baso # (Auto) Immature Gran # (Auto) Absolute Nucleated RBC Nucleated RBC % (auto) Platelet Estimate Anisocytosis Echinocytes Peripher Smr Path Cons PT INR Sample Site POC pH POC pCO2 POC pO2 POC HCO3 POC Total CO2 POC Base Excess POC ABG O2 Sat Taqueria Test O2 Delivery Device POC O2 Rate POC FiO2 IPAP Sodium 140 Potassium 5.1 Chloride 103 Carbon Dioxide 25 Anion Gap 12.0 H BUN 80 H Creatinine 3.28 H Est Cr Clr Drug Dosing 19.5 Est GFR ( Amer) 18.6 Est GFR (Non-Af Amer) 16.0 BUN/Creatinine Ratio 24.4 H Glucose 90 POC Glucose Lactate 6.2 H* Calcium 9.2 Phosphorus 5.6 H Magnesium 2.5 H Total Bilirubin 4.3 H Direct Bilirubin 2.8 H AST 339 H ALT 191 H Alkaline Phosphatase 121 H Ammonia 15.9 Troponin I NT-Pro-B Natriuret Pep > 92619 H Total Protein 6.9 Albumin 2.3 L Globulin Albumin/Globulin Ratio Lipase 500 H Hepatitis C Antibody 04/17/20 11:19 WBC RBC Hgb Hct MCV MCH MCHC RDW Std Deviation RDW Coeff of Dwayne Plt Count Immature Gran % (Auto) Neut % (Auto) Lymph % (Auto) [place] % (Auto) Eos % (Auto) Baso % (Auto) Neut # (Auto) Lymph # (Auto) [place] # (Auto) Eos # (Auto) Baso # (Auto) Immature Gran # (Auto) Absolute Nucleated RBC Nucleated RBC % (auto) Platelet Estimate Anisocytosis Echinocytes Peripher Smr Path Cons PT INR Sample Site POC pH POC pCO2 POC pO2 POC HCO3 POC Total CO2 POC Base Excess POC ABG O2 Sat Taqueria Test O2 Delivery Device POC O2 Rate POC FiO2 IPAP Sodium Potassium Chloride Carbon Dioxide Anion Gap BUN Creatinine Est Cr Clr Drug Dosing Est GFR ( Amer) Est GFR (Non-Af Amer) BUN/Creatinine Ratio Glucose POC Glucose 81 Lactate Calcium Phosphorus Magnesium Total Bilirubin Direct Bilirubin AST ALT Alkaline Phosphatase Ammonia Troponin I NT-Pro-B Natriuret Pep Total Protein Albumin Globulin Albumin/Globulin Ratio Lipase Hepatitis C Antibody
[2020-04-18 02:43] LABS: Hepatitis A Antibody IgM NON-REACTIVE (NON-REACTIVE); Hepatitis B Core Antibody IgM NON-REACTIVE (NON-REACTIVE)
[2020-04-18 03:30] VITALS: TEMP 96.4
[2020-04-18 06:58] VITALS: BP 113/65; O2SAT 97
[2020-04-18] MEDS: NYSTATIN POWDER 15GM BTL EXT SCH (09:37)
[2020-04-18] MEDS: FLUTICASONE/VILANTEROL 200/25MCG 14 PUFFS/INHALER INH SCH (10:10)
[2020-04-18] MEDS: UMECLIDINIUM BROMIDE 62.5MCG/BLISTER 7 PUFFS/INHALER INH SCH (10:10)
--- NOTE | 2020-04-18 10:31 | Palliative Care Progress Note ---
Date of Service April 18, 2020 Assessment & Plan (1) Palliative care encounter: I met with Colten in his room. He was lying on his left side with his BiPAP mask on in no apparent distress. He did open his eyes for me, but no other real meaningful communication. Per nursing, he has been less agitated. I did discontinue the IV Fentanyl as he is on a non-monitored floor and nursing policy does not allow administration. I ordered Roxicodone 20mg/mL: Admin 5mg PO Q4 PRN for pain/air hunger. In discussion with Case management, Letty Chaudhry RN, Patient will be discharged today at 1630 to his home with [facility]. Equipment has been delivered. Plan is for him to wear 6L oxymask when discharged. Suggested to nursing that we should place him on the oxymask an hour or so prior to discharge to ensure his stability for transport. Letty Chaudhry updated family as well. Palliative care is thankful to have had the opportunity to assist in the care of this individual. (2) Multiorgan failure: Admission and Anticipated Discharge Date Admission Date: April 13, 2020 Subjective Patient lying on his side in no apparent distress No tachycardia or mottling. Please see A/P for further details. Physical Exam Constitutional: + lethargic Respiratory: + uses accessory muscles Cardiovascular: Rate/Rhythm: + irregularly irregular Extremities: no edema Gastrointestinal (Abdomen): Percussion/Palpation: abdomen soft; abdomen nontender Skin: no rashes, warm and dry Results & Data ([facility]) Vital Signs (Past 12 Hours) Vital Signs Temp Pulse Pulse Resp BP BP Pulse Ox 04/18/20 07:00 83 04/18/20 06:54 35.8 C L 85 16 113/65 97 04/18/20 04:28 98 H 107/65 04/18/20 03:49 105/49 L 04/18/20 03:29 35.8 C L 77 16 89/47 L 98 04/18/20 02:24 89 16 97 04/17/20 22:47 97 H 22 94 PG Care Time/CCT Total # of Minutes Spent Total Time Spent with Patient: Total time spent is greater than 50% in coordination of care (as documented) at patient's floor/unit and/or counseling patient: 35 Coding Level of Care Code 76982 Subseq Hosp Care Lvl 3 Diagnoses Palliative care encounter Z51.5 Multiorgan failure Time Spent (min) 35 Time Spent Midlevel Total time spent 35 minutes with >50% of that time spent assessing the patient, discussing discharge plans, providing symptom management and collaborating with IDT
[2020-04-18] MEDS ORDERED: SCOPOLAMINE 1.5 MG TDSY TD SCH (10:45)
[2020-04-18] MEDS: PANTOprazole 40 MG in SYRINGE 0 ML IV SCH (11:02)
[2020-04-18] MEDS: oxyCODONE HCL SOLN 5 MG/5 ML UDC PO PRN ×2 (14:01→17:23)
--- NOTE | 2020-04-18 14:06 | Hospitalist Progress Note ---
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: Hypoxia secondary to combined systolic and diastolic congestive heart failure Lactic Acidosis Received Lasix IV Noted to have worsening kidney function, altered mental status, transferred to ICU Lasix IV held Patient also developed encephalopathy- lethargic continued to have worsening creatinine, liver function, lactic acidosis given Bicarb drip Intensive care service discussed case with patient's family, decision made to transition to palliative care Palliative care service consulted, plan to transition to home with hospice (2) Elevated troponin: Per ''s notes: -Serum troponin 0.070 and trended down, as per admission physician Dr. Ruggiero "No chest pain. Nonobstructive coronary artery disease as noted below. Doubt acute coronary syndrome. Elevated troponin probably secondary to decompensated CHF +/- CKD." (3) Coronary artery disease: Per ''s notes: -as per admission notes "Cardiac cath Jun 2019 at [facility] demonstrated nonobstructive coronary artery disease. No ASA- allergic. Not on beta chuckie due to bradycardia. Continue statin. 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 -unclear to suggest whether a correlation of falls at home to zaid or tachy arrhythmias. (6) Nonsustained ventricular tachycardia: -Noted on recent ZIO monitor when outpatient (7) Mitral valve regurgitation: -Status post mitral valve clip at [facility] Jun 2019. 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 (12) Dyslipidemia: History of stroke in the past -on 1 to 1 observation. (13) COVID-19 ruled out: -SARS-CoV-2 antigen and PCR both negative on admission (14) DVT prophylaxis: INR elevated (15) Do not resuscitate status: -Code Status is DNR/DNI as confirmed on admission by admitting physician and as confirmed by daughter Dyan on the phone (16) Discharge planning issues: Plan to transition to home with hospice Admission and Anticipated Discharge Date Admission Date: April 13, 2020 Subjective ff up for acute CHF, renal failure, etc seen resting in bed, sleeping, comfortable occasionally mumbles words using Bipap, not in distress per STORES LABORER and RN, patient has been comfortable had a bath this morning occasionally would answer with few words no other issues per RN, STORES LABORER Review of Systems Review of Systems: Unobtainable due to cognitive status Physical Exam Physical Exam: General- sleeping, not in distress, breathing with no effort or accessory muscle use Eyes- anicteric Neck- no JVD Lungs- clear breath sounds bilaterally no wheezing or rales Heart- normal rate, regular rhythm; no murmurs Abdomen- normal bowel sounds, nondistended, soft, nontender Extremities- no pretibial edema, no calf tenderness Neuro-sleeping Skin- warm & dry Results & Data Results & Data ([facility]) Vital Signs (Past 12 Hours) Vital Signs Temp Pulse Pulse Resp BP BP Pulse Ox 04/18/20 07:00 83 04/18/20 06:54 35.8 C L 85 16 113/65 97 04/18/20 04:28 98 H 107/65 04/18/20 03:49 105/49 L 04/18/20 03:29 35.8 C L 77 16 89/47 L 98 04/18/20 02:24 89 16 97 Laboratory Results Laboratory Results - last 24 hr 04/16/20 19:16 Hepatitis A IgM Ab NON-REACTIVE Hep B Core IgM Ab NON-REACTIVE
--- NOTE | 2020-04-18 15:06 | Discharge Summary ---
Date of Service April 18, 2020 Admission HPI Per Admitting Provider 89 YO male followed by Dr. Wheeler for Internal Medicine and Dr. Sherman for Cardiology. 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 Brought to ED by family because of increasing dyspnea and worsening edema over past week. (Son Jude at bedside and assisted with history). Dyspnea occurs with exertion. Chronic orthopnea- keeps head of bed elevated. No chest pain. No fever. Chronic cough, unchanged. No known exposure to COVID-19. Current prescribed furosemide dose is 80 mg in the morning and 40 mg in the afternoon. He has not been taking the afternoon dose recently because he needs to get up to urinate frequently during the night. Unable to weigh himself easily at home, so not sure how weights are trending. 2 falls last week without injury. Outpatient cardiac monitoring (ZIO patch) 02/23/20: AF with rates 40 - 138. Frequent ventricular ectopy with PVC's, occasional couplets, rare triplets, and nonsustained VT with runs as long as 18 beats. Referred to [facility] regarding tachy-zaid syndrome (appointment with Dr. See 04/26). Admission Exam Per Admitting Provider VS- as noted Constitutional- elderly male; no acute distress Eyes- PERRL, anicteric sclerae, conjunctivae normal ENMT- external ear and nose normal; oropharynx clear; dentition poor (few remaining teeth) Neck- trachea midline; no thyromegaly Respiratory- no respiratory distress; bibasilar rales Cardiovascular- irregularly irregular, II/ sys murmur LSB; no definite gallop appreciated; + JVD; 1-2+ pretibial & pedal edema; normal capillary refill; pedal pulses diminished Abdomen- normal bowel sounds, soft, nontender, nondistended; no palpable masses or hepatosplenomegaly Musculoskeletal- no cyanosis Skin- warm & dry; normal color; no rashes Neurologic- no facial palsy; no dysarthria or aphasia; motor strength extremities grossly intact; patellar DTR's 1/2 bilaterally Psychiatric- alert, oriented to person, place, year, president; normal affect Lymphatic- no cervical adenopathy Principal Diagnosis Acute on Chronic Systolic and Diastolic Congestive Heart Failure Discharge Exam General- sleeping, not in distress, breathing with no effort or accessory muscle use Eyes- anicteric Neck- no JVD Lungs- clear breath sounds bilaterally no wheezing or rales Heart- normal rate, regular rhythm; no murmurs Abdomen- normal bowel sounds, nondistended, soft, nontender Extremities- no pretibial edema, no calf tenderness Neuro-sleeping Skin- warm & dry Discharge Data Allergies Allergy/AdvReac Type Severity Reaction Status Date / Time aspirin Allergy Intermediate HIVES Verified 04/13/20 18:09 levofloxacin [From Levaquin] AdvReac Severe Delirium Verified 04/13/20 18:09 oxycodone AdvReac Mild INTOLERATE Verified 04/13/20 18:09 TO PERCOCET OR OXYCONTIN Consultations 04/13/20 17:37 ED Decision to Admit Stat 04/13/20 19:46 Consult Cardiology Routine 04/16/20 17:54 Consult Nephrology Routine 04/16/20 18:30 Consult Palliative Care Routine Procedures Performed Operation Date: 04/17/20 10:00 <No data on this case meets the specified criteria> Ordered Studies 04/16/20 00:00 MR brain wo con Routine FINDINGS: There is no mass, hematoma, midline shift, or acute infarct. The paranasal sinuses are clear. The mastoid air cells are clear. The ventricles and sulci demonstrate mild age-related involutional changes. Scattered foci of T2 hyperintensity seen within the periventricular and subcortical white matter are nonspecific but suggestive of mild microvascular ischemic changes. The major vascular flow voids at the skull base are well-maintained. Suboptimal evaluation due to the motion artifact. Old lacunar infarct within the right caudate head, unchanged. IMPRESSION: 1. Suboptimal study due to the motion artifact. No definite acute intracranial abnormality. 2. Mild atrophy and microvascular ischemic changes. 04/16/20 17:31 US liver Routine FINDINGS: Limited exam secondary to patient condition and body habitus. Pancreas is obscured by bowel gas. Nonspecific mildly heterogeneous appearance of the liver with slightly increased echogenicity. Trace perihepatic ascites. No hepatic mass lesion identified. Common bile duct 7 mm, normal for patient age. Sludge-filled gallbladder without shadowing cholelithiasis. Gallbladder wall is mildly thickened measuring up to 4 mm. Echogenic right kidney with decreased cortical medullary differentiation. Mild right renal atrophy without hydronephrosis. Cyst of the superior pole right kidney, 1.5 cm. IMPRESSION: 1. Hepatic steatosis. 2. Trace perihepatic ascites. 3. Sludge-filled gallbladder with mild nonspecific gallbladder wall thickening. No definite cholelithiasis. 4. Echogenic right kidney suggests chronic medical renal disease. 04/17/20 06:33 CL Cath Imgs for PACS use only Routine Hospital Course (1) Combined systolic and diastolic congestive heart failure: Hypoxia secondary to combined systolic and diastolic congestive heart failure Lactic Acidosis Received Lasix IV Noted to have worsening kidney function, altered mental status, transferred to ICU Lasix IV held Patient also developed encephalopathy- lethargic continued to have worsening creatinine, liver function, lactic acidosis given Bicarb drip Intensive care service discussed case with patient's family, decision made to transition to palliative care Palliative care service consulted, plan to transition to home with hospice (2) Elevated troponin: Per ''s notes: -Serum troponin 0.070 and trended down, as per admission physician Dr. Ruggiero " No chest pain. Nonobstructive coronary artery disease as noted below. Doubt acute coronary syndrome. Elevated troponin probably secondary to decompensated CHF +/- CKD." (3) Coronary artery disease: Per ''s notes: -as per admission notes "Cardiac cath Jun 2019 at [facility] demonstrated nonobstructive coronary artery disease. No ASA- allergic. Not on beta chuckie due to bradycardia. Continue statin. 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 -unclear to suggest whether a correlation of falls at home to zaid or tachy arrhythmias. (6) Nonsustained ventricular tachycardia: -Noted on recent ZIO monitor when outpatient (7) Mitral valve regurgitation: -Status post mitral valve clip at [facility] Jun 2019. 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 (12) Dyslipidemia: History of stroke in the past -on 1 to 1 observation. (13) COVID-19 ruled out: -SARS-CoV-2 antigen and PCR both negative on admission (14) DVT prophylaxis: INR elevated (15) Do not resuscitate status: -Code Status is DNR/DNI as confirmed on admission by admitting physician and as confirmed by daughter Dyan on the phone (16) Discharge planning issues: Plan to transition to home with hospice Total Time Total Time Spent Total Time Spent (In Minutes): 45 minutes Discharge Plan Discharge Items Patient Disposition: Hospice - Home Reason For Visit: CHF Discharge Diagnosis: Combined systolic and diastolic congestive heart failure (Hypoxia secondary to combined systolic and diastolic congestive heart failure) Activity: As commented below Activity Comment: As tolerated Non-emergency contact: Primary Care Provider Call non-emergency contact if: you have any medication questions Follow-up/Referrals: Felix Wheeler MD [Primary Care Provider] - Diet: Other - See Diet Comment Diet Comment: soft, easy to chew Addtl Attending Provider Instructions: Continue care with hospice service at home. PRN medications for comfort prescribed. Pending Studies at Discharge: No Stand-Alone Forms: My [employer], Smoking Cessation Medications and DC Order Prescriptions: New oxycodone 5 mg/5 mL Solution 5 mg PO Q4H PRN (Reason: pain) 10 Days Qty: 100 RF: 0 metoprolol succinate 25 mg Tablet Extended Release 24 Hr 12.5 mg PO QAM Qty: 30 RF: 0 scopolamine base [Transderm-Scop] 1 mg over 3 days Patch 3 Day 1.5 mg transdermal Q3D@0900 Qty: 10 RF: 0 nystatin [Nystop] 100,000 unit/gram Powder 1 applic EXT BID Qty: 30 RF: 0 Continued fluticasone propion-salmeterol [Advair Diskus] 500-50 mcg/dose blister with device 1 inh inhalation BID RF: 0 Spiriva with HandiHaler 18 mcg capsule, w/inhalation device 1 cap inhalation QAM RF: 0 cetirizine 5 mg Tablet 5 mg PO HS RF: 0 albuterol sulfate [Ventolin HFA] 90 mcg/actuation Hfa Aerosol Inhaler 1 puff INHALATION Q6H PRN (Reason: Shortness Of Breath) RF: 0 hydroxyzine HCl 10 mg Tablet 10 mg PO QID PRN (Reason: Itching) RF: 0 isosorbide dinitrate 10 mg Tablet 10 mg PO BID@0700,1200 Qty: 30 RF: 0 Discontinued atorvastatin 10 mg tablet 10 mg PO QAM RF: 0 warfarin 5 mg tablet See Rx Instructions .ROUTE .COMPLEX RF: 0 ferrous sulfate [iron] 325 mg (65 mg iron) Tablet 325 mg PO DAILY RF: 0 furosemide [Lasix] 40 mg tablet See Rx Instructions .ROUTE .COMPLEX RF: 0 Discharge Orders: Discharge Order (Routine); Ordered 04/18/20 Ordered By: Chicho Erickson Admission Data Admit Date/Time: 04/13/20 18:01 Attending Provider: Chicho Erickson Admit Provider: Rolando Ruggiero Primary Care Provider: Felix Wheeler Other Providers: [facility],Home [facility] ; Minh Ca ; Rolando Ruggiero ; Kingsley Preston Roshan ; Daniela Ferrell
[2020-04-18 15:32] VITALS: PULSE 84
[2020-04-18] MEDS ORDERED: CHECK SCOPOLAMINE PATCH PLACEMENT SCH (16:00)
== END 2020-04-18 17:42 | disposition hospice, home (50) | DRG 291 ==
LOC: ED 15:45 → 2S 18:01 → SUATTDRO 18:01 → 2S 20:01 → 1E 04-16 18:51 → 2N 04-17 20:06
DX: E11.22 Type 2 diabetes mellitus with diabetic chronic kidney disease; E46 Unspecified protein-calorie malnutrition; I48.20 Chronic atrial fibrillation, unspecified; I49.5 Sick sinus syndrome; Z88.5 Allergy status to narcotic agent; E11.641 Type 2 diabetes mellitus with hypoglycemia with coma; Z96.659 Presence of unspecified artificial knee joint; J44.9 Chronic obstructive pulmonary disease, unspecified; N18.4 Chronic kidney disease, stage 4 (severe); I34.0 Nonrheumatic mitral (valve) insufficiency; I50.43 Acute on chronic combined systolic (congestive) and diastolic (congestive) heart failure; J96.01 Acute respiratory failure with hypoxia; N17.9 Acute kidney failure, unspecified; Z66 Do not resuscitate; Z51.5 Encounter for palliative care; Z87.891 Personal history of nicotine dependence; D69.59 Other secondary thrombocytopenia; I42.9 Cardiomyopathy, unspecified; K72.00 Acute and subacute hepatic failure without coma; E87.2 Acidosis; E87.6 Hypokalemia; R79.89 Other specified abnormal findings of blood chemistry; G93.41 Metabolic encephalopathy; I47.2 Ventricular tachycardia; I25.10 Atherosclerotic heart disease of native coronary artery without angina pectoris; Z86.73 Personal history of transient ischemic attack (TIA), and cerebral infarction without residual deficits; E87.3 Alkalosis; Z88.1 Allergy status to other antibiotic agents; E11.40 Type 2 diabetes mellitus with diabetic neuropathy, unspecified; E78.5 Hyperlipidemia, unspecified